=== PATIENT | female | born 1985 | race Caucasian/White ===

== ENCOUNTER → 2017-12-04 22:05 | Outpatient (CLI) | payer OTHER, SELFPAY ==
[2017-12-04 22:23] LABS: Absolute Lymphocyte Count 3.22 X10^3/ul (0.83-4.51); Absolute Neutrophil Count 6.9 X10^3/uL (2.0-7.7); Basophil# 0.02 X10^3/uL; Basophil% 0.2 % (0-1); Eosinophil# 0.18 X10^3/uL; Eosinophils% 1.6 % (0-5); Hematocrit 40.2 % (37-47); Hemoglobin 12.9 g/dl (12.0-15.0); Lymphocyte # 3.22 X10^3/ul (4.0); Mean Corp Hgb Conc 32.1 g/gl (32-36); Mean Corpuscular Hgb 29.7 pg (27.0-32.0); Mean Corpuscular Volume 92.4 fL (81-99); Mean Platelet Vol. 9.2 fl (6.2-12.0); Monocyte# 0.74 X10^3/uL; Monocyte% 6.7 % (0-10); Neutrophil # 6.89 X10^3/uL (2.7-7.7); POSITIVE COUNT NO; POSITIVE DIFFERENTIAL NO; POSITIVE MORPHOLOGY NO; Platelet Count 429 K/mm3 (150-450); RBC Distribution Width CV 13.3 % (11.6-14.6); RBC Distribution Width SD 44.3 fl (35.1-43.9); Red Blood Count 4.35 M/mm3 (4.2-5.4); White Blood Count 11.1 K/mm3 (4.4-11.0)
[2017-12-04 22:35] LABS: AST(SGOT) 13 U/L (15-37); Alanine Aminotransfer ALT/SGPT 33 U/L (13-56); Albumin, Serum 4.2 g/dL (3.2-5.0); Alkaline Phosphatase 100 U/L (45-117); Anion Gap 9 (5-15); BUN 13 mg/dL (7-18); Calcium,Total 9.1 mg/dL (8.5-10.1); Chloride 99 mmol/L (98-107); Cholesterol 170 mg/dL (200); Creatinine, Serum 0.87 mg/dL (0.55-1.02); EST Glomerular Filtration Rate 80 mL/min (>60); Est Glom Filt Rate - Afr Amer 96 mL/min (>60); Globulin 4.3 g/dL (2.2-4.2); Glucose 90 mg/dL (74-106); High Density Lipoprotein 47 mg/dL; Potassium 4.5 mmol/L (3.5-5.1); Protein, Total 8.5 g/dL (6.4-8.2); Sodium Level 131 mmol/L (136-145); Thyroid Stim Hormone (TSH) 1.93 uIU/mL (0.358-3.74); Triglycerides 160 mg/dL; Very Low Density Lipoprotein 32 mg/dL (5-40)
== END ==
PROVIDERS: Referring Provider Nurse Practitioner; Visit Provider Nurse Practitioner
DX: I10 Essential (primary) hypertension (principal); E03.9 Hypothyroidism, unspecified
CPT/HCPCS: 80053; 80061; 84443; 85025

== ENCOUNTER → 2018-12-03 21:08 | Outpatient (CLI) | payer OTHER, SELFPAY ==
[2018-12-03 17:07] VITALS: BMI 53.7
[2018-12-03 21:20] LABS: Absolute Lymphocyte Count 3.12 X10^3/uL (0.83-4.51); Absolute Neutrophil Count 7.1 X10^3/uL (2.0-7.7); Basophil# 0.06 X10^3/uL; Basophil% 0.5 % (0-1); Eosinophil# 0.41 X10^3/uL; Eosinophils% 3.5 % (0-5); Hematocrit 40.3 % (37-47); Hemoglobin 12.6 g/dL (12.0-15.0); Lymphocyte # 3.12 X10^3/ul (4.0); Lymphocyte % 26.8 % (19-41); Mean Corp Hgb Conc 31.3 g/dL (32-36); Mean Corpuscular Hgb 29.5 pg (27.0-32.0); Mean Corpuscular Volume 94.4 fL (81-99); Mean Platelet Vol. 9.3 fl (6.2-12.0); Monocyte# 0.93 X10^3/uL; NRBC Flagged by Analyzer 0 % (0-5); Neutrophil # 7.08 X10^3/uL (2.7-7.7); Neutrophil % 60.7 % (47-70); Platelet Count 437 K/mm3 (150-450); RBC Distribution Width CV 12.9 % (11.6-14.6); RBC Distribution Width SD 44.4 fl (35.1-43.9); Red Blood Count 4.27 M/mm3 (4.2-5.4); White Blood Count 11.7 K/mm3 (4.4-11.0)
[2018-12-03 21:33] LABS: ALB/GLOB Ratio 0.9 RATIO (0.9-2.4); AST(SGOT) 17 U/L (15-37); Alanine Aminotransfer ALT/SGPT 44 U/L (13-56); Albumin, Serum 3.8 g/dL (3.2-5.0); Alkaline Phosphatase 98 U/L (45-117); Anion Gap 9 (5-15); BUN 15 mg/dL (7-18); BUN/Creat Ratio 14.6 RATIO (10-20); Calcium,Total 8.7 mg/dL (8.5-10.1); Chloride 104 mmol/L (98-107); Creatinine, Serum 1.03 mg/dL (0.55-1.02); EST Glomerular Filtration Rate 65 mL/min (>60); Est Glom Filt Rate - Afr Amer 79 mL/min (>60); Globulin 4.1 g/dL (2.2-4.2); Glucose 93 mg/dL (74-106); Potassium 4.4 mmol/L (3.5-5.1); Protein, Total 7.9 g/dL (6.4-8.2); Sodium Level 136 mmol/L (136-145)
== END ==
PROVIDERS: Referring Provider Nurse Practitioner; Visit Provider Nurse Practitioner
DX: I10 Essential (primary) hypertension (principal)
CPT/HCPCS: 80053; 85025

== ENCOUNTER → 2020-01-03 | Outpatient (CLI) | payer OTHER, SELFPAY ==
[2020-01-03 21:30] VITALS: BMI 53.6
[2020-01-03 21:47] LABS: Absolute Lymphocyte Count 3.41 X10^3/uL (0.83-4.51); Absolute Neutrophil Count 7.5 X10^3/uL (2.0-7.7); Basophil# 0.06 X10^3/uL; Basophil% 0.5 % (0-1); Eosinophil# 0.25 X10^3/uL; Hematocrit 41.4 % (37-47); Hemoglobin 12.9 g/dL (12.0-15.0); Lymphocyte # 3.41 X10^3/ul (4.0); Mean Corp Hgb Conc 31.2 g/dL (32-36); Mean Corpuscular Hgb 29.6 pg (27.0-32.0); Mean Platelet Vol. 9.4 fl (6.2-12.0); Monocyte# 0.89 X10^3/uL; Monocyte% 7.3 % (0-10); NRBC Flagged by Analyzer 0 % (0-5); Neutrophil # 7.54 X10^3/uL (2.7-7.7); Neutrophil % 61.8 % (47-70); Platelet Count 508 K/mm3 (150-450); RBC Distribution Width CV 12.7 % (11.6-14.6); RBC Distribution Width SD 44.1 fl (35.1-43.9); Red Blood Count 4.36 M/mm3 (4.2-5.4); White Blood Count 12.2 K/mm3 (4.4-11.0)
[2020-01-03 22:15] LABS: ALB/GLOB Ratio 0.9 RATIO (0.9-2.4); AST(SGOT) 17 U/L (15-37); Alanine Aminotransfer ALT/SGPT 45 U/L (13-56); Albumin, Serum 3.9 g/dL (3.2-5.0); Alkaline Phosphatase 108 U/L (45-117); Anion Gap 7 (5-15); BUN 16 mg/dL (7-18); BUN/Creat Ratio 16.2 RATIO (10-20); Calcium,Total 9.2 mg/dL (8.5-10.1); Chloride 103 mmol/L (98-107); Cholesterol 175 mg/dL (200); Creatinine, Serum 0.99 mg/dL (0.55-1.02); EST Glomerular Filtration Rate 68 mL/min (>60); Est Glom Filt Rate - Afr Amer 82 mL/min (>60); Globulin 4.4 g/dL (2.2-4.2); Glucose 89 mg/dL (74-106); High Density Lipoprotein 45 mg/dL; Potassium 4.7 mmol/L (3.5-5.1); Protein, Total 8.3 g/dL (6.4-8.2); Sodium Level 136 mmol/L (136-145); Triglycerides 198 mg/dL; Very Low Density Lipoprotein 40 mg/dL (5-40)
== END | disposition home or self-care (01) ==
PROVIDERS: Referring Provider Nurse Practitioner; Visit Provider Nurse Practitioner
DX: R00.0 Tachycardia, unspecified (principal); I10 Essential (primary) hypertension
CPT/HCPCS: 80053; 80061; 85025

== ENCOUNTER → 2021-01-05 | Outpatient (CLI) | payer OTHER, SELFPAY ==
[2021-01-05 22:13] LABS: Absolute Lymphocyte Count 3.27 X10^3/uL (0.83-4.51); Absolute Neutrophil Count 7.2 X10^3/uL (2.0-7.7); Basophil# 0.06 X10^3/uL; Basophil% 0.5 % (0-1); Eosinophil# 0.21 X10^3/uL; Eosinophils% 1.8 % (0-5); Hematocrit 41.7 % (37-47); Lymphocyte # 3.27 X10^3/ul (0.83-4.51); Lymphocyte % 28.2 % (19-41); Mean Corp Hgb Conc 31.2 g/dL (32-36); Mean Corpuscular Hgb 29.8 pg (27.0-32.0); Mean Corpuscular Volume 95.6 fL (81-99); Mean Platelet Vol. 9.4 fl (6.2-12.0); Monocyte# 0.83 X10^3/uL; Monocyte% 7.2 % (0-10); NRBC Flagged by Analyzer 0 % (0-5); Neutrophil # 7.17 X10^3/uL (2.7-7.7); Neutrophil % 61.8 % (47-70); Platelet Count 514 K/mm3 (150-450); RBC Distribution Width CV 12.7 % (11.6-14.6); RBC Distribution Width SD 44.7 fl (35.1-43.9); Red Blood Count 4.36 M/mm3 (4.2-5.4); White Blood Count 11.6 K/mm3 (4.4-11.0)
[2021-01-05 22:40] LABS: ALB/GLOB Ratio 0.8 RATIO (0.9-2.4); AST(SGOT) 14 U/L (15-37); Alanine Aminotransfer ALT/SGPT 32 U/L (13-56); Albumin, Serum 3.7 g/dL (3.2-5.0); Alkaline Phosphatase 94 U/L (45-117); Anion Gap 7 (5-15); BUN 17 mg/dL (7-18); BUN/Creat Ratio 18.5 RATIO (10-20); Calcium,Total 9.6 mg/dL (8.5-10.1); Chloride 103 mmol/L (98-107); Cholesterol 181 mg/dL (200); Creatinine, Serum 0.92 mg/dL (0.55-1.02); EST Glomerular Filtration Rate 74 mL/min (>60); Est Glom Filt Rate - Afr Amer 89 mL/min (>60); Globulin 4.7 g/dL (2.2-4.2); Glucose 88 mg/dL (74-106); High Density Lipoprotein 44 mg/dL; Potassium 4.6 mmol/L (3.5-5.1); Protein, Total 8.4 g/dL (6.4-8.2); Sodium Level 134 mmol/L (136-145); Thyroid Stim Hormone (TSH) 1.87 uIU/mL (0.358-3.74); Triglycerides 204 mg/dL; Very Low Density Lipoprotein 41 mg/dL (5-40)
== END | disposition home or self-care (01) ==
PROVIDERS: Referring Provider Nurse Practitioner; Visit Provider Nurse Practitioner
DX: I10 Essential (primary) hypertension (principal); E28.2 Polycystic ovarian syndrome; E03.9 Hypothyroidism, unspecified
CPT/HCPCS: 80053; 80061; 84443; 85025

== ENCOUNTER 2022-01-06 21:34 | Outpatient (CLI) | payer OTHER, SELFPAY ==
[2022-01-06 22:11] LABS: ALB/GLOB Ratio 0.8 RATIO (0.9-2.4); AST(SGOT) 23 U/L (15-37); Alanine Aminotransfer ALT/SGPT 40 U/L (13-56); Albumin, Serum 3.5 g/dL (3.2-5.0); Alkaline Phosphatase 97 U/L (45-117); BUN 13 mg/dL (7-18); BUN/Creat Ratio 14.5 RATIO (10-20); Calcium,Total 9.3 mg/dL (8.5-10.1); Cholesterol 190 mg/dL (200); EST Glomerular Filtration Rate 75 mL/min (>60); Est Glom Filt Rate - Afr Amer 91 mL/min (>60); Globulin 4.4 g/dL (2.2-4.2); Glucose 93 mg/dL (74-106); Protein, Total 7.9 g/dL (6.4-8.2); Sodium Level 136 mmol/L (136-145); Triglycerides 236 mg/dL
[2022-01-06 22:12] LABS: Anion Gap 6 (5-15); Chloride 105 mmol/L (98-107); High Density Lipoprotein 45 mg/dL; Potassium 4.5 mmol/L (3.5-5.1); Very Low Density Lipoprotein 47 mg/dL (5-40)
[2022-01-06 22:29] LABS: Absolute Lymphocyte Count 2.87 X10^3/uL (0.83-4.51); Absolute Neutrophil Count 6.2 X10^3/uL (2.0-7.7); Basophil# 0.04 X10^3/uL; Basophil% 0.4 % (0-1); Eosinophil# 0.26 X10^3/uL; Eosinophils% 2.6 % (0-5); Hematocrit 39.9 % (37-47); Hemoglobin 12.8 g/dL (12.0-15.0); Lymphocyte # 2.87 X10^3/ul (0.83-4.51); Lymphocyte % 28.3 % (19-41); Mean Corp Hgb Conc 32.1 g/dL (32-36); Mean Corpuscular Hgb 30.5 pg (27.0-32.0); Mean Platelet Vol. 9.5 fl (6.2-12.0); Monocyte# 0.75 X10^3/uL; Monocyte% 7.4 % (0-10); NRBC Flagged by Analyzer 0 % (0-5); Neutrophil # 6.18 X10^3/uL (2.7-7.7); Neutrophil % 60.9 % (47-70); Platelet Count 448 K/mm3 (150-450); RBC Distribution Width CV 13.7 % (11.6-14.6); RBC Distribution Width SD 47.2 fl (35.1-43.9); White Blood Count 10.1 K/mm3 (4.4-11.0)
== END 2022-01-06 23:59 | disposition home or self-care (01) ==
PROVIDERS: Visit Provider Nurse Practitioner
DX: Z00.00 Encounter for general adult medical examination without abnormal findings (principal)
CPT/HCPCS: 80053; 80061; 85025

== ENCOUNTER → 2023-01-04 | Outpatient (CLI) | payer OTHER, SELFPAY ==
[2023-01-04 20:33] LABS: Absolute Lymphocyte Count 2.82 X10^3/uL (0.83-4.51); Absolute Neutrophil Count 7.5 X10^3/uL (2.0-7.7); Basophil# 0.03 X10^3/uL; Basophil% 0.3 % (0-1); Eosinophil# 0.17 X10^3/uL; Eosinophils% 1.5 % (0-5); Hematocrit 40.3 % (37-47); Lymphocyte # 2.82 X10^3/ul (0.83-4.51); Mean Corp Hgb Conc 32.3 g/dL (32-36); Mean Corpuscular Hgb 30.4 pg (27.0-32.0); Mean Corpuscular Volume 94.4 fL (81-99); Mean Platelet Vol. 9.5 fl (6.2-12.0); Monocyte# 0.75 X10^3/uL; Monocyte% 6.7 % (0-10); NRBC Flagged by Analyzer 0 % (0-5); Neutrophil # 7.45 X10^3/uL (2.7-7.7); Neutrophil % 66.1 % (47-70); Platelet Count 442 K/mm3 (150-450); RBC Distribution Width CV 12.9 % (11.6-14.6); RBC Distribution Width SD 44.2 fl (35.1-43.9); Red Blood Count 4.27 M/mm3 (4.2-5.4); White Blood Count 11.3 K/mm3 (4.4-11.0)
[2023-01-04 21:01] LABS: ALB/GLOB Ratio 0.8 RATIO (0.9-2.4); AST(SGOT) 11 U/L (15-37); Alanine Aminotransfer ALT/SGPT 27 U/L (13-56); Albumin, Serum 3.3 g/dL (3.2-5.0); Alkaline Phosphatase 79 U/L (45-117); Anion Gap 8 (5-15); BUN 10 mg/dL (7-18); BUN/Creat Ratio 12.8 RATIO (10-20); Calcium,Total 9.5 mg/dL (8.5-10.1); Chloride 103 mmol/L (98-107); Cholesterol 154 mg/dL (200); Creatinine, Serum 0.78 mg/dL (0.55-1.02); EST Glomerular Filtration Rate 88 mL/min (>60); Est Glom Filt Rate - Afr Amer 106 mL/min (>60); Globulin 4.4 g/dL (2.2-4.2); Glucose 97 mg/dL (74-106); High Density Lipoprotein 52 mg/dL; Potassium 4.3 mmol/L (3.5-5.1); Protein, Total 7.7 g/dL (6.4-8.2); Sodium Level 134 mmol/L (136-145); Thyroid Stim Hormone (TSH) 2.45 uIU/mL (0.358-3.74); Triglycerides 186 mg/dL; Very Low Density Lipoprotein 37 mg/dL (5-40)
[2023-01-04 21:19] LABS: hCG Titer Quant., Serum 23683 mIU/mL (1-3)
== END | disposition home or self-care (01) ==
PROVIDERS: PCP Nurse Practitioner; Visit Provider Nurse Practitioner
DX: O16.9 Unspecified maternal hypertension, unspecified trimester (principal); O99.280 Endocrine, nutritional and metabolic diseases complicating pregnancy, unspecified trimester; E03.9 Hypothyroidism, unspecified; E78.1 Pure hyperglyceridemia; Z3A.00 Weeks of gestation of pregnancy not specified
CPT/HCPCS: 80053; 80061; 84443; 84702; 85025

== ENCOUNTER → 2023-01-24 | Outpatient (CLI) | payer OTHER, SELFPAY ==
[2023-01-24 15:09] LABS: Absolute Lymphocyte Count 2.87 X10^3/uL (0.83-4.51); Absolute Neutrophil Count 8.1 X10^3/uL (2.0-7.7); Basophil# 0.04 X10^3/uL; Basophil% 0.3 % (0-1); Eosinophil# 0.11 X10^3/uL; Eosinophils% 0.9 % (0-5); Hematocrit 37.8 % (37-47); Hemoglobin 12.4 g/dL (12.0-15.0); Lymphocyte # 2.87 X10^3/ul (0.83-4.51); Lymphocyte % 24.3 % (19-41); Mean Corp Hgb Conc 32.8 g/dL (32-36); Mean Corpuscular Hgb 29.7 pg (27.0-32.0); Mean Corpuscular Volume 90.6 fL (81-99); Mean Platelet Vol. 9.2 fl (6.2-12.0); Monocyte# 0.68 X10^3/uL; Monocyte% 5.7 % (0-10); NRBC Flagged by Analyzer 0 % (0-5); Neutrophil # 8.08 X10^3/uL (2.7-7.7); Neutrophil % 68.4 % (47-70); Platelet Count 413 K/mm3 (150-450); RBC Distribution Width CV 12.6 % (11.6-14.6); RBC Distribution Width SD 41.7 fl (35.1-43.9); Red Blood Count 4.17 M/mm3 (4.2-5.4); White Blood Count 11.8 K/mm3 (4.4-11.0)
[2023-01-24 15:36] LABS: Hemoglobin A1c 5.8 % (3.8-5.6)
[2023-01-24 15:38] LABS: ALB/GLOB Ratio 0.7 RATIO (0.9-2.4); AST(SGOT) 14 U/L (15-37); Alanine Aminotransfer ALT/SGPT 32 U/L (13-56); Albumin, Serum 3.1 g/dL (3.2-5.0); Alkaline Phosphatase 93 U/L (45-117); Anion Gap 8 (5-15); BUN 11 mg/dL (7-18); BUN/Creat Ratio 13.2 RATIO (10-20); Calcium,Total 9.5 mg/dL (8.5-10.1); Chloride 104 mmol/L (98-107); Creatinine, Serum 0.83 mg/dL (0.55-1.02); EST Glomerular Filtration Rate 81 mL/min (>60); Est Glom Filt Rate - Afr Amer 98 mL/min (>60); Globulin 4.5 g/dL (2.2-4.2); Glucose 95 mg/dL (74-106); Potassium 3.1 mmol/L (3.5-5.1); Protein, Total 7.6 g/dL (6.4-8.2); Sodium Level 135 mmol/L (136-145)
[2023-01-24 16:13] LABS: HIV - WCH Non-Reactive (Nonreactive); Hepatitis B Surface Antigen Non-Reactive (Nonreactive); Hepatitis C Antibody Non-Reactive (Nonreactive); Rubella IgG Reactive (Nonreactive); Syphilis Antibodies Non-reactive
[2023-01-24 16:44] LABS: NATERA MAILED SPECIMEN
[2023-01-24 18:05] LABS: Protein:Creat Ratio 115 mg/g CRE (0-200)
[2023-01-26 22:06] LABS: Chlamydia By Nucleic Acid AMP Negative (Negative); Gonococcus By Nucleic Acid AMP Negative (Negative)
[2023-01-28 21:07] LABS: HPV APTIMA, High Risk Negative (Negative)
== END | disposition home or self-care (01) ==
PROVIDERS: PCP Nurse Practitioner; Referring Provider Obstetrics & Gynecology; Visit Provider Obstetrics & Gynecology
DX: Z12.4 Encounter for screening for malignant neoplasm of cervix (principal); E66.01 Morbid (severe) obesity due to excess calories; O99.211 Obesity complicating pregnancy, first trimester; Z3A.00 Weeks of gestation of pregnancy not specified; O99.281 Endocrine, nutritional and metabolic diseases complicating pregnancy, first trimester; E03.9 Hypothyroidism, unspecified; O16.1 Unspecified maternal hypertension, first trimester; Z31.430 Encounter of female for testing for genetic disease carrier status for procreative management
CPT/HCPCS: 36415; 80053; 82570; 83036; 84156; 84439; 84443; 85025; 86703; 86762; 86780; 86803; 86850; 86900; 86901; 87086; 87340; 87491; 87591; 87624; 88175; G0145

== ENCOUNTER → 2023-05-03 | Outpatient (CLI) | payer OTHER, SELFPAY ==
--- NOTE | 2023-05-03 08:58 | ECHOD_ITS ---
Reason For Study: ARRHYTHMIA Procedure This was a 2D Doppler, Color Flow transthoracic echocardiogram. The study was technically difficult. Unable to utilize Definity for endocardiall image enhancement due to . Exam performed in department. Left Ventricle Normal LV size. Left ventricular systolic function is normal. The estimated ejection fraction is 57 %. Normal diastology for age. No regional wall motion abnormalities noted. Right Ventricle Normal RV size. Normal systolic function. Atria Normal left atrium. Normal right atrium. Mitral Valve Normal mitral valve. Tricuspid Valve Normal tricuspid valve. Mild (1+) tricuspid valve insufficiency. Pulmonary artery systolic pressure is 31 mmHg. Aortic Valve Trisinus/trileaflet aortic valve. Pulmonic Valve Normal pulmonic valve. Great Vessels Normal aortic root. The pulmonary artery is normal size. Inferior vena cava collapse with respiration. Pericardium/Pleural No pericardial effusion. MMode/2D Measurements & Calculations LVIDd: 5.6 cm IVSd: 0.67 cm Ao root diam: 3.0 cm LVIDs: 3.5 cm LVPWd: 0.93 cm RVDd: 3.7 cm FS: 38.8 % LAV(MOD-bp): 43.9 ml LVAd ap4: 36.6 cm2 SV(MOD-sp4): 68.7 ml LAV(MOD-bp) Indexed: 17.7 ml/m2 LVLd ap4: 8.7 cm LAV(MOD-sp2): 43.5 ml EDV(MOD-sp4): 126.3 ml LAV(MOD-sp4): 43.5 ml EDV(sp4-el): 131.5 ml LVAs ap4: 22.7 cm2 LVLs ap4: 7.8 cm ESV(MOD-sp4): 57.7 ml ESV(sp4-el): 55.9 ml EF(MOD-sp4): 54.3 % EF(sp4-el): 57.5 % SV(sp4-el): 75.6 ml LA A4 area: 16.0 cm2 LA dimension(2D): 3.7 cm RA A4 area: 11.5 cm2 Time Measurements MV dec time: 0.18 sec Doppler Measurements & Calculations MV E max keith: 61.9 cm/sec Lat Peak E' Keith: 11.1 cm/sec Med Peak E' Keith: 9.8 cm/sec MV A max keith: 71.6 cm/sec E/E' lat: 5.6 E/E' med: 6.3 MV E/A: 0.86 MV V2 max: 78.6 cm/sec MV P1/2t max keith: 69.6 cm/sec Ao V2 max: 143.9 cm/sec MV max P.5 mmHg MV P1/2t: 51.8 msec Ao max P.3 mmHg MV V2 mean: 53.8 cm/sec Ao V2 mean: 103.5 cm/sec MV mean P.3 mmHg MV dec slope: 394.0 cm/sec2 Ao mean P.6 mmHg MV V2 VTI: 15.9 cm MVA(P1/2t): 4.2 cm2 Ao V2 VTI: 26.7 cm AV (velocity ratio): 0.85 LV V1 max: 112.9 cm/sec PA V2 max: 118.2 cm/sec TR max keith: 272.1 cm/sec LV V1 max P.1 mmHg PA V2 mean: 83.0 cm/sec TR max P.6 mmHg LV V1 mean P.3 mmHg LV V1 mean: 87.7 cm/sec LV V1 VTI: 22.5 cm ECHO/Echo Complete Interpretation Summary Normal LV size. Left ventricular systolic function is normal. The estimated ejection fraction is 57 %. Pulmonary artery systolic pressure is 31 mmHg. Ordering Physician: Quincy Wang Referring Physician: Elizabeth Saeed; Mary Lou Merino Performed By: Emilie Ventura, PRINCE, RVT
--- OUTSIDE RECORDS SUMMARY | 2023-05-03 09:46 | XMS RPT_ITS | CCD ---
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, Nemesio L Primary Care Provide r Mary Lou Esposito DO Unavailable HAROLDO NEMESIO Gautam Primary Care Unavailable AYAH ANGELES Attending Unavailable MARY LOU ESPOSITO Referring Unavailab EVERARDO Vincent Referring Unavailable YASMANY PAINTING Attending Unavailable NEMESIO SAEED Primary Care Unavailable EVERARDO SOLIMAN Attending Unavailable EVERARDO SOLIMAN Referring Unavailable HAROLDO NEMESIO Gautam Primary Care Unavailable VELVET SAEEDA Gautam Primary Care Unavailable MARY LOU ESPOSITO Attending Unavailab MARY LOU Berman Referring Unavailab ELMA Rodriguez Referring Unavailable VELVET SAEEDA Gautam Primary Care Unavailable SALVATORE HUYNH Attending Unavailable NEMESIO SAEED Primary Care Unavailable SALVATORE HUYNH Referring Unavailable GUS KRAUSE Attending Unavailable NEMESIO SAEED Primary Care Unavailable SHAILA MALDONADO Attending UnavailMARY LOU Copeland Referring Unavailab le Medications Current Medications Medication Drug Class(es) Dates Sig (Normalized) Sig (Original) Blood Glucose Monitoring Suppl (ONE TOUCH ULTRA 2) w/Device KIT (1 source) Start: 4 Blood Glucose Monitoring Suppl (ONE TOUCH ULTRA 2) w/Device KIT See Admin Instructions 02/23/2023 Active 24 hr dilTIAZem hydrochloride 120 mg extended release oral capsule (1 source) Calcium Channel Gregorio Start: 3 take 1 capsule by mouth once daily dilTIAZem (CARDIZEM CD) 120 MG CP24 capsule Take 1 Capsule (120 mg) by mouth daily 02/14/2023 Active hydroCHLOROthiazide 25 mg oral tablet (1 source) Thiazide Diuretic Start: 3 take 1 tablet by mouth once daily hydroCHLOROthiazide (HYDRODIURIL) 25 MG TABS tablet Take 1 Tablet (25 mg) by mouth daily 01/17/2023 Active 3 ml insulin isophane, human 100 unt/ml pen injector (1 source) Start: 4 NOVOLIN N FLEXPEN 100 UNIT/ML SUPN Taking 70 units hs 03/06/2023 Active levothyroxine sodium 0.137 mg oral tablet (1 source) l-Thyroxine Start: 4 take 1 tablet by mouth once daily levothyroxine (SYNTHROID) 137 MCG tablet Take 1 Tablet (137 mcg) by mouth daily 02/23/2023 Active metFORMIN hydrochloride 1000 mg oral tablet (1 source) Biguanide Start: 4 take 1 tablet by mouth twice daily metFORMIN (GLUCOPHAGE) 1000 MG Take 1 Tablet (1,000 mg) by mouth 2 times daily 02/23/2023 Active MV-Min-Fe Fum-FA-DHA ( 1 PO) (1 source) MV-Min- Fe Fum-FA-DHA ( 1 PO) Take by mouth Active Problems Problem Classification Problem Date Documented Date Episodic/Chronic Diabetes or abnormal glucose tolerance complicating ; childbirth; or the puerperium (1 source) and type 2 diabetes mellitus; Translations: [Pre-existing type 2 diabetes mellitus, in , second trimester] Onset: 03-13-2023 03-20-2023 Chronic Hypertension complicating ; childbirth and the puerperium (1 source) Benign essential hypertension complicating AND/OR reason for care during ; Translations: [Pre-existing essential hypertension complicating , unspecified trimester] Onset: 03-13-2023 03-20-2023 Chronic Other complications of (1 source) Hypothyroidism in ; Translations: [Endocrine, nutritional and metabolic diseases complicating , unspecified trimester] Onset: 03-13-2023 03-20-2023 Episodic Other endocrine disorders (1 source) Polycystic ovary syndrome; Translations: [Polycystic ovarian syndrome] Onset: 03-13-2023 03-13-2023 Chronic Other nutritional; endocrine; and metabolic disorders (1 source) Obesity; Translations: [Obesity, unspecified] Onset: 03-13-2023 03-13-2023 Chronic Other screening for suspected conditions (not mental disorders or infectious disease) (1 source) Patient encounter status; Translations: [Encounter for screening for malformations] 04-10-2023 Episodic Residual codes; unclassified (2 sources) Family history of congenital anomaly of cardiovascular system; Translations: [Family history of other congenital malformations, deformations and chromosomal abnormalities] Onset: 03-20-2023 04-10-2023 Episodic Results Test Name Value Interpretation Reference Range Facil ity Encounters Encounter Date Encounter Type Care Provider Facility Start: 04-26-2023 End: 04-26-2023 ambulatory [facility] Start: 04-10-2023 End: 04-11-2023 ambulatory [facility] Start: 04-10-2023 End: 04-10-2023 Subsequent hospital visit by physician Everardo Soliman MD Work Phone: [facility] Plan of Treatment Date Care Activity Detail Author Start: 08-03-2023 End: 08-03-2023 Professional / ancillary services management 08/03/2023 2:00 PM EDT Ancillary Procedure Visit [facility] [address], [address] [place], [place] [address] [facility] Start: 07-06-2023 End: 07-06-2023 Professional / ancillary services management 07/06/2023 2:00 PM EDT Ancillary Procedure Visit [facility] [address], [address] [place], [place] [address] [facility] Start: 06-08-2023 End: 06-08-2023 Professional / ancillary services management 06/08/2023 2:00 PM EDT Ancillary Procedure Visit [facility] [address] [place] [address] [facility] Start: 05-11-2023 End: 05-11-2023 Professional / ancillary services management 05/11/2023 2:00 PM EDT Ancillary Procedure [facility] [address] [place] [address] [facility] Start: 04-26-2023 End: 04-26-2023 Patient encounter procedure 04/26/2023 8:00 AM EST Office Visit [facility] [address], [place] [id number] Everardo Soliman MD [address] [address] [place], [place] [id number] Yasmany Painting MD [place], [place] [id number] [facility] Start: 10-21-2022 COVID-19 (2022-03 4 season) COVID-19 ( season) [facility] Start: 2005 Microscopic observat ion [Identifier] in Cervix by Cyto stain Pap Smear [facility] Start: 06-27-2003 Hepatitis B (1 of 3 - 19+ 3-dose series) Hepatitis B (1 of 3 - 19+ 3-dose series) [facility] Start: 2000 MenB (1 of 2 - MenB 2-Dose Series Bexsero) MenB (1 of 2 - MenB 2-Dose Series Bexsero) [facility] Start: 1997 Varicella (1 of 2 - 13+ 2-dose series) Varicella (1 of 2 - 13+ 2-dose series) [facility] Start: 06-27-1991 Tetanus Diphtheria a nd Pertussis Vaccines (1 - Tdap) Tetanus Diphtheria and Pertussis Vaccines (1 - Tdap) [facility] Start: 1985 MMR (1 of 1 - Standa rd series) MMR (1 of 1 - Standard series) [facility] Start: 1984 Hemoglobin A1c/Hemoglobin.total in Blood HbA1c [facility] End: 04-10-2023 [facility] Test: Chromosomes 13, 18, 21, X&Y, Triploidy, Optional 22Q 11.2 Deletion Panorame Test: Chromosomes 13, 18, 21, X&Y, Triploidy, Optional 22Q 11.2 Deletion Lab Timed Screening, , for malformation by ultrasound Family history of congenital cardiac septal defect 1 Occurrences starting 04/10/2023 until 04/10/2023 [facility] Work Phone: Payers Date Payer Category Payer Unknown 1984 Unknown [id number] 2.16.8 [id number] 1984 Unknown [id number] 2.16.8 [id number] 1984 Unknown [id number] 2.16.8 [id number] 1984 Unknown [id number] 2.16.8 [id number] 1984 Unknown [id number] 2.16. [id number] 1984 Unknown [id number] 2.16. [id number] 1984 Unknown [id number] 2.16. [id number] 1984 Unknown [id number] 2.16. [id number] 1984 Unknown [id number] 2.16. [id number] 1984 Unknown [id number] 2.16. [id number] 1984 Unknown [id number] 2.16. [id number] Unknown [id number] Social History Date Type Detail Facility Start: 03-13-2023 Tobacco smoking stat us NHIS Never smoked tobacco [facility] Start: 03-13-2023 Tobacco use and exposure Smokeless tobacco non-user [facility] Start: 04-10-2023 Alcoholic beverage intake Ex-drinker (finding) [facility] Start: 04-10-2023 History of Social function [facility] Start: 04-10-2023 Tobacco use panel [facility] Start: 11-04-2022 [facility] Start: 1985 Sex assigned at Not on file A [facility] Medical Equipment Procedure Code Equipment Code Equipment Origin al Text Equipment Identifier Dates Start: 02-23-2023 Evaluation note Note Date & Type Note Facility documented in this encounter [facility] Summary Purpose Family History No Family History Records FoundNo Family History Records Found Advance Directives No Advanced Directives Records FoundNo Advanced Directives Records Found Additional Source Comments INFORMATION SOURCE (unrecogn ized section and content) DATE CREATED AUTHOR AUTHOR'S ORGANIZ ATION 04/26/2023 [facility] Care Teams (unrecognized sec tion and content) FOR RECORDS PERTAINING TO PATIENTS WHO ARE OR HAVE BEEN ENROLLED IN A CHEMICAL DEPENDENCY/SUBSTANCEABUSE PROGRAM, SOME INFORMATION MAY BE OMITTED. This clinical summary was aggregated from multiple sources. Caution should be exercised in using it in the provision of clinical care. This summary normalizes information from multiple sources, and as a consequence, information in this document may materially change the coding, format and clinical context of patient data. In addition, data may be omitted in some cases. CLINICAL DECISIONS SHOULD BE BASED ON THE PRIMARY CLINICAL RECORDS. [facility] [employer] provides no warranty or guarantee of the accuracy or completeness of information in this document.
[2023-05-03 14:29] LABS: Absolute Neutrophil Count 10.2 X10^3/uL (2.0-7.7); Basophil# 0.02 X10^3/uL; Basophil% 0.1 % (0-1); Eosinophil# 0.12 X10^3/uL; Eosinophils% 0.9 % (0-5); Hematocrit 36.7 % (37-47); Lymphocyte % 17.8 % (19-41); Mean Corp Hgb Conc 32.7 g/dL (32-36); Mean Corpuscular Hgb 28.2 pg (27.0-32.0); Mean Corpuscular Volume 86.4 fL (81-99); Mean Platelet Vol. 9.1 fl (6.2-12.0); Monocyte# 0.62 X10^3/uL; Monocyte% 4.6 % (0-10); NRBC Flagged by Analyzer 0 % (0-5); Neutrophil # 10.24 X10^3/uL (2.7-7.7); Neutrophil % 76.2 % (47-70); Platelet Count 390 K/mm3 (150-450); RBC Distribution Width CV 13.8 % (11.6-14.6); RBC Distribution Width SD 43.2 fl (35.1-43.9); Red Blood Count 4.25 M/mm3 (4.2-5.4); White Blood Count 13.5 K/mm3 (4.4-11.0)
[2023-05-03 14:48] LABS: ALB/GLOB Ratio 0.6 RATIO (0.9-2.4); AST(SGOT) 13 U/L (15-37); Alanine Aminotransfer ALT/SGPT 18 U/L (13-56); Albumin, Serum 2.9 g/dL (3.2-5.0); Alkaline Phosphatase 99 U/L (45-117); Anion Gap 9 (5-15); BUN 11 mg/dL (7-18); Chloride 106 mmol/L (98-107); Creatinine, Serum 0.65 mg/dL (0.55-1.02); EST Glomerular Filtration Rate 109 mL/min (>60); Est Glom Filt Rate - Afr Amer 132 mL/min (>60); Globulin 4.7 g/dL (2.2-4.2); Glucose 92 mg/dL (74-106); Potassium 3.5 mmol/L (3.5-5.1); Protein, Total 7.6 g/dL (6.4-8.2); Sodium Level 136 mmol/L (136-145)
[2023-05-03 15:17] LABS: HIV - WCH Non-Reactive (Nonreactive); Syphilis Antibodies Non-reactive
== END | disposition home or self-care (01) ==
PROVIDERS: Obstetrics & Gynecology; PCP Nurse Practitioner; Referring Provider Internal Medicine Cardiovascular Disease; Visit Provider Internal Medicine Cardiovascular Disease
DX: O99.411 Diseases of the circulatory system complicating pregnancy, first trimester (principal); I07.1 Rheumatic tricuspid insufficiency; O99.891 Other specified diseases and conditions complicating pregnancy; R00.0 Tachycardia, unspecified; O09.91 Supervision of high risk pregnancy, unspecified, first trimester; Z3A.00 Weeks of gestation of pregnancy not specified; O24.111 Pre-existing type 2 diabetes mellitus, in pregnancy, first trimester; O16.1 Unspecified maternal hypertension, first trimester
CPT/HCPCS: 36415; 80053; 85025; 86703; 86780; 93306

== ENCOUNTER → 2023-06-12 | Outpatient (CLI) | payer OTHER, SELFPAY ==
--- NOTE | 2023-06-12 15:17 | US_ITS ---
STUDY: OBSTETRICAL ULTRASOUND - BIOPHYSICAL PROFILE REASON FOR EXAM: Female, 37 years old single artery and vein of umbilical cord LMP: 10/21/2022 PRIOR ULTRASOUND: None. TECHNIQUE: Transabdominal TECHNICAL QUALITY: Adequate. FINDINGS: There is a single intrauterine fetus. The fetus is in a cephalic presentation. There is demonstrated cardiac activity with a heart rate of 152 bpm. There is a normal amniotic fluid volume. The largest amniotic fluid pocket measures 5.3 cm. The amniotic fluid index (JODI) is 15 cm. The placenta is anterior in location and is not low lying. There are Grade 2 placental changes. Age by LMP: 33 weeks, 3 days. GARRET by LMP: 07/28/2023. BIOPHYSICAL PROFILE: Breathing Movements (FBM): 2 Gross Body Movements (GBM): 2 Tone (FT): 2 Amniotic Fluid Volume (AFV): 2 TOTAL SCORE: 8 / 8 US/Biophysical Prof W/O Non Stres IMPRESSION: Normal biophysical profile of 09/27. Electronically Signed: Mykel Steinberg MD at 16:15 EDT ,
== END | disposition home or self-care (01) ==
LOC: US 15:16
PROVIDERS: PCP Nurse Practitioner; Referring Provider Obstetrics & Gynecology; Visit Provider Obstetrics & Gynecology
DX: O69.5XX0 Labor and delivery complicated by vascular lesion of cord, not applicable or unspecified (principal); Z3A.00 Weeks of gestation of pregnancy not specified
CPT/HCPCS: 76819

== ENCOUNTER → 2023-06-15 | Outpatient (CLI) | payer OTHER, SELFPAY ==
--- NOTE | 2023-06-15 12:12 | US_ITS ---
STUDY: OBSTETRICAL ULTRASOUND - BIOPHYSICAL PROFILE REASON FOR EXAM: Female, 37 years old well being, single artery and vein of umbilical cord LMP: October 21, 2022. PRIOR ULTRASOUND: Comparison is made with prior study June 12, 2023. TECHNIQUE: Transabdominal TECHNICAL QUALITY: Adequate. FINDINGS: There is a single intrauterine fetus. The fetus is in a cephalic presentation. There is demonstrated cardiac activity with a heart rate of 147 bpm. There is a normal amniotic fluid volume. The largest amniotic fluid pocket measures 5.9 cm. The amniotic fluid index (JODI) is 15.1 cm. The placenta is anterior in location and is not low lying. There are Grade 2 placental changes. Age by LMP: 33 weeks, 6 days. GARRET by LMP: July 28, 2023. BIOPHYSICAL PROFILE: Breathing Movements (FBM): 2 Gross Body Movements (GBM): 2 Tone (FT): 2 Amniotic Fluid Volume (AFV): 2 TOTAL SCORE: 8 / 8 US/Biophysical Prof W/O Non Stres IMPRESSION: Normal biophysical profile of 8/8. Electronically Signed: Sammy Vazquez MD at 9:20 EDT ,
== END | disposition home or self-care (01) ==
LOC: OPUS 12:09
PROVIDERS: PCP Nurse Practitioner; Referring Provider Obstetrics & Gynecology; Visit Provider Obstetrics & Gynecology
DX: O69.5XX0 Labor and delivery complicated by vascular lesion of cord, not applicable or unspecified (principal); Z3A.33 33 weeks gestation of pregnancy
CPT/HCPCS: 76819

== ENCOUNTER → 2023-06-19 | Outpatient (CLI) | payer OTHER, SELFPAY ==
--- NOTE | 2023-06-19 15:29 | US_ITS ---
STUDY: OBSTETRICAL ULTRASOUND - BIOPHYSICAL PROFILE REASON FOR EXAM: Female, 37 years old single artery and vein of umbilical cord LMP: PRIOR ULTRASOUND: None. TECHNIQUE: Transabdominal TECHNICAL QUALITY: Adequate. FINDINGS: There is a single intrauterine fetus. The fetus is in a cephalic presentation. There is demonstrated cardiac activity with a heart rate of 167 bpm. There is a normal amniotic fluid volume. The largest amniotic fluid pocket measures 5.3 x 4.2 cm. The amniotic fluid index (JODI) is 10.43 cm. The placenta is anterior and not low-lying There are Grade 2 placental changes. Age by LMP: 34 weeks, 3 days. GARRET by LMP: July 28, 2023. BIOPHYSICAL PROFILE: Breathing Movements (FBM): 2 Gross Body Movements (GBM): 2 Tone (FT): 2 Amniotic Fluid Volume (AFV): 2 TOTAL SCORE: 8 / 8 US/Biophysical Prof W/O Non Stres IMPRESSION: Normal biophysical profile of 09/27. Electronically Signed: Marvin Newton MD at 16:10 EDT ,
== END | disposition home or self-care (01) ==
PROVIDERS: PCP Nurse Practitioner; Referring Provider Obstetrics & Gynecology; Visit Provider Obstetrics & Gynecology
DX: O69.5XX0 Labor and delivery complicated by vascular lesion of cord, not applicable or unspecified (principal); Z3A.34 34 weeks gestation of pregnancy
CPT/HCPCS: 76819

== ENCOUNTER → 2023-06-22 | Outpatient (CLI) | payer OTHER, SELFPAY ==
--- NOTE | 2023-06-22 15:14 | US_ITS ---
STUDY: OBSTETRICAL ULTRASOUND - BIOPHYSICAL PROFILE REASON FOR EXAM: Female, 37 years old single artery and vein of umbilical cord- WELL BEING LMP: 10/21/2022 PRIOR ULTRASOUND: 06/19/2023. TECHNIQUE: Transabdominal TECHNICAL QUALITY: Adequate. FINDINGS: There is a single intrauterine fetus. The fetus is in a cephalic presentation. There is demonstrated cardiac activity with a heart rate of 164 bpm. There is a normal amniotic fluid volume. The largest amniotic fluid pocket measures 6.2 cm. The amniotic fluid index (JODI) is 11.8 cm. The placenta is anterior in location and is not low lying. There are Grade 2 placental changes. Age by LMP: 34 weeks, 6 days. GARRET by LMP: 07/28/2023. BIOPHYSICAL PROFILE: Breathing Movements (FBM): 2 Gross Body Movements (GBM): 2 Tone (FT): 2 Amniotic Fluid Volume (AFV): 2 TOTAL SCORE: 8 / 8 US/Biophysical Prof W/O Non Stres IMPRESSION: Normal biophysical profile of 09/27. Electronically Signed: Mykel Steinberg MD at 20:55 EDT ,
== END | disposition home or self-care (01) ==
LOC: US 15:13
PROVIDERS: PCP Nurse Practitioner; Referring Provider Obstetrics & Gynecology; Visit Provider Obstetrics & Gynecology
DX: Q27.0 Congenital absence and hypoplasia of umbilical artery (principal)
CPT/HCPCS: 76819

== ENCOUNTER → 2023-06-26 | Outpatient (CLI) | payer OTHER, SELFPAY ==
--- NOTE | 2023-06-26 15:28 | US_ITS ---
STUDY: OBSTETRICAL ULTRASOUND - BIOPHYSICAL PROFILE REASON FOR EXAM: Female, 38 years old single artery and vein of umbilical cord LMP: October 21, 2022. PRIOR ULTRASOUND: Comparison is made with prior study dated June 22, 2023. TECHNIQUE: Transabdominal TECHNICAL QUALITY: Adequate. FINDINGS: There is a single intrauterine fetus. The fetus is in a cephalic presentation. There is demonstrated cardiac activity with a heart rate of 144 bpm. There is a normal amniotic fluid volume. The largest amniotic fluid pocket measures 4.5 cm. The amniotic fluid index (JODI) is 11.4 cm. The placenta is anterior in location and is not low lying. There are Grade 3 placental changes. Age by LMP: 35 weeks, 3 days. GARRET by LMP: July 28, 2023. BIOPHYSICAL PROFILE: Breathing Movements (FBM): 2 Gross Body Movements (GBM): 2 Tone (FT): 2 Amniotic Fluid Volume (AFV): 2 TOTAL SCORE: 8 / 8 US/Biophysical Prof W/O Non Stres IMPRESSION: Normal biophysical profile of 09/27. Electronically Signed: Sammy Vazquez MD at 14:25 EDT ,
== END | disposition home or self-care (01) ==
LOC: OPUS 15:25 → US 15:27
PROVIDERS: Obstetrics & Gynecology; PCP Nurse Practitioner; Referring Provider Obstetrics & Gynecology; Visit Provider Obstetrics & Gynecology
DX: O69.5XX0 Labor and delivery complicated by vascular lesion of cord, not applicable or unspecified (principal); Z3A.00 Weeks of gestation of pregnancy not specified; Z80.3 Family history of malignant neoplasm of breast
CPT/HCPCS: 36415; 76819; 84443

== ENCOUNTER → 2023-06-29 | Outpatient (CLI) | payer OTHER, SELFPAY ==
--- NOTE | 2023-06-29 15:12 | US_ITS ---
STUDY: OBSTETRICAL ULTRASOUND - BIOPHYSICAL PROFILE REASON FOR EXAM: Female, 38 years old single artery and vein of umbilical cord LMP: PRIOR ULTRASOUND: 06/26/2023 TECHNIQUE: Transabdominal TECHNICAL QUALITY: Adequate. FINDINGS: There is a single intrauterine fetus. The fetus is in a breech presentation. There is demonstrated cardiac activity with a heart rate of 158 bpm. There is a normal amniotic fluid volume. The largest amniotic fluid pocket measures 5.2 cm. The amniotic fluid index (JODI) is 12.9 cm. The placenta is anterior in location and is not low lying. There are Grade 3 placental changes. BIOPHYSICAL PROFILE: Breathing Movements (FBM): 2 Gross Body Movements (GBM): 2 Tone (FT): 2 Amniotic Fluid Volume (AFV): 2 TOTAL SCORE: 8 / 8 US/Biophysical Prof W/O Non Stres IMPRESSION: Normal biophysical profile of 09/27. Electronically Signed: Rafael Osman MD at 11:24 EDT ,
== END | disposition home or self-care (01) ==
PROVIDERS: PCP Nurse Practitioner; Referring Provider Obstetrics & Gynecology; Visit Provider Obstetrics & Gynecology
DX: Q27.0 Congenital absence and hypoplasia of umbilical artery (principal)
CPT/HCPCS: 76819

== ENCOUNTER → 2023-07-03 | Outpatient (CLI) | payer OTHER, SELFPAY | END | disposition home or self-care (01) | LOC: LABSPEC 17:08 | PROVIDERS: PCP Nurse Practitioner; Referring Provider Advanced Practice Midwife; Visit Provider Advanced Practice Midwife | DX: Z34.90 Encounter for supervision of normal pregnancy, unspecified, unspecified trimester (principal); Z3A.00 Weeks of gestation of pregnancy not specified | CPT/HCPCS: 87081 ==

== ENCOUNTER 2023-07-14 10:02 | Inpatient (IN) | payer OTHER, SELFPAY ==
[2023-07-14] VITALS (13 sets, daily range): BP systolic 94–157; BP diastolic 58–88; PULSE 51–89; RESP 12–18; TEMP 36.3–36.8; O2SAT 96–100; BMI 53.9
[2023-07-14] MEDS: Lactated Ringers 1,000 ML 999 ML IV (10:20)
[2023-07-14 10:52] LABS: Absolute Lymphocyte Count 1.77 X10^3/uL (0.83-4.51); Absolute Neutrophil Count 5.5 X10^3/uL (2.0-7.7); Basophil# 0.02 X10^3/uL; Basophil% 0.3 % (0-1); Eosinophil# 0.12 X10^3/uL; Eosinophils% 1.5 % (0-5); Hematocrit 39.1 % (37-47); Hemoglobin 12.5 g/dL (12.0-15.0); Lymphocyte # 1.77 X10^3/ul (0.83-4.51); Lymphocyte % 22.1 % (19-41); Mean Corpuscular Hgb 27.7 pg (27.0-32.0); Mean Corpuscular Volume 86.7 fL (81-99); Mean Platelet Vol. 9.7 fl (6.2-12.0); Monocyte# 0.55 X10^3/uL; Monocyte% 6.9 % (0-10); NRBC Flagged by Analyzer 0 % (0-5); Neutrophil # 5.52 X10^3/uL (2.7-7.7); Neutrophil % 68.9 % (47-70); Platelet Count 351 K/mm3 (150-450); RBC Distribution Width CV 15.4 % (11.6-14.6); RBC Distribution Width SD 48.6 fl (35.1-43.9); Red Blood Count 4.51 M/mm3 (4.2-5.4)
[2023-07-14 10:56] LABS: Bedside Glucose 82 mg/dL (74-106)
[2023-07-14] MEDS: Acetaminophen 500 MG Tablet 1000 MG PO ×3 (11:18→23:10)
[2023-07-14] MEDS: Lactated Ringers 1,000 ML 150 ML IV (11:22)
[2023-07-14] MEDS: Sodium Citrate/Citric Acid 30 ML UDC PO (11:29)
--- NOTE | 2023-07-14 12:01 | PCM.HP.OB ---
HPI - General General Date of Admission: 07/14/23 HPI Narrative KAYLA VAIL, is a 38 y/o @ 38 weeks who presents to L&D for a primary section for chronic hypertension, type 2 dm, and transverse lie. Maternal Data Information GARRET Calculator Estimated Delivery Date Method Current WG Current Estimate 07/28/23 Ultrasound #1 38w 0d Other Estimates 08/25/23 LMP (Certain) 34w 0d PFSH PFS Medical History Breech presentation 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 trimester Hypokalemia Hypertriglyceridemia Preauricular adenopathy PCOS (polycystic ovarian syndrome) Tachycardia Hypothyroidism Hypertension Home Medications ?Medication ?Instructions ?Recorded ?Last Taken ?Type diltiazem HCl 120 mg 120 mg PO DAILY BP #30 caps 01/04/23 07/14/23 Rx capsule,extended release 24 hr (Cardizem CD) blood sugar diagnostic (True #150 ea 02/23/23 Unknown Rx Metrix Glucose Test Strip) blood-glucose meter (True Metrix #1 ea 02/23/23 Unknown Rx Glucose Meter) levothyroxine 137 mcg tablet 137 mcg PO DAILY hypothyroidism 02/23/23 07/14/23 Rx #90 tabs metformin 1,000 mg tablet 1,000 mg PO BID GDM #180 tabs 02/23/23 07/14/23 Rx pen needle, diabetic 32 gauge x #50 ea 03/03/23 Unknown Rx 5/32 (BD Ultra-Fine Lian Pen Needle) insulin NPH isoph U-100 human 100 50 unit subcut QHS GDM 03/15/23 07/12/23 History unit/mL (3 mL) subcutaneous pen (Humulin N NPH U-100 Insulin KwikPen) vitamin no.102-iron 90 1 cap PO DAILY 03/15/23 Unknown History mg-folate 1 mg-dha 200 mg capsule hydrochlorothiazide 25 mg tablet 25 mg PO QAM BP #90 tabs 04/12/23 07/14/23 Rx aspirin 81 mg capsule 81 mg PO DAILY HTN 07/14/23 Unknown History Allergy/AdvReac Type Severity Reaction Status Date / Time No Known Allergies Allergy Verified 07/14/23 10:33 Family History Grandmother Breast cancer, Onset Age: 60 Maternal Aunt Breast cancer, Onset Age: 60 Maternal Other Diabetes Hypertension Surgical History (Updated 07/14/23 @ 10:42 by Erin Oseguera) History of surgery [place] teeth extracted Social History adopted: No household members: spouse current occupational status: employed 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 History 1 Elective abortions Hx Para 0 Spontaneous abortions Hx # Term Pregnancies Ectopic pregnancies Hx # Pregnancies Multiple births # of living children Visit Details Expected Delivery Route/Plan Labor Preferences- CB/BF classes: [] labor support person: [] labor intervention preferences: [] pain management options preferred: [] cut cord/dad catch: [] : [] PP control planned: [] discussed possible routes of delivery and associated risks: [] special requests: [] Plans Covid status: [] Flu vaccine: [] Tdap vaccine: [] Rhogam: [] LARC form signed: [] Problem list reviewed and updated with the most current plan of care details and appropriate orders placed. Relevant counseling for the gestational age provided. Continue routine care and follow up unless otherwise noted in visit notes/problem list details OB Flowsheet Initial Weight: Not Recorded Date <del>?</del> EGA Weight BP Urine Prot <del>?</del> Glucose FHR FuHt Pres Dilation <del>?</del> Effaced St Visit Note 01/24/23 <del>?</del> 13w 4d 344 lb 129/86 <del>?</del> 163 <del>?</del> JV- CRL measuring 13 weeks 4 days. not consistent with LMP. will need mfm consult, cardiology cs, and hga1c on metformin. desires NIPT and carrier testing. 02/07/23 <del>?</del> 15w 4d 347 lb Negative <del>?</del> Negative <del>?</del> KW- no vb/cramping. elevated bp today. reports good bps at home. KW- no vb/cramping. elevated bp today. start ASA 81mg. reports good bps at home. Set up BP monitoring through [facility] and to do 2x daily. call with bp 150/90 or higher. Has anatomy US with MFM for 04/03. this puts her at 23 weeks. New order sent and will try to change date. Discussed NOB labs and NIPT/carrier. has appt with 02/23 for DM. Follow up in 2 weeks for BP review. handheld US for FHR-visualized strong FH today 02/23/23 <del>?</del> 17w 6d 347 lb 6 oz 131/86 Negative <del>?</del> Negative 150 <del>?</del> KW- no vb cramping. BP check today. Had appt with and is starting BS monitoring. BPs under 150/90. MFM consult placed for chronic HTN. has anatomy scan 03/16. doing well. 03/07/23 <del>?</del> 19w 4d 341 lb 2 oz 136/86 Negative <del>?</del> Negative 147 <del>?</del> JV- fasting glucose levels are still elevated but is working with Dr. Reyez. Has anatomy scan 03/16. bp stable. pt lost 6 pounds by eating better. 04/05/23 <del>?</del> 23w 5d 331 lb 6 oz 139/89 Negative <del>?</del> Negative 145 <del>?</del> JV- has appt for echo and genetic counselor next week. plan growth scans q month. 05/03/23 <del>?</del> 27w 5d 330 lb 136/86 Trace <del>?</del> Negative 152 <del>?</del> JV- pt to get 28 week labs today and rpt cmp for trace protein in urine. continue home bp monitoring plan twice weekly nsts at 32 weeks. 05/23/23 <del>?</del> 30w 4d Negative <del>?</del> Negative 139 <del>?</del> JV- normal glucose levels. starting nsts next visit but patient knows may need bpp's. next growth is end of may. last one 05/10 was normal 52%. 06/05/23 <del>?</del> 32w 3d 230 lb 132/82 Negative <del>?</del> Negative 140 <del>?</del> JV- normal glucose log and bp. nst reactive. has growth scan and will return next week for biweekly nsts. 06/12/23 <del>?</del> 33w 3d 331 lb 137/89 Negative <del>?</del> Negative 140 <del>?</del> SM- unable to obtain nst due to body habitus, ordered twice weekly nsts until 36 weeks and then will switch back to twice weekly nsts for screenings. no vb lof good fm no regular ctx 06/19/23 <del>?</del> 34w 3d 331 lb 131/86 Negative <del>?</del> Negative 143 36 <del>?</del> JV- normal glucose levels, has bpp today 4:30. no lof, vaginal bleeding, or dec fm. 06/26/23 <del>?</del> 35w 3d 332 lb 2 oz 135/88 Negative <del>?</del> Negative 150 40 <del>?</del> JV- glucose levels are under 100, fasting levels under 90 bp levels are 120's-130s'/80's JV- glucose levels are under 100, fasting levels under 90 bp levels are 120's-130s'/80's. today has bpp at [facility] as well as bpp at [facility]. monday sees alfred and needs NST, MFM growth scan is next week + growth on , 07/03/23 <del>?</del> 36w 3d 334 lb 6 oz 145/83 Negative <del>?</del> Negative 145 0 <del>?</del> KW- NST reactive. baby breech. growth us on 07/05. will determine POC after US. Has both IOL and C/S scheduled. TO call [facility] after growth US to confirm mode of delivery. has NST with JV on monday. 07/10/23 <del>?</del> 37w 3d 333 lb 4 oz 126/85 Negative <del>?</del> Negative 150 Transverse <del>?</del> JV- reactive nst. bp's starting to creep up at home (140's/90's) she is asymptomatic. has primary section scheduled for monday. baby is transverse and she states that even if gets to vtx by monday, she wants a primary section. ROS Constitutional Constitutional: Denies change in weight, fatigue, fever(s), headache(s), poor appetite or weakness Eyes Eyes: Denies blurry vision, change in vision, seeing flashes or spots in vision ENT HEENT: Denies dizziness, headache(s), loss taste/smell or sore throat Cardiovascular Cardiovascular: Denies chest pain, dizziness, dyspnea, irregular heart rhythm, leg edema, palpitations, rapid heart rate or vomiting Respiratory/Chest Respiratory/Chest: Denies chest tightness, cough, dyspnea or breast pain Gastrointestinal Gastrointestinal: Denies abdominal pain, anorexia, constipation, cramping, diarrhea, hemorrhoids, vomiting or weight changes Genitourinary Genitourinary: Denies dysuria, flank pain, genital lesions, genital pain, urinary frequency or urinary urgency Musculoskeletal Musculoskeletal: Denies back pain, difficulty walking, joint pain, limited range of motion, muscle cramps or numbness Integumentary Integumentary: Denies lesions or unusual bruising Neurologic Neurologic: Denies abnormal movements, abnormal speech, dizziness, numbness, seizure-like activity or syncope Psychiatric Psychiatric: Denies anxiety, behavioral changes, change in appetite, change in libido, cognitive impairment, confusion, depression, difficulty concentrating, hallucinations or suicidal thoughts Endocrine Endocrinology: Denies excessive sweating, polydipsia or polyuria Hematologic/Lymphatic Hematologic/Lymphatic: Denies easy bleeding, easy bruising or lymphadenopathy Allergic/Immunologic Allergic/Immunologic: Denies itchy eyes, lip swelling, seasonal rhinorrhea, rhinitis, throat swelling, tongue swelling, eczemia, wheezing or asthma Vital Signs Vital Signs Vital Signs: 07/14/23 10:38 Temperature 98.3 F Temperature Source Temporal Pulse Rate 78 Respiratory Rate 16 Blood Pressure 139/74 H Blood Pressure Mean 95 Blood Pressure Source Monitor Blood Pressure Position Semi-Fowlers Blood Pressure Location Right Arm Pulse Ox 98 Oxygen Delivery Method Room Air Weight Weight: 334 lb 3.2 oz Body Mass Index (BMI) 53.9 Physical Exam Const alert, oriented x3, no apparent distress and healthy appearing General Appearance: cooperative; Negative for anxious HEENT normocephalic Face and Sinus: normal facial exam Eyes EOMs intact bilaterally and no scleral icterus General Eye: normal appearance of both eyes Neck full ROM and supple Lymph Lymphatic: no lymphadenopathy noted Chest Chest: abnormal inspection of the chest Resp normal respiratory effort Effort and Inspection: able to speak in complete sentences Cardio regular rate GI soft to palpation and non-tender Inspection: gravid Palpation: soft; Negative for tender Back/Spine no CVA tenderness Extremity normal to inspection, full ROM and no clubbing, cyanosis or edema General Extremity: Negative for calf tenderness or edema Skin Lesions: no lesions Rashes: no rashes Psych mental status grossly normal Labs Labs Labs: Blood Type A POSITIVE Antibody Screen NEGATIVE Hct 39.1 % (37-47) Hgb 12.5 g/dL (12.0-15.0) Syphilis Total Ab Non-reactive Rubella IgG Antibody Reactive (Nonreactive) Hep Bs Antigen Non-Reactive (Nonreactive) Hepatitis C Antibody Non-Reactive (Nonreactive) Chlamydia DNA (BAMBI) Negative (Negative) N.gonorrhoeae DNA (BAMBI) Negative (Negative) HIV 1&2 Antibody Non-Reactive (Nonreactive) Miscellaneous Test Assessment & Plan (1) Skin pain: (2) Skin tags, multiple acquired: (3) 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: COMMENT: growth q 4 weeks. twice weekly testing at 32 weeks, nl growth (4) AMA (advanced maternal age) primigravida 35+: (5) Type 2 diabetes mellitus affecting in first trimester, antepartum: COMMENT: 4 times daily testing (6) Morbid obesity with BMI of 50.0-59.9, adult: COMMENT: HgbA1c with NOB labs (7) FH: breast cancer: COMMENT: Maternal Grandma & Maternal Aunt (8) FH: congenital heart problem: COMMENT: echo between 22-24 weeks at [facility]. hole in heart with surgical repair. (9) Supervision of high-risk : COMMENT: PRR, , GARRET 08/25/23, Lam (10) : QUALIFIERS: Weeks of gestation: 36 weeks Qualified Code(s): Z3A.36 - 36 weeks gestation of COMMENT: GBS neg, nl anatomy (will get rest of views at next US),NIPT insufficient DNA, Carrier 4/4 negative (11) Hypothyroidism: QUALIFIERS: Hypothyroidism type: acquired Qualified Code(s): E03.9 - Hypothyroidism, unspecified COMMENT: Levothyroxine-labs every 6-8 weeks antibodies neg at 17 weeks (12) Hypertension: QUALIFIERS: Hypertension type: essential hypertension Qualified Code(s): I10 - Essential (primary) hypertension COMMENT: delivery between 37-38 weeks. Baseline labs normal with NOB labs/Currently taking HCTZ. WP monitor given start testing at 32 twice weekly q 1 month growth scan (13) Breech presentation: COMMENT: primary scheduled for 07/13 @ 12 with JV (14) 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 trimester: (15) Hypertriglyceridemia: (16) Hypokalemia: (17) Tachycardia: PLAN: Plan After discussing the patient's diagnosis and treatment plan options, patient wishes to proceed with surgical management. I have discussed with the patient the risks, benefits, and alternatives of the procedure which include but are not limited to risks of anesthesia, bleeding, infection, possible damage to bowel, bladder, or surrounding vasculature which could lead to additional surgery to evaluate any complications. Patient agrees to procedure and wishes to proceed. ACOG/uptodate references given for additional information regarding procedure.
[2023-07-14] MEDS: Cefazolin 3 GM in 0.9% Normal Saline (100mL Bag) 100 ML IV (12:02)
--- NOTE | 2023-07-14 13:03 | EX.PCM.OBRPT ---
Assessment & Plan (1) Skin pain: (2) 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: COMMENT: growth q 4 weeks. twice weekly testing at 32 weeks, nl growth (3) Skin tags, multiple acquired: (4) AMA (advanced maternal age) primigravida 35+: (5) Type 2 diabetes mellitus affecting in first trimester, antepartum: COMMENT: 4 times daily testing (6) Morbid obesity with BMI of 50.0-59.9, adult: COMMENT: HgbA1c with NOB labs (7) FH: breast cancer: COMMENT: Maternal Grandma & Maternal Aunt (8) FH: congenital heart problem: COMMENT: echo between 22-24 weeks at [facility]. hole in heart with surgical repair. (9) Supervision of high-risk : COMMENT: PRR, , GARRET 08/25/23, Lam (10) : QUALIFIERS: Weeks of gestation: 36 weeks Qualified Code(s): Z3A.36 - 36 weeks gestation of COMMENT: GBS neg, nl anatomy (will get rest of views at next US),NIPT insufficient DNA, Carrier /4 negative (11) Hypothyroidism: QUALIFIERS: Hypothyroidism type: acquired Qualified Code(s): E03.9 - Hypothyroidism, unspecified COMMENT: Levothyroxine-labs every 6-8 weeks antibodies neg at 17 weeks (12) Hypertension: QUALIFIERS: Hypertension type: essential hypertension Qualified Code(s): I10 - Essential (primary) hypertension COMMENT: delivery between 37-38 weeks. Baseline labs normal with NOB labs/Currently taking HCTZ. WP monitor given start testing at 32 twice weekly q 1 month growth scan (13) Breech presentation: COMMENT: primary scheduled for 07/13 @ 12 with JV (14) 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 trimester: (15) Hypertriglyceridemia: (16) Hypokalemia: (17) Tachycardia: Maternal Data Information GARRET Calculator Estimated Delivery Date Method Current WG Current Estimate 07/28/23 Ultrasound #1 38w 0d Other Estimates 08/25/23 LMP (Certain) 34w 0d Details Operative Information Date of Procedure: 07/14/23 Pre-Operative Diagnosis: 38 y/o @ 38 weeks, transverse lie, chronic hypertension, morbid obesity, and type 2 DM Post-Operative Diagnosis: 38 y/o @ 38 weeks, transverse lie, chronic hypertension, morbid obesity, and type 2 DM Classification: Scheduled Procedure Type: low transverse Type of Anesthesia: Spinal Antibiotic Given: Ancef 3 grams IV x1 Estimated Blood Loss: 500cc Procedure Start Time: 12:24 Time of Delivery: 12:34 Findings Description of Procedure: Procedure: The patient was brought to the operating room and spinal anesthesia was found to be adequate. She was prepped and draped in the normal sterile fashion and was placed in a dorsal supine position with a leftward tilt. Pfannenstiel skin incision was made with a scalpel and carried through to the underlying layers. The fascia was nicked in the midline and extended laterally using Garces scissors. The anterior aspect of the fascia was grasped with Kat clamps and the underlying rectus muscles dissected off using the Metzenbaum scissors. The inferior aspect the fascia was also grasped with Kat clamps and the underlying rectus muscle dissected off with the Metzenbaum scissors. The rectus muscles were in the midline. Peritoneum was entered sharply. The uterus was identified and a bladder blade was inserted into the abdomen. Bladder flap was created off the uterus using Metzenbaum scissors. A transverse incision was made with a scalpel and extended laterally manually. The 's head was grasped with the help of my healthcare administrative assistant and fundal pressure the infant. The bandage scissors were used to incise the rectus muscles for better maniupation. The was delivered through the uterine incision without difficulty. The mouth and nares were bulb suctioned. After a 30 second delay the cord was clamped and cut. The was handed off to the awaiting sky cap for routine assessment. Placenta was delivered manually without difficulty. The uterus was exteriorized and cleared of all clots and debris. Incision was closed with an 0 Vicryl suture in a running locked fashion. Second layer of 1-0 monocryl suture was used in imbricating manner to create excellent closure and hemostasis. The uterus was returned to the abdomen. The gutters were cleared of all clots and debris. The peritoneum was closed in a pursestring pattern using a 3-0 Vicryl suture. This muscle was reapproximated with a 3-0 Vicryl. The fascia was closed with an 0-PDS suture. Subcutaneous tissue layer was closed using a plain gut suture. The skin was closed with a 4-0 Monocryl subcuticular stitch. The skin was also sealed with surgical glue. The patient tolerated the procedure well sponge lap and needle counts were correct at each tissue closure plane and the patient is now being brought to the recovery room in stable condition Presentation: Positive for ROP (right transverse lie ) Amniotic Membrane Rupture Type: Artificial Amniotic Fluid Description: Clear Placental Delivery Description: Manual Removal Placenta Disposition: [facility] Cord Vessel Description: 3 Vessels Cord Entanglement: None A Gender: Female (1 minute): 8 (5 minute): 8 Delayed Cord Clamping: Yes Complications Risks of Surgery Discussed w/Patient: Anesthesia Risks, Infection, Need for Future C-Sections and Injury to surrounding structure(s) including bowel and bladder Multi Select Codes Urinary/Genital Urinary/Genital CPT Codes: 53157 Delivery [facility]
[2023-07-14] MEDS: Oxytocin 15 Units/NS 250ml 15 UNITS/250 ML IV.SOLN 83 UNITS IV (13:25)
[2023-07-14] MEDS: Ketorolac 30 MG/ML Syringe IV ×2 (14:39→20:59)
[2023-07-14 16:24] LABS: Syphilis Antibodies Non-reactive
[2023-07-14] MEDS: Lactated Ringers 1,000 ML 100 ML IV (16:36)
[2023-07-14] MEDS: oxyCODONE 5 MG Tablet PO ×2 (16:37→23:10)
[2023-07-14] MEDS: 0.9% Saline Lock 10 ML Syringe IV (20:59)
[2023-07-14 22:38] LABS: Bedside Glucose 89 mg/dL (74-106)
[2023-07-14 22:38] LABS: Bedside Glucose 178 mg/dL (74-106)
[2023-07-14] MEDS: Insulin NPH Human 100 UNITS/ML PEN 25 UNITS SC (23:11)
[2023-07-15] VITALS (8 sets, daily range): BP systolic 119–156; BP diastolic 60–81; PULSE 62–75; RESP 14–16; TEMP 36.4–37.3; O2SAT 96–100
[2023-07-15] MEDS: Enoxaparin 40 MG/0.4 ML Syringe SC ×2 (01:01→13:09)
[2023-07-15] MEDS: Ketorolac 30 MG/ML Syringe IV ×2 (02:26→08:07)
[2023-07-15] MEDS: 0.9% Saline Lock 10 ML Syringe IV ×2 (02:26→08:08)
[2023-07-15] MEDS: oxyCODONE 5 MG Tablet PO ×5 (04:03→21:35)
[2023-07-15] MEDS: Acetaminophen 500 MG Tablet 1000 MG PO ×3 (05:14→19:10)
[2023-07-15 05:37] LABS: Bedside Glucose 104 mg/dL (74-106)
[2023-07-15] MEDS: Levothyroxine 137 MCG Tablet PO (06:01)
[2023-07-15 06:16] LABS: Hematocrit 29.3 % (37-47); Hemoglobin 9.5 g/dL (12.0-15.0); Mean Corp Hgb Conc 32.4 g/dL (32-36); Mean Corpuscular Hgb 28.3 pg (27.0-32.0); Mean Corpuscular Volume 87.2 fL (81-99); Mean Platelet Vol. 9.6 fl (6.2-12.0); Platelet Count 263 K/mm3 (150-450); RBC Distribution Width CV 15.6 % (11.6-14.6); RBC Distribution Width SD 49.4 fl (35.1-43.9); Red Blood Count 3.36 M/mm3 (4.2-5.4); White Blood Count 11.2 K/mm3 (4.4-11.0)
--- NOTE | 2023-07-15 09:40 | PN.OBGYN_ITS ---
Subjective Subjective Patient is laying in bed comfortably without complaints. She states that she slept on an off during the night. Lochia is mild and pain is minimal. Objective Data Objective Data Vital Signs: Vital Signs Temp Pulse Resp BP Pulse Ox O2 Del Method 99.1 F 73 14 126/73 H 97 Room Air 07/15/23 08:00 07/15/23 08:00 07/15/23 08:00 07/15/23 08:00 07/15/23 08:00 07/15/23 08:00 Oxygen Delivery Method Room Air Weight: 334 lb 3.2 oz Body Mass Index (BMI) 53.9 Intake & Output: Intake and Output for Last 24 Hours 07/13/23 07/14/23 07/15/23 23:59 23:59 23:59 Intake Total 1545 / 1545 1000 / 1000 Output Total 1850 / 1850 400 / 400 Balance -305 / -305 600 / 600 Lab / Micro Data 07/15/23 06:05 Labs: Laboratory Results - last 24 hr 07/14/23 10:20: WBC 8.0, RBC 4.51, Hgb 12.5, Hct 39.1, MCV 86.7, MCH 27.7, MCHC 32.0, RDW Std Deviation 48.6 H, RDW Coeff of Deborah 15.4 H, Plt Count 351, MPV 9.7, Immature Gran % (Auto) 0.300, Neut % (Auto) 68.9, Lymph % (Auto) 22.1, [place] % (Auto) 6.9, Eos % (Auto) 1.5, Baso % (Auto) 0.3, Absolute Neuts (auto) 5.5, Absolute Lymphs (auto) 1.77, Nucleated RBC % 0, Syphilis Total Ab Non-reactive, Blood Type A POSITIVE, Antibody Screen NEGATIVE 07/14/23 10:36: POC Glucose 82 07/14/23 14:53: POC Glucose 89 07/14/23 22:20: POC Glucose 178 H 07/15/23 05:05: POC Glucose 104 07/15/23 06:05: WBC 11.2 H, RBC 3.36 L, Hgb 9.5 L, Hct 29.3 L, MCV 87.2, MCH 28.3, MCHC 32.4, RDW Std Deviation 49.4 H, RDW Coeff of Deborah 15.6 H, Plt Count 263, MPV 9.6 ROS Constitutional Constitutional: Reports systems reviewed and no addt'l complaints, except as documented Cardiovascular Cardiovascular: Denies chest pain, dizziness, dyspnea or irregular heart rhythm Respiratory/Chest Respiratory/Chest: Denies cough, pain on inspiration or shortness of breath at rest Gastrointestinal Gastrointestinal: Denies abdominal pain, nausea or vomiting Genitourinary Genitourinary: Denies burning urination Musculoskeletal Musculoskeletal: Denies muscle cramps, muscle spasms or muscle weakness Neurologic Neurologic: Denies confusion, dizziness, headache(s) or lack of coordination Psychiatric Psychiatric: Denies anxiety, behavioral changes or depression Physical Exam HEENT normocephalic Resp normal respiratory effort and normal air movement GI soft to palpation, non-tender and non-distended Rectal Exam: other Other Details: Incision is clean, dry, and intact no CVA tenderness Extremity normal to inspection General Extremity: edema bilateral (trace ) Assessment & Plan (1) Status post section: (2) Morbid obesity with BMI of 50.0-59.9, adult: COMMENT: HgbA1c with NOB labs (3) Type 2 diabetes mellitus affecting in first trimester, antepartum: COMMENT: 4 times daily testing (4) AMA (advanced maternal age) primigravida 35+: (5) 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: COMMENT: growth q 4 weeks. twice weekly testing at 32 weeks, nl growth (6) FH: breast cancer: COMMENT: Maternal Grandma & Maternal Aunt (7) FH: congenital heart problem: COMMENT: echo between 22-24 weeks at [facility]. hole in heart with surgical repair. (8) Supervision of high-risk : COMMENT: PRR, , GARRET 08/25/23, Lam (9) : QUALIFIERS: Weeks of gestation: 36 weeks Qualified Code(s): Z 3A.36 - 36 weeks gestation of COMMENT: GBS neg, nl anatomy (will get rest of views at next US),NIPT insufficient DNA, Carrier 4/4 negative (10) Hypothyroidism: QUALIFIERS: Hypothyroidism type: acquired Qualified Code(s): E 03.9 - Hypothyroidism, unspecified COMMENT: Levothyroxine-labs every 6-8 weeks antibodies neg at 17 weeks (11) Hypertension: QUALIFIERS: Hypertension type: essential hypertension Qualified Code(s): I10 - Essential (primary) hypertension COMMENT: delivery between 37-38 weeks. Baseline labs normal with NOB labs/Currently taking HCTZ. WP monitor given start testing at 32 twice weekly q 1 month growth scan (12) Breech presentation: COMMENT: primary scheduled for 07/13 @ 12 with JV (13) 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 trimester: (14) Hypertriglyceridemia: (15) Hypokalemia: (16) Tachycardia: PLAN: Plan s/p LTCS PPD # 1 1. routine post care 2. breast feeding- support given 3. rh positive 4. rubella immune 5 type 2 dm- continue metformin bid, hold insulin 6. chronic hypertension- continue home medications 7.dc planning- plan at soonest, to dc home tomorrow.
--- NOTE | 2023-07-15 09:40 | PCM.DC ---
Discharge Instructions Diet Discharge Diet: No restrictions Activity Discharge Activity: May Not Drive (for 2 weeks or while taking narcotic pain medications.), May Shower and May Take a Tub Bath (in 7 days.) May resume sexual activity in: 4-6 weeks Weight Bearing Status: Full weight bearing Lifting Restrictions: 20 pounds Dressing / Incision Call your doctor if your incision/area has: Continuous Slow Oozing, Sudden Increased Bleeding, Increased Pain/ Swelling, Increased Redness and Foul Smelling Discharge Call your doctor if you observe: Fever of 101 or Higher and Using more than 1 pad per hour Suture Line Care: Avoid Pulling/Pushing and Avoid Pinching/Bending Cleanse incision/area with: Soap & Water and Keep Dressing Clean & Dry Follow Up Care Please Follow Up With: Mary Lou Pa DO When: Call [phone] to make an appointment for an incision check in 1-2 weeks. Test Results: Test results from this visit will be discussed in further detail at your follow-up appointment, if applicable. Discharge Plan Admission Admit Date/Time: 07/14/23 10:02 Attending Provider: Mary Lou Pa Primary Care Provider: Elizabeth Saeed NP Discharge Orders/Prescriptions Prescriptions: New ibuprofen 800 mg tablet 800 mg PO Q8H PRN (Reason: pain) Qty: 30 0RF oxycodone-acetaminophen [Percocet] 5-325 mg tablet 1 tab PO Q4H PRN (Reason: pain) 7 Days Qty: 30 0RF Rx Instructions: 1-2 tabs q 4 hrs as needed for pain Continued metformin 1,000 mg tablet 1,000 mg PO BID Qty: 180 2RF levothyroxine 137 mcg tablet 137 mcg PO DAILY Qty: 90 3RF PNV [id number]-orai-niozin-dha 90 mg iron- 1 mg-200 mg capsule 1 cap PO DAILY diltiazem HCl [Cardizem CD] 120 mg capsule,extended release 24hr 120 mg PO DAILY Qty: 30 12RF hydrochlorothiazide 25 mg tablet 25 mg PO QAM Qty: 90 4RF Discontinued Humulin N NPH Insulin KwikPen 100 unit/mL (3 mL) insulin pen 50 unit subcut QHS aspirin 81 mg capsule 81 mg PO DAILY No Action (DME) blood-glucose meter [True Metrix Glucose Meter] Misc See Rx Instructions .Route Qty: 1 0RF Rx Instructions: As directed (DME) True Metrix Glucose Test Strip Strip See Rx Instructions .Route Qty: 150 8RF Rx Instructions: 4 times daily (DME) pen needle, diabetic [BD Ultra-Fine Lian Pen Needle] 32 gauge x 5/32 needle See Rx Instructions .ROUTE .MEDSUPPLY Qty: 50 4RF Rx Instructions: daily Referrals / Follow Up: Elizabeth Saeed NP, HOME APPLIANCE INSTALLER-C [Primary Care Provider] - Disposition Disposition (needs filled in before D/C Order can be placed): Home, Self Care
[2023-07-15] MEDS: Senna/Docusate Sodium 1 Tablet PO (10:48)
[2023-07-15] MEDS: hydroCHLOROthiazide 25 MG Tablet PO (10:49)
[2023-07-15] MEDS: dilTIAZem CD 120 MG Capsule PO (10:49)
[2023-07-15] MEDS: metFORMIN HCl 1,000 MG Tablet 1000 MG PO ×2 (10:55→16:42)
[2023-07-15 10:59] LABS: Bedside Glucose 114 mg/dL (74-106)
[2023-07-15] MEDS: Naproxen 500 MG Tablet PO (16:42)
[2023-07-15 18:28] LABS: Bedside Glucose 93 mg/dL (74-106)
[2023-07-15 20:23] LABS: Bedside Glucose 105 mg/dL (74-106)
[2023-07-15] MEDS: SimETHICONE 80 MG Chewable Tablet PO (20:38)
[2023-07-16] MEDS: Acetaminophen 500 MG Tablet 1000 MG PO ×2 (01:26→07:22)
[2023-07-16] MEDS: Enoxaparin 40 MG/0.4 ML Syringe SC (01:26)
[2023-07-16] MEDS: Naproxen 500 MG Tablet PO ×2 (01:26→08:34)
[2023-07-16 01:30] VITALS: BP 128/72; PULSE 74; RESP 16; TEMP 36.6
[2023-07-16] MEDS: oxyCODONE 5 MG Tablet PO ×2 (03:16→08:42)
[2023-07-16] MEDS: Levothyroxine 137 MCG Tablet PO (05:26)
[2023-07-16 08:00] VITALS: BP 124/69; PULSE 78; RESP 16; TEMP 36.6; O2SAT 97
[2023-07-16] MEDS: metFORMIN HCl 1,000 MG Tablet 1000 MG PO (08:33)
[2023-07-16] MEDS: hydroCHLOROthiazide 25 MG Tablet PO (08:33)
[2023-07-16] MEDS: dilTIAZem CD 120 MG Capsule PO (08:33)
[2023-07-16] MEDS: SimETHICONE 80 MG Chewable Tablet PO (08:42)
--- NOTE | 2023-07-16 09:16 | DS.PCM_ITS ---
Providers Date of Admission: 07/14/23 Primary Care Physician: WADE Maldonado Reason For Visit: PRIMARY Diagnosis Discharge Diagnosis (1) Status post section: Status: Acute Code(s): Z98.891 - History of uterine scar from previous surgery (2) Morbid obesity with BMI of 50.0-59.9, adult: Status: Chronic Code(s): E66.01 - Morbid (severe) obesity due to excess calories; Z68.43 - Body mass index [BMI] 50.0-59.9, adult (3) Type 2 diabetes mellitus affecting in first trimester, antepartum: Status: Resolved Code(s): O24.111 - Pre-existing type 2 diabetes mellitus, in , first trimester (4) AMA (advanced maternal age) primigravida 35+: Status: Resolved Code(s): O09.519 - Supervision of elderly primigravida, unspecified trimester (5) 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: Status: Resolved Code(s): Q27.0 - Congenital absence and hypoplasia of umbilical artery (6) FH: breast cancer: Status: Acute Code(s): Z80.3 - Family history of malignant neoplasm of breast (7) FH: congenital heart problem: Status: Acute Code(s): Z82.79 - Family history of other congenital malformations, deformations and chromosomal abnormalities (8) Supervision of high-risk : Status: Resolved Code(s): O09.90 - Supervision of high risk , unspecified, unspecified trimester (9) : Status: Resolved Code(s): Z34.90 - Encounter for supervision of normal , unspecified, unspecified trimester Qualifiers: Weeks of gestation: 36 weeks Qualified Code(s): Z3A.36 - 36 weeks gestation of (10) Hypothyroidism: Status: Resolved Code(s): E03.9 - Hypothyroidism, unspecified Qualifiers: Hypothyroidism type: acquired Qualified Code(s): E03.9 - Hypothyroidism, unspecified (11) Hypertension: Status: Resolved Code(s): I10 - Essential (primary) hypertension Qualifiers: Hypertension type: essential hypertension Qualified Code(s): I10 - Essential (primary) hypertension (12) Breech presentation: Status: Acute Code(s): O32.1XX0 - Maternal care for breech presentation, not applicable or unspecified (13) 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 trimester: Status: Chronic Code(s): O24.912 - Unspecified diabetes mellitus in , second trimester (14) Hypertriglyceridemia: Status: Resolved Code(s): E78.1 - Pure hyperglyceridemia (15) Hypokalemia: Status: Resolved Code(s): E87.6 - Hypokalemia (16) Tachycardia: Status: Resolved Code(s): R00.0 - Tachycardia, unspecified Plan s/p LTCS PPD # 1 1. routine post care 2. breast feeding- support given 3. rh positive 4. rubella immune 5 type 2 dm- continue metformin bid, hold insulin 6. chronic hypertension- continue home medications 7.dc planning- plan at soonest, to hi home tomorrow. Medications at Discharge Home Medications diltiazem HCl 120 mg capsule,extended release 24 hr (Cardizem CD) 120 mg PO DAILY BP #30 caps 01/04/23 blood sugar diagnostic (True Metrix Glucose Test Strip) #150 ea 02/23/23 blood-glucose meter (True Metrix Glucose Meter) #1 ea 02/23/23 levothyroxine 137 mcg tablet 137 mcg PO DAILY hypothyroidism #90 tabs 02/23/23 metformin 1,000 mg tablet 1,000 mg PO BID GDM #180 tabs 02/23/23 pen needle, diabetic 32 gauge x 5/32 (BD Ultra-Fine Lian Pen Needle) #50 ea 03/03/23 vitamin no.102-iron 90 mg-folate 1 mg-dha 200 mg capsule 1 cap PO DAILY 03/15/23 hydrochlorothiazide 25 mg tablet 25 mg PO QAM BP #90 tabs 04/12/23 ibuprofen 800 mg tablet 800 mg PO Q8H PRN pain #30 tabs 07/15/23 oxycodone-acetaminophen 5 mg-325 mg tablet (Percocet) 1 tab PO Q4H PRN pain 7 days #30 tabs 07/15/23 Hospital Course Operations section Summary of Care Provided Minutes Spent on Discharge: 30 Hospital Course: The patient was admitted for a repeat section on 07/14/23 for transverse presentation, chronic htn, and gdm. There were no complications. On day #1 she was tolerating pain well and ambulating, on day #2 she was ready for discharge. Physical Exam HEENT normocephalic Resp normal respiratory effort and normal air movement GI soft to palpation, non-tender and non-distended Rectal Exam: other Other Details: Incision is clean, dry, and intact no CVA tenderness Extremity normal to inspection General Extremity: edema bilateral (trace ) Weight / BMI Weight Weight: 334 lb 3.2 oz Body Mass Index (BMI) 53.9 ABG / Lab / Microbiology Data 07/15/23 06:05 Laboratory: Laboratory Results - last 24 hr 07/15/23 10:39: POC Glucose 114 H 07/15/23 14:39: POC Glucose 93 07/15/23 20:01: POC Glucose 105 D/C Instructions Discharge Diet: No restrictions May resume sexual activity in: 4-6 weeks Weight Bearing Status: Full weight bearing Call your doctor if your incision/area has: Continuous Slow Oozing, Sudden Increased Bleeding, Increased Pain/ Swelling, Increased Redness and Foul Smelling Discharge Call your doctor if you observe: Fever of 101 or Higher and Using more than 1 pad per hour Suture Line Care: Avoid Pulling/Pushing and Avoid Pinching/Bending Cleanse incision/area with: Soap & Water and Keep Dressing Clean & Dry Please Follow Up With: Mary Lou Pa DO When: Call [phone] to make an appointment for an incision check in 1-2 weeks. Meaningful Use Info Meaningful Use Meaningful Use Diagnoses (Choose all that apply): None applicable Ischemic Stroke Statin Dosing Therapy Reference: STATIN DOSE THERAPY REFERENCE: * Patients > 75 years receive moderate or high dose statin therapy. * Patients 75 years or YOUNGER should receive HIGH intensity statin dose unless contraindicated. You will be required to document reason for non-treatment if statin daily dose does not meet guidelines. HIGH DOSE STATIN THERAPY DAILY Atorvastatin > than or = to 40 mg Rosuvastatin > than or = to 20 mg Amlodipine + Atorvastatin > than or = to 2.5/40 mg Ezetimibe + Simvastatin 10/80 mg Simvastatin 80mg Discharge Plan Admission Admit Date/Time: 07/14/23 10:02 Attending Provider: Mary Lou Pa Primary Care Provider: Elizabeth Saeed NP Discharge Orders/Prescriptions Prescriptions: New ibuprofen 800 mg tablet 800 mg PO Q8H PRN (Reason: pain) Qty: 30 0RF oxycodone-acetaminophen [Percocet] 5-325 mg tablet 1 tab PO Q4H PRN (Reason: pain) 7 Days Qty: 30 0RF Rx Instructions: 1-2 tabs q 4 hrs as needed for pain Continued metformin 1,000 mg tablet 1,000 mg PO BID Qty: 180 2RF levothyroxine 137 mcg tablet 137 mcg PO DAILY Qty: 90 3RF PNV 280-vzid-tskvdy-dha 90 mg iron- 1 mg-200 mg capsule 1 cap PO DAILY diltiazem HCl [Cardizem CD] 120 mg capsule,extended release 24hr 120 mg PO DAILY Qty: 30 12RF hydrochlorothiazide 25 mg tablet 25 mg PO QAM Qty: 90 4RF Discontinued Humulin N NPH Insulin KwikPen 100 unit/mL (3 mL) insulin pen 50 unit subcut QHS aspirin 81 mg capsule 81 mg PO DAILY No Action (DME) blood-glucose meter [True Metrix Glucose Meter] Misc See Rx Instructions .Route Qty: 1 0RF Rx Instructions: As directed (DME) True Metrix Glucose Test Strip Strip See Rx Instructions .Route Qty: 150 8RF Rx Instructions: 4 times daily (DME) pen needle, diabetic [BD Ultra-Fine Lian Pen Needle] 32 gauge x 5/32 needle See Rx Instructions .ROUTE .MEDSUPPLY Qty: 50 4RF Rx Instructions: daily Referrals / Follow Up: Elizabeth Saeed NP, PACKAGING LINE OPERATOR-C [Primary Care Provider] - Disposition Disposition (needs filled in before D/C Order can be placed): Home, Self Care
--- NOTE | 2023-07-21 13:57 | NURSING ---
Follow up phone call made, no answer, left voicemail
== END 2023-07-16 11:05 | disposition home or self-care (01) | DRG 787 ==
PROVIDERS: Admitting Provider Obstetrics & Gynecology; PCP Nurse Practitioner; Visit Provider Obstetrics & Gynecology
PROC: 10D00Z1 Extraction of Products of Conception, Low, Open Approach (ICD-10-PCS; CPT 59514; principal; 2023-07-14 11:45)
DX: O32.2XX0 Maternal care for transverse and oblique lie, not applicable or unspecified (principal); O10.02 Pre-existing essential hypertension complicating childbirth; E66.01 Morbid (severe) obesity due to excess calories; E03.9 Hypothyroidism, unspecified; O24.425 Gestational diabetes mellitus in childbirth, controlled by oral hypoglycemic drugs; O99.284 Endocrine, nutritional and metabolic diseases complicating childbirth; O99.214 Obesity complicating childbirth; O69.5XX0 Labor and delivery complicated by vascular lesion of cord, not applicable or unspecified; Z3A.38 38 weeks gestation of pregnancy; Z37.0 Single live birth; Z79.899 Other long term (current) drug therapy; Z82.79 Family history of other congenital malformations, deformations and chromosomal abnormalities
CPT/HCPCS: 59025; 59050; 82962; 85025; 85027; 86780; 86850; 86900; 86901; 99221; J7120; A4216; G0378; J2405

== ENCOUNTER 2023-07-21 14:54 | Emergency (ER) | payer OTHER, SELFPAY ==
[2023-07-21 14:55] VITALS: BP 160/99; PULSE 98; RESP 16; TEMP 36.6; O2SAT 99; BMI 52.9
--- NOTE | 2023-07-21 15:19 | VDLE_ITS ---
Reason For Study: LT HIP PAIN Procedure LEFT This is a venous duplex using B-mode, color GSV is normal. flow and spectral Doppler. CFV is compressible, spontaneous, phasic, Exam performed portable in ED. competent, and demonstrates normal The study was technically difficult. augmentation. Due to body habitus. FV is compressible, spontaneous, phasic, A preliminary report was called and/or faxed competent and demonstrates normal to Violet GALINDO @ 15:45 PM. augmentation. POP V is compressible, spontaneous, phasic, competent and demonstrates normal augmentation. T/P Trunk is compressible. PTV is compressible. LT PerV is compressible. VL/Venous Duplex US, Unilateral Interpretation Summary Deep veins of the left lower extremity are patent and compressible segmentally. There is no evidence of left lower extremity deep vein thrombosis. Valvular competence appears intac t within the proximal deep venous system on the left . The left great saphenous vein appears patent a nd compressible segmentally. Ordering Physician: Avis Kennedy Referring Physician: Elizabeth Saeed Performed By: Emilie Ventura, PRINCE, RVT
--- NOTE | 2023-07-21 15:25 | EDS_ITS ---
HPI <JOSIE Quezada - Last Filed: 07/21/23 19:37> History of Present Illness Chief Complaint: Lower Extremity Injury Narrative Narrative: Patient presenting today with pain to the left lower back that radiates down into the left buttocks and posterior aspect of her left lower extremity. She has had this pain over the last several days. She also reports more swelling than usual to her bilateral lower extremities. She reports that she just had a performed on Monday, she messaged her HUMAN RESOURCES COORDINATOR, Dr. Black today who recommended coming in to have a venous duplex ultrasound to rule out DVT of her left leg. She denies any history of DVT. She denies any fever, chills, history of sciatica, bowel/bladder incontinence, saddle paresthesia, and urinary symptoms. [facility] <JOSIE Quezada - Last Filed: 07/21/23 19:37> [facility] Medical History Skin pain Skin tags, multiple acquired FH: breast cancer FH: congenital heart problem Supervision of high-risk Breech presentation 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 trimester Hypokalemia Hypertriglyceridemia Preauricular adenopathy PCOS (polycystic ovarian syndrome) Tachycardia Hypothyroidism Hypertension Home Medications ?Medication ?Instructions ?Recorded ?Last Taken ?Type diltiazem HCl 120 mg 120 mg PO DAILY BP #30 caps 01/04/23 07/14/23 Rx capsule,extended release 24 hr (Cardizem CD) blood sugar diagnostic (True #150 ea 02/23/23 Unknown Rx Metrix Glucose Test Strip) blood-glucose meter (True Metrix #1 ea 02/23/23 Unknown Rx Glucose Meter) levothyroxine 137 mcg tablet 137 mcg PO DAILY hypothyroidism 02/23/23 07/14/23 R x #90 tabs metformin 1,000 mg tablet 1,000 mg PO BID GDM #180 tabs 02/23/23 07/14/23 Rx pen needle, diabetic 32 gauge x #50 ea 03/03/23 Unknown Rx (BD Ultra-Fine Lian Pen Needle) vitamin no.102-iron 90 1 cap PO DAILY 03/15/23 Unknown History mg-folate 1 mg-dha 200 mg capsule hydrochlorothiazide 25 mg tablet 25 mg PO QAM BP #90 tabs 04/12/23 07/14/23 Rx ibuprofen 800 mg tablet 800 mg PO Q8H PRN pain #30 tabs 07/15/23 Unknown Rx oxycodone-acetaminophen 5 mg-325 1 tab PO Q4H PRN pain 7 days #30 07/15/23 Unknown Rx mg tablet (Percocet) tabs cyclobenzaprine 10 mg tablet 10 mg PO TID PRN Muscle Spasm #20 07/21/23 Unknown Rx TABLETS Allergy/AdvReac Type Severity Reaction Status Date / Time No Known Allergies Allergy Verified 07/21/23 14:55 Family History Grandmother Breast cancer, Onset Age: 60 Maternal Aunt Breast cancer, Onset Age: 60 Maternal Other Diabetes Hypertension Surgical History Status post section History of surgery Gall[place] teeth extracted Social History adopted: No household members: spouse current occupational status: employed 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[employer] [facility] <JOSIE Quezada - Last Filed: 07/21/23 19:37> [facility] ED Constitutional Constitutional ED: Denies chills or fever(s) Cardiovascular Cardiovascular: Denies chest pain Respiratory/Chest Respiratory/Chest: Denies dyspnea Gastrointestinal Gastrointestinal: Denies abdominal pain, nausea or vomiting Genitourinary Genitourinary ED: Denies dysuria or hematuria Musculoskeletal Musculoskeletal: Reports arthralgias, back pain and myalgias Integumentary Denies rash Neurologic Neurologic: Denies paresthesias EXAM <JOSIE Quezada - Last Filed: 07/21/23 19:37> Physical Exam Const Vital Signs: 07/21/23 14:55 07/21/23 16:52 Temperature 97.8 F 97.8 F Temperature Source Temporal Pulse Rate 98 89 Respiratory Rate 16 18 Blood Pressure 160/99 H 161/74 H Blood Pressure Mean 119 103 Pulse Ox 99 99 Oxygen Delivery Method Room Air Positive well nourished, well developed and no apparent distress General Appearance ED: well developed HEENT Reports normocephalic and head/scalp atraumatic Mouth ED: Yes moist mucous membranes normal Eyes PERRL and EOMs intact bilaterally Neck full ROM and supple Chest Wall inspection of chest normal Resp normal respiratory effort and clear to auscultation bilaterally Cardio regular rate and regular rhythm GI soft to palpation, non-tender, non-distended and no masses GI Narrative: scar healing without any erythema, purulent discharge, or dehiscence. Back/Spine normal ROM and normal to inspection Back/Spine Narrative: No pain to palpation to the left lumbar paraspinal muscles, no pain to palpation to the left hip. She does have reproducible pain to the posterior aspect of the left thigh and buttocks. No asymmetric swelling to the bilateral lower extremities. Left DP pulse 2+, good capillary refill, sensation intact. Thoracic Spine / Upper Back: Negative for thoracic spinal tenderness Lumbar Spine / Lower Back: Negative for lumbar spinal tenderness Extremity normal to inspection and full ROM Neuro oriented x3, CN's II-XII intact bilaterally, moves all extremities, no focal motor deficits and no sensory deficits noted Sensorium / Orientation: awake and alert Psych mental status grossly normal and thought process normal Skin no rashes or lesions noted and no wounds <Duglas Trotter MD - Last Filed: 07/21/23 20:09> Physical Exam Const Vital Signs: 07/21/23 14:55 07/21/23 16:52 Temperature 97.8 F 97.8 F Temperature Source Temporal Pulse Rate 98 89 Respiratory Rate 16 18 Blood Pressure 160/99 H 161/74 H Blood Pressure Mean 119 103 Pulse Ox 99 99 Oxygen Delivery Method Room Air MDM <JOSIE Quezada - Last Filed: 07/21/23 19:37> [facility] Narrative Medical decision making narrative: Patient presenting today due to pain that radiates from her left lower back down the posterior aspect of her left lower extremity. She was sent in by her HUMAN RESOURCES COORDINATOR to rule out DVT. She has no history of this. She does not have any asymmetric swelling, negative Homans' sign on the left. She does not have any symptoms of cauda equina syndrome, no injury to her back or midline spinal tenderness to necessitate need for imaging. Venous duplex ultrasound of the left lower extremity is negative for DVT. I do feel her symptoms are consistent with sciatica. She has been taking Tylenol and ibuprofen at home, I will give her a prescription for Flexeril. Encouraged that she follow-up with her PCP and she will be discharged home in stable condition. <Duglas Trotter MD - Last Filed: 07/21/23 20:09> [facility] Treatment and Re-Evaluation :: Dr. Trotter: I have personally performed a face to face assessment of the patient and have reviewed the CARLOS Note. I performed a substantive portion of the visit including all aspects of the following. My ellis findings include: History is left lower extremity pain, left buttocks pain radiating to hip and somewhat downward and posterior leg. Exam is afebrile. Vital signs noted. Trace pedal edema bilaterally and symmetric. Neurovascular intact bilateral lower extremities. Medical Decision Making: Concern is for sciatica versus DVT. She was sent in by HUMAN RESOURCES COORDINATOR for ultrasound rule out. Ultrasound obtained and radiology report reviewed, she is negative for DVT. Treatment be symptomatic for her presumed s ciatica. She will continue her naproxen that was prescribed for her and she has oxycodone as well. Muscle relaxer will be added. Disposition is discharged home in stable condition. Other additions or changes: [None] Discharge Plan Triage Chief Complaint: Lower Extremity Injury ED Midlevel Provider: Avis Kennedy ED Provider: Duglas Trotter Dx/Rx/DC Orders Clinical Impression: Sciatica of left side Instructions: ED Sciatica Prescriptions: New cyclobenzaprine 10 mg tablet 10 mg PO TID PRN (Reason: Muscle Spasm) Qty: 20 0RF No Action (DME) blood-glucose meter [True Metrix Glucose Meter] Misc See Rx Instructions .Route Qty: 1 0RF Rx Instructions: As directed (DME) True Metrix Glucose Test Strip Strip See Rx Instructions .Route Qty: 150 8RF Rx Instructions: 4 times daily metformin 1,000 mg tablet 1,000 mg PO BID Qty: 180 2RF levothyroxine 137 mcg tablet 137 mcg PO DAILY Qty: 90 3RF PNV 288-bzap-ienlpr-dha 90 mg iron- 1 mg-200 mg capsule 1 cap PO DAILY diltiazem HCl [Cardizem CD] 120 mg capsule,extended release 24hr 120 mg PO DAILY Qty: 30 12RF ibuprofen 800 mg tablet 800 mg PO Q8H PRN (Reason: pain) Qty: 30 0RF oxycodone-acetaminophen [Percocet] 5-325 mg tablet 1 tab PO Q4H PRN (Reason: pain) 7 Days Qty: 30 0RF Rx Instructions: 1-2 tabs q 4 hrs as needed for pain (DME) pen needle, diabetic [BD Ultra-Fine Lian Pen Needle] 32 gauge x 5/32 needle See Rx Instructions .ROUTE .MEDSUPPLY Qty: 50 4RF Rx Instructions: daily hydrochlorothiazide 25 mg tablet 25 mg PO QAM Qty: 90 4RF Primary Care Provider: Elizabeth Saeed NP Referrals: Elizabeth Saeed NP, TRUST VAULT CLERK-C [Primary Care Provider] - 1 Week if not improving Activity Restrictions/Additional Instructions: Follow-up with your PCP and return for any worsening of your symptoms. Print Language: Portuguese Disposition Disposition: Home, Self Care Discharge Date/Time: 07/21/23 16:54
[2023-07-21 16:52] VITALS: BP 161/74; PULSE 89; RESP 18; TEMP 36.6; O2SAT 99
== END 2023-07-21 16:54 | disposition home or self-care (01) ==
PROVIDERS: Emergency Provider Emergency Medicine; PCP Nurse Practitioner; Visit Provider Emergency Medicine
DX: M54.42 Lumbago with sciatica, left side (principal); I10 Essential (primary) hypertension; R60.0 Localized edema; Z79.1 Long term (current) use of non-steroidal anti-inflammatories (NSAID); Z79.899 Other long term (current) drug therapy
CPT/HCPCS: 93971; 99282

== ENCOUNTER → 2024-01-31 | Outpatient (CLI) | payer OTHER, SELFPAY ==
[2024-01-31 21:25] LABS: Absolute Lymphocyte Count 3.67 X10^3/uL (0.83-4.51); Absolute Neutrophil Count 4.1 X10^3/uL (2.0-7.7); Basophil# 0.05 X10^3/uL; Basophil% 0.6 % (0-1); Eosinophil# 0.18 X10^3/uL; Eosinophils% 2.1 % (0-5); Hematocrit 39.1 % (37-47); Hemoglobin 12.9 g/dL (12.0-15.0); Lymphocyte # 3.67 X10^3/ul (0.83-4.51); Lymphocyte % 43.5 % (19-41); Mean Corpuscular Hgb 27.8 pg (27.0-32.0); Mean Corpuscular Volume 84.3 fL (81-99); Mean Platelet Vol. 9.5 fl (6.2-12.0); Monocyte# 0.41 X10^3/uL; Monocyte% 4.9 % (0-10); NRBC Flagged by Analyzer 0 % (0-5); Neutrophil # 4.08 X10^3/uL (2.7-7.7); Neutrophil % 48.3 % (47-70); POSITIVE MORPHOLOGY YES; Platelet Count 427 K/mm3 (150-450); RBC Distribution Width CV 14.6 % (11.6-14.6); RBC Distribution Width SD 44.9 fl (35.1-43.9); Red Blood Count 4.64 M/mm3 (4.2-5.4); White Blood Count 8.4 K/mm3 (4.4-11.0)
[2024-01-31 21:27] LABS: Differential Indicated SCAN CRITERIA MET
[2024-01-31 21:52] LABS: ALB/GLOB Ratio 0.9 RATIO (0.9-2.4); AST(SGOT) 13 U/L (15-37); Alanine Aminotransfer ALT/SGPT 27 U/L (13-56); Albumin, Serum 3.5 g/dL (3.2-5.0); Alkaline Phosphatase 110 U/L (45-117); Anion Gap 5 (5-15); BUN 13 mg/dL (7-18); BUN/Creat Ratio 17.8 RATIO (10-20); Chloride 102 mmol/L (98-107); Cholesterol 139 mg/dL (200); Creatinine, Serum 0.73 mg/dL (0.55-1.02); EST Glomerular Filtration Rate 94 mL/min (>60); Est Glom Filt Rate - Afr Amer 114 mL/min (>60); Globulin 4.1 g/dL (2.2-4.2); Glucose 119 mg/dL (74-106); High Density Lipoprotein 37 mg/dL; Potassium 3.4 mmol/L (3.5-5.1); Protein, Total 7.6 g/dL (6.4-8.2); Sodium Level 136 mmol/L (136-145); Thyroid Stim Hormone (TSH) 0.623 uIU/mL (0.358-3.740); Triglycerides 208 mg/dL; Very Low Density Lipoprotein 42 mg/dL (5-40)
[2024-01-31 21:58] LABS: Hemoglobin A1c 5.5 % (3.8-5.6)
[2024-01-31 22:03] LABS: Differential Comment SCANNED
== END | disposition home or self-care (01) ==
LOC: LAB.FUTURE 20:57 → LABSPEC 20:59
PROVIDERS: PCP Nurse Practitioner; Referring Provider Nurse Practitioner; Visit Provider Nurse Practitioner
DX: R73.9 Hyperglycemia, unspecified (principal); I10 Essential (primary) hypertension; E03.9 Hypothyroidism, unspecified; E78.1 Pure hyperglyceridemia
CPT/HCPCS: 80053; 80061; 83036; 84443; 85025

== ENCOUNTER → 2024-12-13 | Outpatient (CLI) | payer OTHER, SELFPAY | END | disposition home or self-care (01) | LOC: OPBI 10:16 | PROVIDERS: PCP Nurse Practitioner; Referring Provider Obstetrics & Gynecology; Visit Provider Obstetrics & Gynecology | DX: Z12.31 Encounter for screening mammogram for malignant neoplasm of breast (principal) | CPT/HCPCS: 77063; 77067 ==

== ENCOUNTER → 2025-01-31 | Outpatient (CLI) | payer OTHER, SELFPAY ==
--- OUTSIDE RECORDS SUMMARY | 2025-01-31 22:42 | XMS RPT_ITS | CCD ---
Author Organization [facility] Care Team Providers Care Director Cardiology Name Role Phone RAMANAVARAPU, SUNSHINE Unavailable Unavailabl e ZARCO, NEMESIO Unavailable Unavailable RAMANAVARAPU, SUNSHINE Unavailable Unavailabl e ZARCO, NEMESIO Unavailable Unavailable RAMANAVARAPU, SUNSHINE Unavailable Unavailabl e ZARCO, NEMESIO Unavailable Unavailable RAMANAVARAPU, SUNSHINE Unavailable Unavailabl e ZARCO, NEMESIO Unavailable Unavailable Zarco COBOL DEVELOPER, COBOL DEVELOPER-C Nemesio Primary Care Provider Haroldo COBOL DEVELOPER, COBOL DEVELOPER-C Nemesio Referring Provider Dr. Mary Lou Pa Attending Provider Haroldo [employer], Nemesio L Primary Care Provide r Mary Lou Kamara DO R Unavailable Haroldo COBOL DEVELOPER, COBOL DEVELOPER-C Nemesio Primary Care Provider Haroldo COBOL DEVELOPER, COBOL DEVELOPER-C Neemsio Referring Provider Dr. Mary Lou Pa Attending Provider ZAYDA Soares Attending Provider Dr. Dimas Reyez Attending Provider Dr. Quincy Wang Attending Provider Jason MCGEE, MERCEDESC Ariana Attending Provider Haroldo COBOL DEVELOPER, COBOL DEVELOPER-C Nemesio Primary Care Provider Haroldo COBOL DEVELOPER, COBOL DEVELOPER-C Nemesio Referring Provider [phone] ZAYDA Soares Attending Provider Dr. Mary Lou aP Attending Provider Dr. She Maldonado Attending Provider [phone] Haroldo COBOL DEVELOPER, COBOL DEVELOPER-C Nemesio Primary Care Provider Haroldo COBOL DEVELOPER, COBOL DEVELOPER-C Nemesio Referring Provider Dr. Dimas Reyez Attending Provider [phone] ZARCO, NEMESIO L Primary Care Unavailable JAYLEN GRACIA Attending Unavailable JAYLEN GRACIA Referring Unavailable ZARCO, NEMESIO L Primary Care Unavailable MARY LOU KAMARA Referring Unavailab le SALVATORE HUYNH Attending Unavailable HAROLDO, NEMESIO L Primary Care Unavailable MARY LOU KAMARA Referring Unavailab le JAYLEN GRACIA Attending Unavailable ZARCO, NEMESIO L Primary Care Unavailable MARY LOU KAMARA Referring Unavailab QIANA Chapman Attending Unavailable MARY LOU KAMARA Attending Unavailab brenda ZARCO, NEMESIO L Primary Care Unavailable MARY LOU KAMARA Referring Unavailab le ZARCO, NEMESIO L Primary Care Unavailable ARIANA SOARES Referring Unavailable SALVATORE HUYNH Attending Unavailable GUS KRAUSE Attending Unavailable HAROLDO, NEMESIO L Primary Care Unavailable SALVATORE HUYNH Referring Unavailable SHE MALDONADO Attending UnavailMARY LOU Copeland Referring Unavailab le ZARCO, NEMESIO L Primary Care Unavailable AYAH ANGELES Attending Unavailable MARY LOU KAMARA Referring Unavailab le ZARCO, NEMESIO L Primary Care Unavailable ZARCO, NEMESIO L Primary Care Unavailable JAYLEN GRACIA Referring Unavailable YASMANY PAINTING Attending Unavailable Mary Lou Pa Referring UnavailMary Lou Rasmussen Attending Unavailramirez Zarco COBOL DEVELOPER, Nemesio Primary Care Unavailable Haroldo COBOL DEVELOPER, Nemesio Referring Unavailable Haroldo COBOL DEVELOPER, Nemesio Attending Unavailable Haroldo COBOL DEVELOPER, Nemesio Primary Care Unavailable Zarco COBOL DEVELOPER, Nemesio Primary Care Unavailable Mary Lou Pa Attending Unavailramirez Zarco COBOL DEVELOPER, Nemesio Referring Unavailable Medications Current Medications Medication Drug Class(es) Dates Sig (Normalized) Sig (Original) Blood Glucose Monitoring Suppl (ONE TOUCH ULTRA 2) w/Device KIT (1 source) Start: 4 Blood Glucose Monitoring Suppl (ONE TOUCH ULTRA 2) w/Device KIT See Admin Instructions 02/23/2023 Active Blood-Glucose Meter (True Metrix Glucose Meter) misc (6 sources) Start: 4 Blood-Glucose Meter (True Metrix Glucose Meter) misc Active 0 .Route February 23, 2023 1:00am As directed hydroCHLOROthiazide 25 mg oral tablet (14 sources) Thiazide Diuretic Start: 3 End: 4 take 25 mg by mouth once daily in the morning Hydrochlorothiazide Active 25 MG PO EVERY MORNING April 12, 2023 2:05pm 3 ml insulin isophane, human 100 unt/ml pen injector (19 sources) Start: Insulin Nph Isoph U-100 Human (Humulin N Nph Insulin Kwikpen) 100 unit/mL (3 mL) insulin pen Active 50 UNIT SC AT BEDTIME March 15, 2023 4:05pm Start: 03-06-2023 NOVOLIN N FLEX PEN 100 UNIT/ML SUPN Taking 70 units hs 03/06/2023 Active Start: 03-06-2023 End: 03-15-2023 Insulin Nph Isoph U-100 Berta n (Novolin N Flexpen) 100 unit/mL (3 mL) insulin pen Discontinued 30 UNIT SC EVERY EVENING March 06, 2023 1:00am March 15, 2023 4:06pm Start: 03-03-2023 End: 03-15-2023 Insulin Nph Isoph U-100 Berta n (Humulin N Nph Insulin Kwikpen) 100 unit/mL (3 mL) insulin pen Discontinued 25 UNIT SC AT BEDTIME March 03, 2023 1:00am March 15, 2023 4:08pm levothyroxine sodium 0.137 mg oral tablet (20 sources) l-Thyroxine Start: 02-23-2023 take 137 ug by mouth once daily Levothyroxine Active 137 MCG PO DAILY February 23, 2023 1:00am Start: 12-04-2017 End: 02-23-2023 take 112 ug by mouth once daily Levothyroxine Discontinued 112 MCG PO DAILY January 12, 2022 9:58am January 17, 2023 5:16pm metFORMIN hydrochloride 1000 mg oral tablet (20 sources) Biguanide Start: 02-23-2023 take 1000 mg by mouth twice daily Metformin Active 1000 MG PO TWICE A DAY 180 February 23, 2023 1:00am Start: 01-06-2022 End: 03-15-2023 take 500 mg by mouth once daily Metformin Discontinued 500 MG PO DAILY January 04, 2023 6:01pm March 15, 2023 4:07pm Start: 12-04-2017 End: 01-06-2022 take 500 mg by mouth twice daily Metformin Discontinued 500 MG PO TWICE A DAY 180 January 05, 2021 5:36pm January 06, 2022 5:31pm Pnv 927-Iafj-Jvxoij-Dha (6 sources) Start: 03-15-2023 take 1 capsule by mouth once daily Pnv 520-Omlg-Lvaooz-Dha Active 1 CAP PO DAILY March 15, 2023 1:00am MV-Min-Fe Fum-FA-DHA ( 1 PO) (1 source) MV-Min- Fe Fum-FA-DHA ( 1 PO) Take by mouth Active Completed/Discontinued Medications Medication Drug Class(es) Dates Sig (Normalized) Sig (Original) amoxicillin 875 mg oral tablet (18 sources) Penicillin-class Antibacterial Start: 08-19-2021 End: 01-06-2022 take 875 mg by mouth twice daily Amoxicillin Discontinued 875 MG PO TWICE A DAY August 19, 2021 4:51pm January 06, 2022 5:30pm Start: 12-03-2018 End: 10-31-2019 take 875 mg by mouth twice daily Amoxicillin Discontinued 875 MG PO TWICE A DAY December 03, 2018 12:00am October 31, 2019 6:34pm cholecalciferol 0.25 mg oral capsule (9 sources) Vitamin D Start: 01-12-2021 End: 01-17-2023 take 250 ug by mouth once daily Cholecalciferol (Vitamin D3) Discontinued 250 MCG PO DAILY January 12, 2021 1:00am January 17, 2023 5:18pm 24 hr dilTIAZem hydrochloride 120 mg extended release oral capsule (20 sources) Calcium Channel Gregorio Start: 12-04-2017 End: 01-04-2023 take 1 capsule by mouth once daily, then take 1 capsule by mouth every twenty-four hours Diltiazem Hcl (Cardizem Cd) 120 mg capsule,extended release 24hr Discontinued 120 MG PO DAILY January 06, 2022 5:38pm January 04, 2023 6:01pm lisinopril 20 mg oral tablet (20 sources) Angiotensin Converting Enzyme Inhibitor Start: 12-04-2017 End: 01-17-2023 take 20 mg by mouth once daily Lisinopril Discontinued 20 MG PO DAILY January 24, 2020 8:08pm January 05, 2021 5:37pm ofloxacin 3 mg/ml otic solution (9 sources) Quinolone Antimicrobial Start: 10-31-2019 End: 11-07-2019 Ofloxacin Discontinued 10 DRP OTIC DAILY 10 October 31, 2019 12:00am November 07, 2019 12:02am Pnv No.560-Pz-Hc7-Dha-Ep a-Fish (7 sources) Start: 01-18-2023 End: 03-15-2023 Pnv No.171-Ng-Bx1-Dha-Ep a-Fish Discontinued TABLET PO January 18, 2023 1:00am March 15, 2023 4:07pm Start: 01-18-2023 Pnv No.153-Fa- Nk7-Lkp-Ste-Fish Active TABLET PO January 18, 2023 12:00am microencapsulated potassium chloride 20 meq extended release oral tablet (7 sources) Start: 01-25-2023 End: 01-28-2023 take 20 mEq by mouth twice daily Potassium Chloride Discontinued 20 MEQ PO TWICE A DAY 6 January 25, 2023 1:00am January 28, 2023 1:24am predniSONE 10 mg oral tablet (18 sources) Start: 08-19-2021 End: 08-24-2021 take 20 mg by mouth twice daily Prednisone Discontinued 20 MG PO TWICE A DAY 20 August 19, 2021 12:00am August 24, 2021 12:03am Start: 10-31-2019 End: 01-03-2020 take 40 mg by mouth once daily Prednisone Discontinued 40 MG PO DAILY October 31, 2019 12:00am January 03, 2020 5:59pm spironolactone 50 mg oral tablet (20 sources) Aldosterone Antagonist Start: 12-04-2017 End: 01-17-2023 take 1 tablet by mouth once daily Spironolactone (Aldactone) 50 mg tablet Discontinued 50 MG PO DAILY January 04, 2023 6:01pm January 17, 2023 5:18pm Problems Active Problems Problem Classification Problem Date Documented Date Episodic/Chronic Cardiac and circulatory congenital anomalies (20 sources) Single umbilical artery; Translations: [Congenital absence and hypoplasia of umbilical artery] 04-04-2023 Chronic Cardiac dysrhythmias (20 sources) Tachycardia; Translations: [Tachycardia, unspecified] 12-04-2017 Episodic Diabetes or abnormal glucose tolerance complicating ; childbirth; or the puerperium (20 sources) and type 2 diabetes mellitus; Translations: [Pre-existing type 2 diabetes mellitus, in , first trimester] Onset: 03-13-2023 01-25-2023 Chronic Disorders of lipid metabolism (20 sources) Hypertriglyceridemia; Translations: [Pure hyperglyceridemia] 01-04-2023 Chronic Essential hypertension (20 sources) Hypertensive disorder; Translations: [Essential (primary) hypertension] 12-03-2018 Chronic Fluid and electrolyte disorders (20 sources) Hypokalemia; Translations: [Hypokalemia] 01-25-2023 Episodic Hypertension complicating ; childbirth and the puerperium (1 source) Benign essential hypertension complicating AND/OR reason for care during ; Translations: [Pre-existing essential hypertension complicating , unspecified trimester] Onset: 03-13-2023 03-20-2023 Chronic Lymphadenitis (9 sources) Anterior auricular lymphadenopathy; Translations: [Localized enlarged lymph nodes] 10-31-2019 Episodic Other complications of (7 sources) High risk ; Translations: [Supervision of high risk , unspecified, unspecified trimester] 01-18-2023 Episodic Other complications of (20 sources) Supervision of high risk , unspecified, unspecified trimester; Translations: [Supervision of unspecified high-risk ] 01-24-2023 Episodic Other complications of (1 source) Hypothyroidism in ; Translations: [Endocrine, nutritional and metabolic diseases complicating , unspecified trimester] Onset: 03-13-2023 03-20-2023 Episodic Other complications of (6 sources) Elderly primigravida; Translations: [Supervision of elderly primigravida, unspecified trimester] 02-23-2023 Episodic Other complications of (20 sources) Supervision of elderly primigravida, unspecified trimester; Translations: [Elderly primigravida, unspecified as to episode of care or not applicable] 02-23-2023 Episodic Other ear and sense organ disorders (9 sources) Otitis externa; Translations: [Unspecified otitis externa, left ear] 10-31-2019 Chronic Other endocrine disorders (9 sources) Polycystic ovary; Translations: [Polycystic ovarian syndrome] 12-04-2017 Chronic Other endocrine disorders (1 source) Polycystic ovary syndrome; Translations: [Polycystic ovarian syndrome] Onset: 03-13-2023 03-13-2023 Chronic Other nervous system disorders (5 sources) Pain of skin; Translations: [Other disturbances of skin sensation] 06-09-2023 Episodic Other nutritional; endocrine; and metabolic disorders (7 sources) Body mass index 40+ - severely obese; Translations: [Morbid (severe) obesity due to excess calories] 01-24-2023 Chronic Other nutritional; endocrine; and metabolic disorders (20 sources) Morbid (severe) obesity due to excess calories; Translations: [Morbid obesity] 01-24-2023 Chronic Other nutritional; endocrine; and metabolic disorders (1 source) Obesity; Translations: [Obesity, unspecified] Onset: 03-13-2023 03-13-2023 Chronic Other and delivery including normal (20 sources) Intrauterine ; Translations: [Encounter for supervision of normal , unspecified, unspecified trimester] 01-04-2023 Episodic Other screening for suspected conditions (not mental disorders or infectious disease) (2 sources) Patient encounter status; Translations: [Encounter for screening for malformations] Onset: 12-21-2024 04-10-2023 Episodic Other skin disorders (5 sources) Multiple skin tags; Translations: [Other hypertrophic disorders of the skin] 06-08-2023 Episodic Otitis media and related conditions (9 sources) Otitis media; Translations: [Otitis media, unspecified, left ear] 12-03-2018 Episodic Residual codes; unclassified (7 sources) Family history of breast cancer; Translations: [Family history of malignant neoplasm of breast] 01-18-2023 Episodic Residual codes; unclassified (7 sources) FH: Congenital heart disease; Translations: [Family history of other congenital malformations, deformations and chromosomal abnormalities] 01-18-2023 Episodic Residual codes; unclassified (20 sources) Family history of malignant neoplasm of breast; Translations: [Family history of malignant neoplasm of breast] 01-24-2023 Episodic Residual codes; unclassified (20 sources) Family history of other congenital malformations, deformations and chromosomal abnormalities; Translations: [Family history of congenital anomalies] 01-24-2023 Episodic Residual codes; unclassified (2 sources) Family history of congenital anomaly of cardiovascular system; Translations: [Family history of other congenital malformations, deformations and chromosomal abnormalities] Onset: 03-20-2023 04-10-2023 Episodic Thyroid disorders (20 sources) Hypothyroidism; Translations: [Hypothyroidism, unspecified] 01-05-2021 Chronic Past or Other Problems Problem Classification Problem Date Documented Da te Episodic/Chronic Diabetes mellitus without complication (1 source) Hyperglycemia, unspecified; Translations: [Hyperglycemia, unspecified] Onset: 03-03-2024 Episodic Results Test Name Value Interpretation Reference Range Facility Client Services Specialist Office Visit Reporton 12-13-2024 Client Services Specialist Office Visit Report [facility] [address], [address] [place] [address] OFFICE VISIT Date of Service: 12/13/24 MR#: [id number] Acct: [id number] Name: MONICA STRANGE Rep #: [id number] : 1985 Provider: Dr. 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: No Is patient in pain?: No Allergies No Known Allergies Allergy (Verified 12/13/24 09:10) Medications ???Medication ???Instructions ???Recorded ???Confirmed ???Type multivitamin 1 tab PO DAILY 09/05/23 12/13/24 H istory diltiazem HCl 90 mg 90 mg PO BID #180 caps 01/31/24 Rx capsule,extended release 12 hr hydrochlorothiazide 25 mg tablet 25 mg PO QAM BP #90 tabs 01/31/24 12/13/24 Rx levothyroxine 137 mcg tablet 137 mcg PO DAILY hypothyroidism 12/13/24 Rx #90 tabs prednisone 20 mg tablet 40 mg (2 x 20 mg) PO DAILY #20 tab s 05/10/24 12/13/24 Rx metformin 1,000 mg tablet 1,000 mg PO BID GDM #180 tabs 12/13/24 Rx Is last menstrual period known: Yes Last Menstrual Period: 11/22/24 Post menopausal: No Patient : No : No PFSH Medical History Hypertriglyceridemia Skin pain Skin tags, multiple acquired FH: breast cancer FH: congenital heart problem Supervision of high-risk Breech presentation 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 trimester Hypokalemia Preauricular adenopathy PCOS (polycystic ovarian syndrome) Tachycardia Hypothyroidism Hypertension Surgical History Status post section History of surgery Milmine teeth extracted Family History Grandmother Breast cancer, Onset Age: 60 Maternal Aunt Breast cancer, Onset Age: 60 Maternal Other Diabetes Hypertension Social History adopted: No household members: spouse current occupational status: employed 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 Date Name GA/Weeks Outcome Route Bth Weight Infant Gen Labor Lgth Anesthesia Del Locatn Provider FOB 07/14/23 Honorio 39 live - full term 6lbs 9oz Male spinal [facility] Josefina Fritz Delivery Date: 07/14/23 Last Updated by: Libby Simeon Chronic Hypertention, Type 2GDM HPI Encounter for routine gynecological examination Details: The patient is a 39-year-old female with a history of hypothyroidism, hypertension, and irregular periods presenting for a routine gynecological visit. Menstrual Irregularities - Reports regular menstrual cycles. - Attributes regularity to metformin use. - Currently using condoms for contraception. - Considering an IUD for contraception. Past Screenings - Pap Smear (2022): Negative for malignancy - HPV Test (2022): Negative - Mammogram: Scheduled for today Medications: - Metformin - Levothyroxine - Hydrochlorothiazide - Diltiazem 90 mg twice daily (previously 120 mg) Last PAP: 2022; normal. HPV neg History of abnormal PAP: no Last mammogram: done today History of abnormal mammogram: n/a Colon cancer screening: age 44 Other preventative health care screenings: WADE Maldonado; PCP Female Reproductive History Last Menstrual Period: 11/22/24 Cycle Length: 21-35 Bleeding Duration: 5 Questions: metrorrhagia: No, sexually active: Yes, dyspareunia: No and PCB: No Menopausal Symptoms: No hot flashes, No night (more content not included)... Normal [facility] SCRN MAMM (CAD)W/MARION BILATo n 12-13-2024 SCRN MAMM (CAD)W/MARION BILAT [facility] [address] [place], [place] [id number] SCRN MAMM (CAD)W/MARION BILAT MR#: [id number] Acct: [id number] Name: MONICA STRANGE Rep #: [id number] : 1985 F 39 From: Shahla Villatoro i, MD PCP: WADE Maldonado Status: REG CLI Study: SCRN MAMM (CAD)W/MARION BILAT Date of Exam: 11/21 06/14 Exam# [id number] Ordering Dr: Mary Lou Pa DO EXAM: SCRN MAMM (CAD)W/MARION BILAT DATE: 12/13/2024 CLINICAL HISTORY: F, Age 39 y/o , SCREEN FOR BREAST CANCER TECHNIQUE: Procedure Code: [id number] Modality: MG Procedure: SCRN MAMM (CAD)W/MARION BILAT COMPARISON: Baseline exam FINDINGS: TISSUE DENSITY: The breasts are heterogeneously dense, which may obscure small masses. Bilateral Breast Mammographic Findings: No suspicious masses, calcifications or other abnormalities are identified. BI/SCRN MAMM (CAD)W/MARION BILAT IMPRESSION: No mammographic evidence of malignancy in either breast. OVERALL FINAL ASSESSMENT BI-RADS 1: NEGATIVE. RECOMMENDATION: Routine annual follow-up in 1 Year Additional Recommendation none A letter with findings and recommendations will be mailed to the patient. Reading [facility] CC: WADE Zarco; Dr. Mary Lou Pa DO Spirits Model: Signed Normal [facility] CBC W/Diff, Automatedon 12- SMEAR COMMENT SCANNED Normal [facility] Comment on above: Performed By: #### L 501.9520, L500.4100, L500.4050, L501.9985, L100.0100 #### [facility] [address] [place], [address] Comprehensive Metabolic Prof ilon 01-31-2024 Albumin [Mass/Vol] 3.5 g/dL Normal 3.2-5.0 [facility] Comment on above: Performed By: #### L 501.9520, L500.4100, L500.4050, L501.9985, L100.0100 #### [facility] [address] [place], [address] Albumin/Globulin [Mass ratio] 0.9 {ratio} Normal 0.9-2.4 [facility] Comment on above: Performed By: #### L 501.9520, L500.4100, L500.4050, L501.9985, L100.0100 #### [facility] [address] [place], [address] ALK P 110 U/L Normal 45-117 [facility] Comment on above: Performed By: #### L 501.9520, L500.4100, L500.4050, L501.9985, L100.0100 #### [facility] [address] [place], [address] ALT [Catalytic activity/Vol] 27 U/L Normal 13-56 [facility] Comment on above: Performed By: #### L 501.9520, L500.4100, L500.4050, L501.9985, L100.0100 #### [facility] [address] [place], [address] AST [Catalytic activity/Vol] 13 U/L Low 15-37 [facility] Comment on above: Performed By: #### L 501.9520, L500.4100, L500.4050, L501.9985, L100.0100 #### [facility] [address] [place], [address] Bilirubin [Mass/Vol] 0.20 mg/dL Normal 0.20-1.00 [facility] Comment on above: Result Comment: For patients on eltrombopag therapy, use of Dimension [place] TBIL is not recommended. Performed By: #### L 501.9520, L500.4100, L500.4050, L501.9985, L100.0100 #### [facility] [address] [place], [address] BUN/CRE 17.8 RATIO Normal 10-20 [facility] Comment on above: Performed By: #### L 501.9520, L500.4100, L500.4050, L501.9985, L100.0100 #### [facility] [address] [place], [address] CA,Total 9.0 mg/dL Normal 8.5-10.1 [facility] Comment on above: Performed By: #### L 501.9520, L500.4100, L500.4050, L501.9985, L100.0100 #### [facility] [address] [place], [address] Chloride [Moles/Vol] 102 mmol/L Normal 98-107 [facility] Comment on above: Performed By: #### L 501.9520, L500.4100, L500.4050, L501.9985, L100.0100 #### [facility] [address] [place], [address] CO2 [Moles/Vol] 29.0 mmol/L Normal 21.0-32.0 [facility] Comment on above: Performed By: #### L 501.9520, L500.4100, L500.4050, L501.9985, L100.0100 #### [facility] [address] [place], [address] Creatinine [Mass/Vol] 0.73 mg/dL Normal 0.55-1.02 [facility] Comment on above: Result Comment: The validity of the calculated GFR GFRAA in patients over 70 years has not been determined. Clinical correlation is essential. Performed By: #### L 501.9520, L500.4100, L500.4050, L501.9985, L100.0100 #### [facility] [address] [place], [address] EST GFR - AA 114 mL/min Normal >60 [facility] Comment on above: Result Comment: Afri can Bahraini GFR Calc Performed By: #### L 501.9520, L500.4100, L500.4050, L501.9985, L100.0100 #### [facility] [address] [place], [address] GAP 5 Normal 5-15 [facility] Comment on above: Performed By: #### L 501.9520, L500.4100, L500.4050, L501.9985, L100.0100 #### [facility] [address] [place], [address] GFR/1.73 sq M.predicted among non-blacks MDRD (S/P/Bld) [Vol rate/Area] 94 mL/min/{1.73_m2} Normal >60 [facility] Comment on above: Result Comment: Non- GFR Calc Performed By: #### L 501.9520, L500.4100, L500.4050, L501.9985, L100.0100 #### [facility] [address] [place], [address] Globulin (S) [Mass/Vol] 4.1 g/dL Normal 2.2-4.2 [facility] Comment on above: Performed By: #### L 501.9520, L500.4100, L500.4050, L501.9985, L100.0100 #### [facility] [address] [place], [address] Glucose [Mass/Vol] 119 mg/dL High 74-106 [facility] Comment on above: Result Comment: Fast ing Glucose result from 100 to 125 mg/dL suggests IMPAIRED HOMEOSTASIS per A.D.A. criteria. Performed By: #### L 501.9520, L500.4100, L500.4050, L501.9985, L100.0100 #### [facility] [address] [place], [address] Potassium [Moles/Vol] 3.4 mmol/L Low 3.5-5.1 [facility] Comment on above: Performed By: #### L [id number], L500.4100, L500.4050, L501.9985, L100.0100 #### [facility] [address] [place], [address] Sodium [Moles/Vol] 136 mmol/L Normal 136-145 [facility] Comment on above: Performed By: #### L [id number], L500.4100, L500.4050, L501.9985, L100.0100 #### [facility] [address] [place], [address] T PROT 7.6 g/dL Normal 6.4-8.2 [facility] Comment on above: Performed By: #### L [id number], L500.4100, L500.4050, L501.9985, L100.0100 #### [facility] [address] [place], [address] Urea nitrogen [Mass/Vol] 13 mg/dL Normal 7-18 [facility] Comment on above: Performed By: #### L [id number], L500.4100, L500.4050, L501.9985, L100.0100 #### [facility] [address] [place], [address] Hemoglobin A1con 01-31-2024 HbA1c (Bld) [Mass fraction] 5.5 % Normal 3.8-5.6 [facility] Comment on above: Result Comment: Norm al < 5.7 % Prediabetic 5.7 - 6.4 % Diabetic >or= 6.5 % Please note range changes. Performed By: #### L 501.9520, L500.4100, L500.4050, L501.9985, L100.0100 #### [facility] [address] [place], [address] Lipid Profileon 01-31-2024 Cholesterol [Mass/Vol] 139 mg/dL Normal 200 [facility] Comment on above: Result Comment: <200 mg/dL Desirable 200-240 mg/dL Borderline >240 mg/dL High Risk Performed By: #### L 501.9520, L500.4100, L500.4050, L501.9985, L100.0100 #### [facility] [address] [place], [address] Cholesterol in HDL [Mass/Vol] 37 mg/dL Low [facility] Comment on above: Result Comment: The drugs N-Acetylcysteine and Metamizole may falsely depress this assay. Reference Range HDL <40 mg/dL Low HDL Cholesterol HDL >or= 60 mg/dL High HDL Cholesterol Performed By: #### L 501.9520, L500.4100, L500.4050, L501.9985, L100.0100 #### [facility] [address] [place], [address] Cholesterol in LDL [Mass/Vol] 60 mg/dL Normal 0-130 [facility] Comment on above: Performed By: #### L [id number], L500.4100, L500.4050, L501.9985, L100.0100 #### [facility] [address] [place], [address] Cholesterol in VLDL [Mass/Vol] 42 mg/dL High 5-40 [facility] Comment on above: Performed By: #### L 501.9520, L500.4100, L500.4050, L501.9985, L100.0100 #### [facility] [address] [place], [address] Triglyceride [Mass/Vol] 208 mg/dL High [facility] Comment on above: Result Comment: The drugs N-Acetylcysteine and Metamizole may falsely depress this assay. Serum Triglycerides Reference Interval Normal <150 mg/dL Borderline high 150 - 199 mg/dL High 200 - 499 mg/dL Very High > or = 500 mg/dL Performed By: #### L 501.9520, L500.4100, L500.4050, L501.9985, L100.0100 #### [facility] [address] [place], [place], [address] Thyroid Stim Hormone (TSH)on 01-31-2024 TSH 0.623 uIU/mL Normal 0.358-3.740 [facility] Comment on above: Performed By: #### L 501.9520, L500.4100, L500.4050, L501.9985, L100.0100 #### [facility] [address] [place], [address] Laboratory - Chemistry and C hemistry - challengeon 2023 Glucose Ql (U) Negative [facility] - Urinalysison Protein Ql (U) Negative [facility] Serum or plasma thyroid stim ulating hormone (TSH) measurement (units/volume)Ordered By: Mary Lou Hammond on 2023 TSH Qn 1.00 uIU/mL 0.358-3.74 [facility] - Chemistry and C hemistry - challengeon 06-19-2023 Glucose Ql (U) Negative [facility] - Urinalysison Protein Ql (U) Negative [facility] - Chemistry and C hemistry - challengeon 06-12-2023 Glucose Ql (U) Negative [facility] - Urinalysison Protein Ql (U) Negative [facility] - Chemistry and C hemistry - challengeon 06-05-2023 Glucose Ql (U) Negative [facility] - Urinalysison Protein Ql (U) Negative [facility] - Hematology and Cell countson 05-30-2023 HbA1c (Bld) [Mass fraction] 5.2 % 4.2-6.3 [facility] - Chemistry and C hemistry - challengeon 05-23-2023 Glucose Ql (U) Negative [facility] - Urinalysison Protein Ql (U) Negative [facility] Absolute lymphocyte countOrd ered By: Mary Lou Hammond on 05-03-2023 Lymphocytes Auto (Unsp spec) [#/Vol] 2.40 10*3/uL 0.83-4.51 [facility] Automated lymphocyte count a s percentage of total leukocytesOrdered By: Mary Lou Hammond on 05-03-2023 Lymphocytes/100 WBC Auto (Unsp spec) 17.8 % 19-41 [facility] Basophil percentageOrdered B y: Mary Lou Hammond on 05-03-2023 Basophils/100 WBC (Bld) 0.1 % 0-1 [facility] Bilirubin [Mass/Vol] 0.20 mg/dL 0.20-1.00 [facility] Comment on above: For patients on eltr ombopag therapy, use of Dimension [place] TBIL is not recommended. Chloride [Moles/Vol] 106 mmol/L 98-107 [facility] Eosinophils/100 WBC (Bld) 0.9 % 0-5 [facility] Glucose [Mass/Vol] 92 mg/dL 74-106 [facility] Hemoglobin (Bld) [Mass/Vol] 12.0 g/dL 12.0-15.0 [facility] Monocytes/100 WBC (Bld) 4.6 % 0-10 [facility] Neutrophils (Bld) [#/Vol] 10.2 10*3/uL 2.0-7.7 [facility] Neutrophils/100 WBC (Bld) 76.2 % 47-70 [facility] Potassium [Moles/Vol] 3.5 mmol/L 3.5-5.1 [facility] Protein [Mass/Vol] 7.6 g/dL 6.4-8.2 [facility] Sodium [Moles/Vol] 136 mmol/L 136-145 [facility] WBC (Bld) [#/Vol] 13.5 10*3/uL 4.4-11.0 [facility] Determination of erythrocyte mean corpuscular volume (MCV)Ordered By: Mary Lou Hammond on 05-03-2023 MCV (RBC) [Entitic vol] 86.4 fL 81-99 [facility] Erythrocyte distribution wid th ratioOrdered By: Mary Lou Hammond on 05-03-2023 Erythrocyte distribution width (RBC) [Ratio] 13.8 % 11.6-14.6 [facility] Erythrocyte distribution wid th standard deviationOrdered By: Mary Lou Hammond on 05-03-2023 Erythrocyte distribution width (RBC) [Entitic vol] 43.2 fL 35.1-43.9 [facility] HIV 1 and HIV-2 antibody ass ay with HIV-1 p24 antigen detectionOrdered By: Mary Lou Hammond on 05-03-2023 HIV 1+2 Ab+HIV1 p24 Ag IA Ql Non-Reactive Nonreactive [facility] Hematocrit Auto (Bld) [Volum e fraction]Ordered By: Mary Lou Hammond on 05-03-2023 Hematocrit (Bld) [Volume fraction] 36.7 % 37-47 [facility] Immature granulocytes/100 WB C Auto (Bld)Ordered By: Mary Lou Hammond on 05-03-2023 Immature granulocytes/100 WBC (Bld) 0.400 % 0.0-0.9 [facility] Comment on above: IG% - Immature Granu locytes (promyelocytes, myelocytes and metamyelocytes) > 1% indicates that a LEFT SHIFT is Present. Laboratory - Chemistry and C hemistry - challengeOrdered By: Mary Lou Hammond on 05-03-2023 Albumin/Globulin [Mass ratio] 0.6 {ratio} 0.9-2.4 [facility] ALP [Catalytic activity/Vol] 99 U/L 45-117 [facility] ALT [Catalytic activity/Vol] 18 U/L 13-56 [facility] CO2 [Moles/Vol] 21.0 mmol/L 21.0-32.0 [facility] Globulin (S) [Mass/Vol] 4.7 g/dL 2.2-4.2 [facility] Urea nitrogen/Creatinine [Mass ratio] 17.0 mg/mg 10-20 [facility] - Chemistry and C hemistry - challengeon 05-03-2023 Glucose Ql (U) Negative [facility] - Hematology and Cell countsOrdered By: Mary Lou Hammond on 05-03-2023 MCH (RBC) [Entitic mass] 28.2 pg 27.0-32.0 [facility] MCHC (RBC) [Mass/Vol] 32.7 g/dL 32-36 [facility] Nucleated RBC/100 WBC (Bld) [Ratio] 0 % 0-5 [facility] Platelet mean volume (Bld) [Entitic vol] 9.1 fL 6.2-12.0 [facility] Platelets (Bld) [#/Vol] 390 10*3/uL 150-450 [facility] - Urinalysison Protein Ql (U) Trace [facility] No Panel InformationOrdered By: Mary Lou Hammond on 05-03-2023 Estimated GFR (MDRD) Amer 132 mL/min >60 [facility] Comment on above: GFR Calc Estimated GFR (MDRD) Non-Af Amer 109 mL/min >60 [facility] Comment on above: Non- GFR Calc RBC Auto (Bld) [#/Vol]Ordere d By: Mary Lou Hammond on 05-03-2023 RBC (Bld) [#/Vol] 4.25 10*6/uL 4.2-5.4 [facility] Serum Treponema species anti body detectionOrdered By: Mary Lou Hammond on 05-03-2023 Treponema sp Ab Ql (S) Non-Reactive [facility] Serum or plasma calcium yohana urement (mass/volume)Ordered By: Mary Lou Hammond on 05-03-2023 Calcium [Mass/Vol] 10.0 mg/dL 8.5-10.1 [facility] Serum or plasma creatinine m easurement (mass/volume)Ordered By: Mary Lou Hammond on 05-03-2023 Creatinine [Mass/Vol] 0.65 mg/dL 0.55-1.02 [facility] Comment on above: The validity of the calculated GFR & GFRAA in patients over 70 years has not been determined. Clinical correlation is essential. Serum or plasma urea nitroge n measurement (mass/volume)Ordered By: Mary Lou Hammond on 05-03-2023 Urea nitrogen [Mass/Vol] 11 mg/dL 7-18 [facility] Thin prep Papanicolaou smear with manual screeningOrdered By: Mary Lou Hammond on 05-03-2023 Thin prep Papanicolaou smear with manual screening 2.9 g/dL 3.2-5.0 [facility] Thin prep Papanicolaou smear with manual screening 13 U/L 15-37 [facility] Thin prep Papanicolaou smear with manual screening 9 5-15 [facility] Progress Noteon 04-26-2023 [employer] Sample Authentication Interface Message Text New patient 04/26/2023 RE: Monica Strange : 1985 AGE: 37 y.o. [facility]#: [id number] Gestational Age: 29 Weeks Delivery Hospital: [facility] Reason for visit: Chief Complaint Patient presents with ECHO echo for maternal gestational diabetes. Mother had diabetes during her prior first as well. She is currently not on any medication it is diet controlled. Other indications:Maternal Gestational Diabetes Mellitius OB History 1 Para Term AB Living SAB IAB Ectopic Multiple Live Births Counseling and/or coordination of care (face to face time in the office/outpatient setting or floor/unit time in the hospital) was greater than 40 minutes which is more than 50% of the total time of 60 minutes spent on the encounter. In addition, the following items were performed before, during, and after this visit: Synthesis of current imaging findings. Results for orders placed or performed in visit on 04/26/23 Echo New Narrative [facility] [place] [address] [email or web address] Echocardiogram Report M-mode, complete 2D, complete spectral Doppler, and color Doppler PATIENT: Monica Strange STUDY DATE/TIME: Apr 26 2023 8:25AM HEIGHT: : 1985 WEIGHT: AGE: 37year(s) BSA/BMI: / GENDER: F BP: 130 / 86 LOCATION: [facility] REFERRING PHYSICIAN: Jaylen Gracia ORDERING PROVIDER: Jaylen Gracia READING PHYSICIAN: MADAY Chavez CHEMIST STEROIDS: Carlota Singleton RDCS SUMMARY: No significant congenital heart disease identified. 1. Structurally normal cardiac anatomy. 2. 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 3. Normal biventricular size and function. 4. No atrioventricular valve regurgitation. 5. Normal three vessel view. 6. Normally related great arteries. 7. : Normal three vessel view, main pulmonary artery 5.6 mm, aorta 4.3 mm and superior vena cava 3.2 mm. The aortic isthmus was 2.71 mm Z score -1.30 for gestational age. 8. Left aortic arch with left patent ductus arteriosus. 9. Normal systemic and pulmonary venous connections. 10. This study is limited in evaluating minor valve abnormalities, septal defects, partial anomalous pulmonary venous connection, and aortic arch abnormalities. 11. The above findings, including the limitations, were discussed with the patient. 12. It was difficult study due to maternal habitus. 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 REASON FOR EXAM: FAM HX CHD. 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 : - Maternal age: 38yr. - : 1. - Parity: 0. - Estimated delivery date: 07/28/2023. - Gestational age: 26wk. STUDY AND PROCEDURE DATA: The patient is . Procedure Description: New ([id number]) . Study status: Routine. Location: lab. Procedure: Transabdominal echocardiogram was performed for congenital heart disease evaluation. Patient status: Outpatient. Blood pressure: 130/86 FINDINGS: DESCRIPTION One fetus is present. Normal three vessel view, main pulmonary artery 5.6 mm, aorta 4.3 mm and superior vena cava 3.2 mm. The rhythm is sinus rhythm, with a heart rate of 141bpm. The position is vertex. Normal Doppler pattern of the ductus venosus, umbilical artery, and vein. 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 ANATOMIC RELATIONSHIPS - Normal viceral situs. Left sided stomach. Left sided cardiac apex (levocardia). Normally related great vessels. VEINS AND ATRIA Atrial septum - There is a patent foramen ovale. There is a [id number]-ajja shunt. Left atrium - The atrium is normal in size. Right atrium - The atrium is normal in size. Systemic veins - Inferior vena cava and superior vena cava seen entering normally into the right atrium. Pulmonary veins: There are at least 2 out of 4 pulmonary veins seen entering normally into the left atrium, with normal Doppler pattern. A-V CANAL Tricuspid valve - The valve is structurally normal. There is no regurgitation. - There is normal biphasic inflow spectral Doppler. Mitral valve - The valve is structurally normal. There is no regurgitation. - There is normal biphasic inflow spectral Doppler. VENTRICLES Right ventricle - The cavity size (more content not included)... 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 MATERNAL- MEDICINE CONSULT Referring/Requesting Provider: Ariana Soares CNM PCP: Nemesio Zarco, [facility] This is a telemedicine video visit requested by the patient/guardian that was performed with the patient's location at home and the provider's location at office. INDICATION FOR CONSULT: Type 2 DM, CHTN HISTORY OF PRESENT ILLNESS: Patient is a 37 y.o. at 21w0d who presents for consultation regarding Type 2 DM and CHTN. At her appointment it is also noted that her is also complicated by obesity (BMI 56), hypothyroidism on levothyroxine, low fraction on NIPT, and father of baby with history of congenital VSD requiring surgical repair. Regarding her Type 2 DM, she report she never had a diagnosis prior to . She states she was diagnosed early in around 12 weeks. Early A1C is 5.8 on 01/24 but patterning displayed elevated blood sugars and she was started on medications. She is currently taking Metformin 1000mg BID and NPH 56u at bedtime. She has not yet had nutrition consultation. She states she did receive paperwork on diet recommendations and has been trying to restrict her carbohydrates. Her DM is currently being managed by endocrinology, Dr. Reyez. She does not have a glucose log for review today, but states she is in almost daily contact with Endo and her glucose has been mostly in range as long as she restricts carbs. Regarding her chronic hypertension, she reports she was diagnosed around 2014. She was previously on Lisinopril prior to . Once she was switched by her PCP to Cardizem (diltiazem) 120mg and HCTZ 25mg daily. She reports when she stopped the Lisinopril her Bps were 170s-180s, but since on diltiazem and HCTZ she has been 130s/60-70s. She reports no associated complications. She also reports a normal echocardiogram in 2018 and she saw Cardiology yesterday in [place]. She states she had an EKG which was normal and is planning an echocardiogram. Records are not available for review. She states BP was also normal at that appointment. She is currently taking bASA 81mg daily for preeclampsia prevention. She also had NIPT with [facility] x 1 which returned low fraction early in . No further testing. She is obese with BMI of 56. She also reports that FOB was born with congenital cardiac disease: a VSD requiring surgical repair. She denies any other known genetic abnormalities. Finally, she also has hypothyroidism and takes levothyroxine 137mcg daily. Her last TSH was normal, 2.2. Today the patient denies any OB complaints. She denies abdominal pain,vaginal bleeding, preeclampsia symptoms, leakage of fluid and reports good movement. OB History Para Term AB Living 1 SAB IAB Ectopic Multiple Live Births # Outcome Date GA Lbr Fernando/2nd Weight Sex Delivery Anes PTL Lv 1 Current Past Medical History: Diagnosis Date Diabetes mellitus, type 2 Hypertension taking hctz Hypothyroidism levothyroxine Obesity PCOS (polycystic ovarian syndrome) Preauricular adenopathy Tachycardia Type 2 diabetes mellitus metformin 1000 bid Past Surgical History: Procedure Laterality Date WISDOM TOOTH EXTRACTION PERTINENT FAMILY HISTORY: Family History Problem Relation Age of Onset Cancer Maternal Grandmother 60 breast cancer Cancer Maternal Aunt 60 breast cancer MEDS: Current Outpatient Medications Medication Sig Dispense Refill Last Dispense Assistance Program Adherence Comment Blood Glucose Monitoring Suppl (ONE TOUCH ULTRA 2) w/Device KIT See Admin Instructions Unknown (patient-reported) . Refill history: . dilTIAZem (CARDIZEM CD) 120 MG CP24 capsule Take 1 Capsule (120 mg) by mouth daily Unknown (patient-reported) . Refill history: . SeisquareUCH ULTRA test strip use to check BLOOD SUGAR FOUR TIMES DAILY Unknown (patient-reported) . Refill history: . hydroCHLOROthiazide (HYDRODIURIL) 25 MG TABS tablet Take 1 Tablet (25 mg) by mouth daily Unknown (patient-reported) . Refill history: . NOVOLIN N FLEXPEN 100 UNIT/ML SUPN 56 units hs Unknown (patient-reported) . Refill history: . [facility] UNIFINE PENTIPS PLUS 32G X 4 MM MISC USE DIRECTED DAILY Unknown (patient-reported) . Refill history: . levothyroxine (SYNTHROID) 137 MCG tablet Take 1 Tablet (137 mcg) by mouth daily Unknown (patient-reported) . Refill history: . metFORMIN (GLUCOPHAGE) 1000 MG Take 1 Tablet (1,000 mg) by mouth 2 times daily Unknown (patient-reported) . Refill history: . potassium chloride SA (KLOR-CON M20) 20 MEQ CR tablet 1 Tablet (20 mEq) Unknown (patient-reported) . Refill history: . MV-Min-Fe Fum-FA-DHA ( 1 PO) Take by mouth Unknown (patient-reported) . Refill history: . ALLERGY: Not on File PHYSICAL EXAM: VITAL SIGNS: BP 130/62 Ht 170.2 cm Wt (!) 152 kg (335 lb) LMP 09/17/2022 BMI 52.47 kg/m Alert and oriented, (more content not included)... Normal [facility] - Chemistry and C hemistry - challengeon 03-07-2023 Glucose Ql (U) Negative [facility] - Urinalysison Protein Ql (U) Negative [facility] - Chemistry and C hemistry - challengeon 02-23-2023 Glucose Ql (U) Negative [facility] - Urinalysison Protein Ql (U) Negative [facility] - Chemistry and C hemistry - challengeon 02-07-2023 Glucose Ql (U) Negative [facility] - Urinalysison Protein Ql (U) Negative [facility] Absolute lymphocyte countOrd ered By: Mary Lou Hammond on 01-24-2023 Lymphocytes Auto (Unsp spec) [#/Vol] 2.87 10*3/uL 0.83-4.51 [facility] Basophil percentageOrdered B y: Mary Lou Hammond on 01-24-2023 Basophils/100 WBC (Bld) 0.3 % 0-1 [facility] Bilirubin [Mass/Vol] 0.10 mg/dL 0.20-1.00 [facility] Comment on above: For patients on eltr ombopag therapy, use of Dimension [place] TBIL is not recommended. Chloride [Moles/Vol] 104 mmol/L 98-107 [facility] Eosinophils/100 WBC (Bld) 0.9 % 0-5 [facility] Glucose [Mass/Vol] 95 mg/dL 74-106 [facility] Neutrophils (Bld) [#/Vol] 8.1 10*3/uL 2.0-7.7 [facility] Neutrophils/100 WBC (Bld) 68.4 % 47-70 [facility] Potassium [Moles/Vol] 3.1 mmol/L 3.5-5.1 [facility] Protein [Mass/Vol] 7.6 g/dL 6.4-8.2 [facility] Sodium [Moles/Vol] 135 mmol/L 136-145 [facility] WBC (Bld) [#/Vol] 11.8 10*3/uL 4.4-11.0 [facility] Blood erythrocytes count (nu mber/volume)Ordered By: Mary Lou Hammond on 01-24-2023 RBC (Bld) [#/Vol] 4.17 10*6/uL 4.2-5.4 [facility] Blood hemoglobin measurement (mass/volume)Ordered By: Mary Lou Hammond on 01-24-2023 Hemoglobin (Bld) [Mass/Vol] 12.4 g/dL 12.0-15.0 [facility] Blood lymphocytes/100 leukoc ytesOrdered By: Mary Lou Hammond on 01-24-2023 Lymphocytes/100 WBC (Bld) 24.3 % 19-41 [facility] Blood monocytes/100 leukocyt esOrdered By: Mary Lou Hammond on 01-24-2023 Monocytes/100 WBC (Bld) 5.7 % 0-10 [facility] Blood platelet mean volumeOr dered By: Mary Lou Hammond on 01-24-2023 Platelet mean volume (Bld) [Entitic vol] 9.2 fL 6.2-12.0 [facility] Cervical or vagninal specime n microscopic examination by cytology stain (reported asOrdered By: Mary Lou Hammond on 01-24-2023 Cytology report Cyto stain Doc (Cvx/Vag) Comment . [facility] Comment on above: The Pap smear is a s creening test designed to aid in thedetection of premalignant and malignant conditions of theuterine cervix. It is not a diagnostic procedure andshould not be used as the sole means of detecting cervicalcancer. Both false-positive and false-negative reports dooccur. Chlamydia trachomatis rRNA d etection by probe and target amplification methodOrdered By: Mary Lou Hammond on 01-24-2023 C. trachomatis rRNA BAMBI+probe Ql (Unsp spec) Negative Negative [facility] Culture, urineOrdered By: Estevan Hammond on 01-24-2023 Bacteria identified Cx Nom (U) Culture exhibits no growth. [facility] Bacteria identified Cx Nom (U) Culture exhibits no growth. [facility] Detection in cervical specim en of any of human papilloma virus (HPV) 16, 18, 31, 33,Ordered By: Mary Lou Hammond on 01-24-2023 HPV 16+18+31+33+35+39+45+5 1+52+56+58+59+66+68 DNA Probe+sig amp Ql (Cvx) Negative Negative [facility] Comment on above: This nucleic acid am plification test detects fourteen high- risk HPV types (16,18,31,33,35,39,45,51,52,56,58,59,66,68)without differentiation. Determination of erythrocyte mean corpuscular volume (MCV)Ordered By: Mary Lou Hammond on 01-24-2023 MCV (RBC) [Entitic vol] 90.6 fL 81-99 [facility] HIV 1 and HIV-2 antibody ass ay with HIV-1 p24 antigen detectionOrdered By: Mary Lou Hammond on 01-24-2023 HIV 1+2 Ab+HIV1 p24 Ag IA Ql Non-Reactive Nonreactive [facility] Hematocrit Auto (Bld) [Volum e fraction]Ordered By: Mary Lou Hammond on 01-24-2023 Hematocrit (Bld) [Volume fraction] 37.8 % 37-47 [facility] Laboratory - Chemistry and C hemistry - challengeOrdered By: Mary Lou Hammond on 01-24-2023 ALP [Catalytic activity/Vol] 93 U/L 45-117 [facility] ALT [Catalytic activity/Vol] 32 U/L 13-56 [facility] CO2 [Moles/Vol] 23.0 mmol/L 21.0-32.0 [facility] Free T4 [Mass/Vol] 1.30 ng/dL 0.76-1.46 [facility] Globulin (S) [Mass/Vol] 4.5 g/dL 2.2-4.2 [facility] Urea nitrogen/Creatinine [Mass ratio] 13.2 mg/mg 10-20 [facility] Laboratory - CytologyOrdered By: Mary Lou Hammond on 01-24-2023 Clinical Systems Analyst Cyto stain Nom (Cvx/Vag) [ID] Comment . [facility] Comment on above: Tigist Underwood, Cytotec hnologist (ASCP) Laboratory - Hematology and Cell countsOrdered By: Mary Lou Hammond on 01-24-2023 Erythrocyte distribution width (RBC) [Entitic vol] 41.7 fL 35.1-43.9 [facility] Erythrocyte distribution width (RBC) [Ratio] 12.6 % 11.6-14.6 [facility] Immature granulocytes/100 WBC (Bld) 0.400 % 0.0-0.9 [facility] Comment on above: IG% - Immature Granu locytes (promyelocytes, myelocytes and metamyelocytes) > 1% indicates that a LEFT SHIFT is Present. MCH (RBC) [Entitic mass] 29.7 pg 27.0-32.0 [facility] Nucleated RBC/100 WBC (Bld) [Ratio] 0 % 0-5 [facility] Laboratory - Microbiology an d Antimicrobial susceptibilityOrdered By: Mary Lou Hammond on 01-24-2023 N. gonorrhoeae DNA BAMBI+probe Ql (Unsp spec) Negative Negative [facility] Comment on above: Performed at: [address] [id number] Director: Laurence Joseph MD, Phone: [phone] Laboratory - Miscellaneous t estsOrdered By: Mary Lou Hammond on 01-24-2023 Service comment (Unsp spec) [Interp] Comment . [facility] Comment on above: This liquid based Th inPrep(R) pap test was screened withthe use of an image guided system. Service comment (Unsp spec) [Interp] . . [facility] Liquid-based cerv Pap + CT/G C by BAMBI w reflex to high-risk HPV for ASCUSOrdered By: Mary Lou Hammond on 01-24-2023 Cytology report Cyto stain.thin prep Doc (Cvx/Vag) Comment . [facility] Comment on above: Criteria not met, HP V Genotype not performed.Performed at: [facility] [id number] [place], [place] [id number] Director: Mike Adrian MD, Phone: [phone] at: WB - [facility] [id number] Director: Laurence Joseph MD, Phone: [phone] at: =G - [facility] [address] [id number] Director: Laurence Joseph MD, Phone: [phone] MCHC Auto (RBC) [Mass/Vol]Or dered By: Mar yLou Hammond on 01-24-2023 MCHC (RBC) [Mass/Vol] 32.8 g/dL 32-36 [facility] No Panel InformationOrdered By: Mary Lou Hammnod on 01-24-2023 Pathology report final diagnosis Narrative Comment . [facility] Comment on above: NEGATIVE FOR INTRAEP ITHELIAL LESION OR MALIGNANCY. Estimated GFR (MDRD) Amer 98 mL/min >60 [facility] Comment on above: GFR Calc Estimated GFR (MDRD) Non-Af Amer 81 mL/min >60 [facility] Comment on above: Non- GFR Calc Hepatitis B Surface Antigen Non-Reactive Nonreactive [facility] Hepatitis C Antibody Non-Reactive Nonreactive [facility] Comment on above: Non Reactive: < 0.8 Equivocal: >/= 0.8 to < 1.0 Reactive: >/= 1.0The CDC recommends that a reactive/equivocal HCV antibody result be followed up by the HCV Nucleic Acid Amplificationtest (350035) Miscellaneous Test See comment [facility] Comment on above: TEST RESULTS LIMITST SH Receptor Antibody (TBII) <0.3 U/LReference Range:Antibody Titer: <1.0 U/L = Negative1.1 - 1.5 U/L = Equivocal >1.5 U/L = Positive TESTING PERFORMED AT [facility]. ORIGINAL REPORT ON FILE IN LAB CONTAINS ADDITIONAL TEST SITE INFORMATION. Miscellaneous Test Comment MAILED SPECIMEN [facility] Rubella IgG Antibody Reactive Nonreactive [facility] Comment on above: Antibody Results Int erpretation of Immune Status Non Reactive Presumed Non-Immune Equivocal Equivocal Reactive Presumed Immune Thyroid Stimulating Hormone (TSH) 2.20 uIU/mL 0.358-3.74 [facility] Platelets bldOrdered By: Dalia Hammond on 01-24-2023 Platelets (Bld) [#/Vol] 413 10*3/uL 150-450 [facility] Serum Treponema species anti body detectionOrdered By: Mary Lou Hammond on 01-24-2023 Treponema sp Ab Ql (S) Non-Reactive [facility] Serum or plasma albumin yohana urement (mass/volume)Ordered By: Mary Lou Hammond on 01-24-2023 Albumin [Mass/Vol] 3.1 g/dL 3.2-5.0 [facility] Serum or plasma albumin/glob ulin mass ratioOrdered By: Mary Lou Hammond on 01-24-2023 Albumin/Globulin [Mass ratio] 0.7 {ratio} 0.9-2.4 [facility] Serum or plasma calcium yohana urement (mass/volume)Ordered By: Mary Lou Hammond on 01-24-2023 Calcium [Mass/Vol] 9.5 mg/dL 8.5-10.1 [facility] Serum or plasma creatinine m easurement (mass/volume)Ordered By: Mary Lou Hammond on 01-24-2023 Creatinine [Mass/Vol] 0.83 mg/dL 0.55-1.02 [facility] Comment on above: The validity of the calculated GFR & GFRAA in patients over 70 years has not been determined. Clinical correlation is essential. Serum or plasma urea nitroge n measurement (mass/volume)Ordered By: Mary Lou Hammond on 01-24-2023 Urea nitrogen [Mass/Vol] 11 mg/dL 7-18 [facility] Thin prep Papanicolaou smear with manual screeningOrdered By: Mary Lou Hammond on 01-24-2023 Thin prep Papanicolaou smear with manual screening 14 U/L 15-37 [facility] Thin prep Papanicolaou smear with manual screening 8 5-15 [facility] Urine creatinine measurement (mass/volume)Ordered By: Mary Lou Hammond on 01-24-2023 Creatinine (U) [Mass/Vol] 104.00 mg/dL NO RANGE EST. [facility] Urine protein measurement (m ass/volume)Ordered By: Mary Lou Hammond on 01-24-2023 Protein (U) [Mass/Vol] 12.0 mg/dL 0.0-11.8 [facility] Urine protein/creatinine mas s ratioOrdered By: Mary Lou Hammond on 01-24-2023 Protein/Creatinine (U) [Mass ratio] 115 mg/g CRE 0-200 [facility] Whole blood hemoglobin A1c/t otal hemoglobin ratio (mass fraction)Ordered By: Mary Lou Hammond on 01-24-2023 HbA1c (Bld) [Mass fraction] 5.8 % 3.8-5.6 [facility] Comment on above: Normal < 5.7 % Predi abetic 5.7 - 6.4 % Diabetic >or= 6.5 % Please note range changes. Absolute lymphocyte countOrd ered By: Nemesio Zarco on 01-04-2023 Lymphocytes Auto (Unsp spec) [#/Vol] 2.82 10*3/uL 0.83-4.51 [facility] Basophil percentageOrdered B y: Nemesio Zarco on 01-04-2023 Basophils/100 WBC (Bld) 0.3 % 0-1 [facility] Bilirubin [Mass/Vol] 0.10 mg/dL 0.20-1.00 [facility] Comment on above: For patients on eltr ombopag therapy, use of Dimension [place] TBIL is not recommended. Chloride [Moles/Vol] 103 mmol/L 98-107 [facility] Cholesterol [Mass/Vol] 154 mg/dL <200 [facility] Comment on above: <200 mg/dL Desirable 200-240 mg/dL Borderline >240 mg/dL High Risk Eosinophils/100 WBC (Bld) 1.5 % 0-5 [facility] Glucose [Mass/Vol] 97 mg/dL 74-106 [facility] Neutrophils (Bld) [#/Vol] 7.5 10*3/uL 2.0-7.7 [facility] Neutrophils/100 WBC (Bld) 66.1 % 47-70 [facility] Potassium [Moles/Vol] 4.3 mmol/L 3.5-5.1 [facility] Protein [Mass/Vol] 7.7 g/dL 6.4-8.2 [facility] Sodium [Moles/Vol] 134 mmol/L 136-145 [facility] Triglyceride [Mass/Vol] 186 mg/dL <199 [facility] Comment on above: The drugs N-Acetylcy steine and Metamizole may falsely depress this assay.Serum Triglycerides Reference Interval Normal <150 mg/dL Borderline high 150 - 199 mg/dL High 200 - 499 mg/dL Very High > or = 500 mg/dL WBC (Bld) [#/Vol] 11.3 10*3/uL 4.4-11.0 [facility] Blood erythrocytes count (nu mber/volume)Ordered By: Nemesio Zarco on 01-04-2023 RBC (Bld) [#/Vol] 4.27 10*6/uL 4.2-5.4 [facility] Blood hemoglobin measurement (mass/volume)Ordered By: Nemesio Zarco on 01-04-2023 Hemoglobin (Bld) [Mass/Vol] 13.0 g/dL 12.0-15.0 [facility] Blood lymphocytes/100 leukoc ytesOrdered By: Nemesio Zarco on 01-04-2023 Lymphocytes/100 WBC (Bld) 25.0 % 19-41 [facility] Blood monocytes/100 leukocyt esOrdered By: Nemesio Zarco on 01-04-2023 Monocytes/100 WBC (Bld) 6.7 % 0-10 [facility] Blood platelet mean volumeOr dered By: Nemesio Zarco on 01-04-2023 Platelet mean volume (Bld) [Entitic vol] 9.5 fL 6.2-12.0 [facility] Determination of erythrocyte mean corpuscular volume (MCV)Ordered By: Nemesio Zarco on 01-04-2023 MCV (RBC) [Entitic vol] 94.4 fL 81-99 [facility] Hematocrit Auto (Bld) [Volum e fraction]Ordered By: Nemesio Zarco on 01-04-2023 Hematocrit (Bld) [Volume fraction] 40.3 % 37-47 [facility] Laboratory - Chemistry and C hemistry - challengeOrdered By: Nemesio Zarco on 01-04-2023 ALP [Catalytic activity/Vol] 79 U/L 45-117 [facility] ALT [Catalytic activity/Vol] 27 U/L 13-56 [facility] CO2 [Moles/Vol] 23.0 mmol/L 21.0-32.0 [facility] Globulin (S) [Mass/Vol] 4.4 g/dL 2.2-4.2 [facility] Urea nitrogen/Creatinine [Mass ratio] 12.8 mg/mg 10-20 [facility] Laboratory - Hematology and Cell countsOrdered By: Nemesio Zarco on 01-04-2023 Erythrocyte distribution width (RBC) [Entitic vol] 44.2 fL 35.1-43.9 [facility] Erythrocyte distribution width (RBC) [Ratio] 12.9 % 11.6-14.6 [facility] Immature granulocytes/100 WBC (Bld) 0.400 % 0.0-0.9 [facility] Comment on above: IG% - Immature Granu locytes (promyelocytes, myelocytes and metamyelocytes) > 1% indicates that a LEFT SHIFT is Present. MCH (RBC) [Entitic mass] 30.4 pg 27.0-32.0 [facility] Nucleated RBC/100 WBC (Bld) [Ratio] 0 % 0-5 [facility] MCHC Auto (RBC) [Mass/Vol]Or dered By: Nemesio Zarco on 01-04-2023 MCHC (RBC) [Mass/Vol] 32.3 g/dL 32-36 [facility] No Panel InformationOrdered By: Nemesio Zarco on 01-04-2023 Estimated GFR (MDRD) Amer 106 mL/min >60 [facility] Comment on above: GFR Calc Estimated GFR (MDRD) Non-Af Amer 88 mL/min >60 [facility] Comment on above: Non- GFR Calc Thyroid Stimulating Hormone (TSH) 2.45 uIU/mL 0.358-3.74 [facility] Platelets bldOrdered By: Dago Zarco on 01-04-2023 Platelets (Bld) [#/Vol] 442 10*3/uL 150-450 [facility] Serum or plasma albumin yohana urement (mass/volume)Ordered By: Nemesio Zarco on 01-04-2023 Albumin [Mass/Vol] 3.3 g/dL 3.2-5.0 [facility] Serum or plasma albumin/glob ulin mass ratioOrdered By: Nemesio Zarco on 01-04-2023 Albumin/Globulin [Mass ratio] 0.8 {ratio} 0.9-2.4 [facility] Serum or plasma calcium yohana urement (mass/volume)Ordered By: Nemesio Zarco on 01-04-2023 Calcium [Mass/Vol] 9.5 mg/dL 8.5-10.1 [facility] Serum or plasma cholesterol in HDL measurement (mass/volume)Ordered By: Nemesio Zarco on 01-04-2023 Cholesterol in HDL [Mass/Vol] 52 mg/dL >40 [facility] Comment on above: The drugs N-Acetylcy steine and Metamizole may falsely depress this assay. Reference Range HDL <40 mg/dL Low HDL Cholesterol HDL >or= 60 mg/dL High HDL Cholesterol Serum or plasma cholesterol in VLDL measurement (mass/volume)Ordered By: Nemesio Zarco on 01-04-2023 Cholesterol in VLDL [Mass/Vol] 37 mg/dL 5-40 [facility] Serum or plasma choriogonado tropin detectionOrdered By: Nemesio Zarco on 01-04-2023 HCG ( test) [place]l [address] mIU/mL <4 [facility] Comment on above: hCG levels with Gest ational AgeGestational Age hCG mIU/mL (IU/L)0.2 - 1 week 5 - 501-2 weeks 50 - 5002-3 weeks 100 - 62287-1 weeks 500 - 946184-3 weeks 1000 - 751099-7 weeks 32531 - 100,0006-8 weeks 74082 - 200,0002-3 months 20274 - 100,000 Serum or plasma creatinine m easurement (mass/volume)Ordered By: Nemesio Zarco on 01-04-2023 Creatinine [Mass/Vol] 0.78 mg/dL 0.55-1.02 [facility] Comment on above: The validity of the calculated GFR & GFRAA in patients over 70 years has not been determined. Clinical correlation is essential. Serum or plasma low density lipoprotein (LDL) cholesterol measurement (mass/volume)Ordered By: Nemesio Zarco on 01-04-2023 Cholesterol in LDL [Mass/Vol] 65 mg/dL 0-130 [facility] Serum or plasma urea nitroge n measurement (mass/volume)Ordered By: Nemesio Zarco on 01-04-2023 Urea nitrogen [Mass/Vol] 10 mg/dL 7-18 [facility] Thin prep Papanicolaou smear with manual screeningOrdered By: Nemesio Zarco on 01-04-2023 Thin prep Papanicolaou smear with manual screening 11 U/L 15-37 [facility] Thin prep Papanicolaou smear with manual screening 8 5-15 [facility] Absolute lymphocyte counton 01-06-2022 Lymphocytes Auto (Unsp spec) [#/Vol] 2.87 10*3/uL 0.83-4.51 [facility] Work Phone: Basophil percentageon 2021 Basophils/100 WBC (Bld) 0.4 % 0-1 [facility] Work Phone: Bilirubin [Mass/Vol] 0.20 mg/dL 0.20-1.00 [facility] Work Phone: Comment on above: For patients on eltr ombopag therapy, use of [employer] TBIL is not recommended. Chloride [Moles/Vol] 105 mmol/L 98-107 [facility] Work Phone: Cholesterol [Mass/Vol] 190 mg/dL <200 [facility] Work Phone: Comment on above: <200 mg/dL Desirable 200-240 mg/dL Borderline >240 mg/dL High Risk Eosinophils/100 WBC (Bld) 2.6 % 0-5 [facility] Work Phone: Glucose [Mass/Vol] 93 mg/dL 74-106 [facility] Work Phone: Neutrophils (Bld) [#/Vol] 6.2 10*3/uL 2.0-7.7 [facility] Work Phone: Neutrophils/100 WBC (Bld) 60.9 % 47-70 [facility] Work Phone: Potassium [Moles/Vol] 4.5 mmol/L 3.5-5.1 [facility] Work Phone: Protein [Mass/Vol] 7.9 g/dL 6.4-8.2 [facility] Work Phone: Sodium [Moles/Vol] 136 mmol/L 136-145 [facility] Work Phone: Triglyceride [Mass/Vol] 236 mg/dL <199 [facility] Work Phone: [phone] Comment on above: The drugs N-Acetylcy steine and Metamizole may falsely depress this assay.Serum Triglycerides Reference Interval Normal <150 mg/dL Borderline high 150 - 199 mg/dL High 200 - 499 mg/dL Very High > or = 500 mg/dL WBC (Bld) [#/Vol] 10.1 10*3/uL 4.4-11.0 [facility] Work Phone: [phone] Blood erythrocytes count (nu mber/volume)on 01-06-2022 RBC (Bld) [#/Vol] 4.20 10*6/uL 4.2-5.4 [facility] Work Phone: Blood hemoglobin measurement (mass/volume)on 01-06-2022 Hemoglobin (Bld) [Mass/Vol] 12.8 g/dL 12.0-15.0 [facility] Work Phone: Blood lymphocytes/100 leukoc yteson 01-06-2022 Lymphocytes/100 WBC (Bld) 28.3 % 19-41 [facility] Work Phone: Blood monocytes/100 leukocyt eson 01-06-2022 Monocytes/100 WBC (Bld) 7.4 % 0-10 [facility] Work Phone: Blood platelet mean volumeon 01-06-2022 Platelet mean volume (Bld) [Entitic vol] 9.5 fL 6.2-12.0 [facility] Work Phone: Determination of erythrocyte mean corpuscular volume (MCV)on 01-06-2022 MCV (RBC) [Entitic vol] 95.0 fL 81-99 [facility] Work Phone: [phone] Hematocrit Auto (Bld) [Volum e fraction]on 01-06-2022 Hematocrit (Bld) [Volume fraction] 39.9 % 37-47 [facility] Work Phone: [phone] Laboratory - Chemistry and C hemistry - challengeon 01-06-2022 ALP [Catalytic activity/Vol] 97 U/L 45-117 [facility] Work Phone: ALT [Catalytic activity/Vol] 40 U/L 13-56 [facility] Work Phone: [phone] CO2 [Moles/Vol] 25.0 mmol/L 21.0-32.0 [facility] Work Phone: [phone] Globulin (S) [Mass/Vol] 4.4 g/dL 2.2-4.2 [facility] Work Phone: [phone] Urea nitrogen/Creatinine [Mass ratio] 14.5 mg/mg 10-20 [facility] Work Phone: Laboratory - Hematology and Cell countson 01-06-2022 Erythrocyte distribution width (RBC) [Entitic vol] 47.2 fL 35.1-43.9 [facility] Work Phone: [phone] Erythrocyte distribution width (RBC) [Ratio] 13.7 % 11.6-14.6 [facility] Work Phone: [phone] Immature granulocytes/100 WBC (Bld) 0.400 % 0.0-0.9 [facility] Work Phone: [phone] Comment on above: IG% - Immature Granu locytes (promyelocytes, myelocytes and metamyelocytes) > 1% indicates that a LEFT SHIFT is Present. MCH (RBC) [Entitic mass] 30.5 pg 27.0-32.0 [facility] Work Phone: Nucleated RBC/100 WBC (Bld) [Ratio] 0 % 0-5 [facility] Work Phone: MCHC Auto (RBC) [Mass/Vol]on 01-06-2022 MCHC (RBC) [Mass/Vol] 32.1 g/dL 32-36 [facility] Work Phone: No Panel Informationon 01-06 Estimated GFR (MDRD) Amer 91 mL/min >60 [facility] Work Phone: Comment on above: GFR Calc Estimated GFR (MDRD) Non-Af Amer 75 mL/min >60 [facility] Work Phone: Comment on above: Non- GFR Calc Platelets bldon 01-06-2022 Platelets (Bld) [#/Vol] 448 10*3/uL 150-450 [facility] Work Phone: Serum or plasma albumin yohana urement (mass/volume)on 01-06-2022 Albumin [Mass/Vol] 3.5 g/dL 3.2-5.0 [facility] Work Phone: Serum or plasma albumin/glob ulin mass ratioon 01-06-2022 Albumin/Globulin [Mass ratio] 0.8 {ratio} 0.9-2.4 [facility] Work Phone: Serum or plasma calcium yohana urement (mass/volume)on 01-06-2022 Calcium [Mass/Vol] 9.3 mg/dL 8.5-10.1 [facility] Work Phone: Serum or plasma cholesterol in HDL measurement (mass/volume)on 01-06-2022 Cholesterol in HDL [Mass/Vol] 45 mg/dL >40 [facility] Work Phone: Comment on above: The drugs N-Acetylcy steine and Metamizole may falsely depress this assay. Reference Range HDL <40 mg/dL Low HDL Cholesterol HDL >or= 60 mg/dL High HDL Cholesterol Serum or plasma cholesterol in VLDL measurement (mass/volume)on 01-06-2022 Cholesterol in VLDL [Mass/Vol] 47 mg/dL 5-40 [facility] Work Phone: Serum or plasma creatinine m easurement (mass/volume)on 01-06-2022 Creatinine [Mass/Vol] 0.90 mg/dL 0.55-1.02 [facility] Work Phone: Comment on above: The validity of the calculated GFR & GFRAA in patients over 70 years has not been determined. Clinical correlation is essential. Serum or plasma low density lipoprotein (LDL) cholesterol measurement (mass/volume)on 01-06-2022 Cholesterol in LDL [Mass/Vol] 98 mg/dL 0-130 [facility] Work Phone: Serum or plasma urea nitroge n measurement (mass/volume)on 01-06-2022 Urea nitrogen [Mass/Vol] 13 mg/dL 7-18 [facility] Work Phone: Thin prep Papanicolaou smear with manual screeningon 01-06-2022 Thin prep Papanicolaou smear with manual screening 23 U/L 15-37 [facility] Work Phone: Thin prep Papanicolaou smear with manual screening 6 5-15 [facility] Work Phone: Amb Office-Progress Notes-Pr kely 02-11-2018 Protein mass conc Patient: DALIA STRANGE Age: 32 years Sex: Female : 1985 Associated Diagnoses: None Author: BRYSON LARA, SUNSH[facility] Visit Information Visit type: Scheduled follow-up. Accompanied by: Significant other. Source of history: Self. History limitation: None. Chief Complaint History of Present Illness Monica is here for follow-up after recent workup including an echocardiogram which showed normal LV function and no structural abnormalities. She still weighs 335 pounds. Her palpitations have subsided almost completely and she seems to be feeling much better and blood pressure is good at 133/83. No chest pain no dizziness no lightheadedness. Had a long discussion with her about exercise diet and weight loss. Review of Systems Constitutional: Negative. Eye: Negative. Ear/Nose/Mouth/Throat: Negative. Respiratory: No shortness of breath, No cough, No wheezing. Cardiovascular: No chest pain, No palpitations, No peripheral edema. Gastrointestinal: No nausea, No vomiting, No heartburn, No abdominal pain. Genitourinary: Negative. Hematology/Lymphatics: Negative. Endocrine: Negative. Immunologic: Negative. Musculoskeletal: Negative. Integumentary: Negative. Psychiatric: Negative. Health Status Allergies: Allergic Reactions (All)No Known Medication Allergies, Allergies (1) Active ReactionNo Known Medication Allergies None Documented Current medications: (Selected) Documented MedicationsDocumentedDilTI AZem Hydrochloride CD 120 mg/24 hours oral capsule, extended release: 120 mg = 1 caps, ORAL, DAILY, 90 caps, 0 Refill(s)Nasacort Allergy 24HR 55 mcg/inh nasal spray: sprays, Intranasal, DAILY, 0 Refill(s)levothyroxine 112 mcg (0.112 mg) oral capsule: 112 mcg = 1 caps, ORAL, DAILY, 0 Refill(s)lisinopril 20 mg oral tablet: 20 mg = 1 tabs, ORAL, DAILY, 90 tabs, 0 Refill(s)metFORMIN 500 mg oral tablet: 500 mg = 1 tabs, ORAL, BID, 180 tabs, 0 Refill(s)spironolactone 50 mg oral tablet: 50 mg = 1 tabs, ORAL, DAILY, 30 tabs, 0 Refill(s) Problem list: Active Problems (2)Hypotension Tachycardia Histories Past Medical History: No qualifying data available Family History: FatherDiabetes.. Procedure history: No active procedure history items have been selected or recorded. Social History Social & Psychosocial LxqtxvXyyqyfm92/28/2018 Use: Current Frequency: 1-2 times per atbvrFuzgn75/28/2018 Name: caffiene Comment: 1 glass of ice tea daily - 01/17/2018 16:42 - Nayeli Gomez MA SSubstance Abuse01/17/2018 Risk Assessment: Denies Substance CfuafSdbalpk40/28/2018 Use: Never (less than 100 in l. Physical Examination No qualifying data available. General: Alert and oriented, No acute distress. Eye: Normal conjunctiva, Vision unchanged. HENT: Normal hearing. Neck: Supple, Non-tender, No carotid bruit, No jugular venous distention, No lymphadenopathy. Respiratory: Lungs are clear to auscultation, Breath sounds are equal, Symmetrical chest wall expansion. Cardiovascular: Normal rate, No gallop, Good pulses equal in all extremities, Normal peripheral perfusion, No edema. Bruit: None. Gastrointestinal: Soft, Non-tender, Normal bowel sounds. Genitourinary: No costovertebral angle tenderness. Musculoskeletal: No tenderness, No swelling. Integumentary: Warm, Dry. Neurologic: Alert, Normal sensory, Normal motor function, Cranial Nerves II-XII are grossly intact. Review / Management No qualifying data available Impression and Plan 1.Palpitatons: have resolved and her work up is negative including noral EF2.Hypertension3.Polycyst ic ovaries4.Near normal Holter5.Moderate obesity: advised about diet and exercise6.Continue current medications7.Follow up in six months or sooner if continues to be symptomatic Normal [facility] Amb Office-Progress Notes-Pr shirleyeron 02-04-2018 Protein mass conc Patient: DALIA STRANGE Age: 32 years Sex: Female : 1985 Associated Diagnoses: None Author: BRYSON LARA, [facility] Visit Information Visit type: New symptom. Accompanied by: No one. Source of history: Self. History limitation: None. Chief Complaint History of Present Illness Monica is a pleasant 32-year-old lady who weighs 338 pounds is here for cardiac evaluation for palpitations. Patient has history of hypertension polycystic ovaries and is known to have tachycardia. She has history of hypothyroidism and currently she is taking levothyroxine. Daughter Haroldo. No chest pain no dizziness no lightheadedness. No syncope. She gets her heart racing on and off and lasts for a few minutes and subsides by itself. She does not take too much caffeine or energy drinks. She does not carry any diagnosis of depression or anxiety but patient seems to be under a lot of stress from her work. No chest pain no dizziness no history of failure. She is not a diabetic. She does take metformin for polycystic ovaries. No history of heart failure no COPD and she does not take any [id number]-[id number] medications and she does not take any allergy medications either. I probably would get a Holter monitor to evaluate this palpitations and maybe an echocardiogram to rule out any structural abnormalities Review of Systems Constitutional: Negative. Eye: Negative. Ear/Nose/Mouth/Throat: Negative. Respiratory: No shortness of breath, No cough, No wheezing. Cardiovascular: No chest pain, No palpitations, No peripheral edema. Gastrointestinal: No nausea, No vomiting, No heartburn, No abdominal pain. Genitourinary: Negative. Hematology/Lymphatics: Negative. Endocrine: Negative. Immunologic: Negative. Musculoskeletal: Negative. Integumentary: Negative. Psychiatric: Negative. Health Status Allergies: Allergic Reactions (All)No Known Medication Allergies, Allergies (1) Active ReactionNo Known Medication Allergies None Documented Current medications: (Selected) Documented MedicationsDocumentedDilTI AZem Hydrochloride CD 120 mg/24 hours oral capsule, extended release: 120 mg = 1 caps, ORAL, DAILY, 90 caps, 0 Refill(s)Nasacort Allergy 24HR 55 mcg/inh nasal spray: sprays, Intranasal, DAILY, 0 Refill(s)levothyroxine 112 mcg (0.112 mg) oral capsule: 112 mcg = 1 caps, ORAL, DAILY, 0 Refill(s)lisinopril 20 mg oral tablet: 20 mg = 1 tabs, ORAL, DAILY, 90 tabs, 0 Refill(s)metFORMIN 500 mg oral tablet: 500 mg = 1 tabs, ORAL, BID, 180 tabs, 0 Refill(s)spironolactone 50 mg oral tablet: 50 mg = 1 tabs, ORAL, DAILY, 30 tabs, 0 Refill(s) Problem list: Active Problems (2)Hypotension Tachycardia Histories Past Medical History: No qualifying data available Family History: FatherDiabetes.. Procedure history: No active procedure history items have been selected or recorded. Social History Social & Psychosocial QoaxgcFujwzys62/28/2018 Use: Current Frequency: 1-2 times per hvgvtBdlev99/28/2018 Name: caffiene Comment: 1 glass of ice tea daily - 01/17/2018 16:42 - Nayeli Gomez MA SSubstance Abuse01/17/2018 Risk Assessment: Denies Substance ArbkeIjyvldf86/28/2018 Use: Never (less than 100 in l. Physical Examination No qualifying data available. VS/Measurements Documented vital signs: Blood Pressure ( Systolic 124 mmHg, Diastolic 75 mmHg ) General: Alert and oriented, No acute distress. Eye: Normal conjunctiva, Vision unchanged. HENT: Normal hearing. Neck: Supple, Non-tender, No carotid bruit, No jugular venous distention, No lymphadenopathy. Respiratory: Lungs are clear to auscultation, Breath sounds are equal, Symmetrical chest wall expansion. Cardiovascular: Normal rate, No gallop, Good pulses equal in all extremities, Normal peripheral perfusion, No edema. Bruit: None. Gastrointestinal: Soft, Non-tender, Normal bowel sounds. Genitourinary: No costovertebral angle tenderness. Musculoskeletal: No tenderness, No swelling. Integumentary: Warm, Dry. Neurologic: Alert, Normal sensory, Normal motor function, Cranial Nerves II-XII are grossly intact. Review / Management No qualifying data available Impression and Plan 1.Palpitatons2.Hypertensio n3.Polycystic ovaries4.Will get echo to rule out any structural abnormalities and to assess her EF5.Event monitor6.Continue current medications7.Follow up in two weeks. Normal [facility] Vital Signs Date Time Vital Sign Value Performing Clinician Susan alcala 2023 14:16-0400 Body height 167.64 cm COBOL DEVELOPERJessica Zarco COBOL DEVELOPER Work Phone: [facility] 2023 14:15-0400 Body mass index (BMI) [Ratio] 53.6 kg/m2 COBOL DEVELOPERJessica Zarco COBOL DEVELOPER Work Phone: [facility] 2023 14:15-0400 Body weight 150.64 kg COBOL DEVELOPERJessica Zarco COBOL DEVELOPER Work Phone: [facility] 2023 14:15-0400 Diastolic blood pressure 88 mm[Hg] WADE Zarco COBOL DEVELOPER Work Phone: [facility] 2023 14:15-0400 Systolic blood pressure 135 mm[Hg] WADE Zarco COBOL DEVELOPER Work Phone: [facility] 06-19-2023 14:41-0400 Body height 167.64 cm WADE Zarco COBOL DEVELOPER Work Phone: [facility] 06-19-2023 14:41-0400 Body mass index (BMI) [Ratio] 53.4 kg/m2 COBOL DEVELOPER-C Nemesio Zarco COBOL DEVELOPER Work Phone: [facility] 06-19-2023 14:41-0400 Body weight 150.13 kg COBOL DEVELOPER-C Nemesio Zarco COBOL DEVELOPER Work Phone: [facility] 06-19-2023 14:41-0400 Diastolic blood pressure 86 mm[Hg] COBOL DEVELOPER-C Nemesio Zarco COBOL DEVELOPER Work Phone: [facility] 06-19-2023 14:41-0400 Systolic blood pressure 131 mm[Hg] COBOL DEVELOPER-C Nemesio Zarco COBOL DEVELOPER Work Phone: [facility] 06-12-2023 14:05-0400 Body height 167.64 cm COBOL DEVELOPER-C Nemesio Zarco COBOL DEVELOPER Work Phone: [facility] 06-12-2023 14:03-0400 Body mass index (BMI) [Ratio] 53.4 kg/m2 COBOL DEVELOPER-C Nemesio Zarco COBOL DEVELOPER Work Phone: [facility] 06-12-2023 14:03-0400 Body weight 150.13 kg COBOL DEVELOPER-C Nemesio Zarco COBOL DEVELOPER Work Phone: [facility] 06-12-2023 14:03-0400 Diastolic blood pressure 89 mm[Hg] COBOL DEVELOPER-C Nemesio Zarco COBOL DEVELOPER Work Phone: [facility] 06-12-2023 14:03-0400 Systolic blood pressure 137 mm[Hg] COBOL DEVELOPER-C Nemesio Zarco COBOL DEVELOPER Work Phone: [facility] 06-08-2023 16:57-0400 Body mass index (BMI) [Ratio] 37.5 kg/m2 COBOL DEVELOPER-C Nemesio Zarco COBOL DEVELOPER Work Phone: [facility] 06-08-2023 16:57-0400 Body temperature 98.1 [degF] COBOL DEVELOPER-Lexus Zarco COBOL DEVELOPER Work Phone: [facility] 06-08-2023 16:57-0400 Body weight 105.68 kg COBOL DEVELOPER-C Nemesio Zarco COBOL DEVELOPER Work Phone: [facility] 06-08-2023 16:57-0400 Diastolic blood pressure 60 mm[Hg] COBOL DEVELOPER-C Nemesio Zarco COBOL DEVELOPER Work Phone: [facility] 06-08-2023 16:57-0400 Heart rate 97 /min COBOL DEVELOPER-C Nemesio Zarco COBOL DEVELOPER Work Phone: [facility] 06-08-2023 16:57-0400 Respiratory rate 18 /min COBOL DEVELOPER-C Nemesio Zarco COBOL DEVELOPER Work Phone: [facility] 06-08-2023 16:57-0400 SaO2% (BldA) [Mass fraction] 97 % COBOL DEVELOPER-C Nemesio Zarco COBOL DEVELOPER Work Phone: [facility] 06-08-2023 16:57-0400 Systolic blood pressure 122 mm[Hg] COBOL DEVELOPER-C Nemesio Zarco COBOL DEVELOPER Work Phone: [facility] 06-05-2023 10:37-0400 Body mass index (BMI) [Ratio] 37.1 kg/m2 COBOL DEVELOPER-C Nemesio Zarco COBOL DEVELOPER Work Phone: [facility] 06-05-2023 10:37-0400 Body weight 104.32 kg COBOL DEVELOPER-C Nemesio Zarco COBOL DEVELOPER Work Phone: [facility] 06-05-2023 10:37-0400 Diastolic blood pressure 82 mm[Hg] COBOL DEVELOPER-C Nemesio Zarco COBOL DEVELOPER Work Phone: [facility] 06-05-2023 10:37-0400 Systolic blood pressure 132 mm[Hg] COBOL DEVELOPER-C Nemesio Zarco COBOL DEVELOPER Work Phone: [facility] 05-30-2023 08:25-0400 Body mass index (BMI) [Ratio] 53.1 kg/m2 COBOL DEVELOPER-C Nemesio Zarco COBOL DEVELOPER Work Phone: [facility] 05-30-2023 08:25-0400 Body temperature 98.2 [degF] COBOL DEVELOPER-C Nemesio Zarco COBOL DEVELOPER Work Phone: [facility] 05-30-2023 08:25-0400 Body weight 149.23 kg COBOL DEVELOPER-C Nemesio Zarco COBOL DEVELOPER Work Phone: [facility] 05-30-2023 08:25-0400 Diastolic blood pressure 81 mm[Hg] COBOL DEVELOPER-C Nemesio Zarco COBOL DEVELOPER Work Phone: [facility] 05-30-2023 08:25-0400 Heart rate 84 /min COBOL DEVELOPER-C Nemesio Zarco COBOL DEVELOPER Work Phone: [facility] 05-30-2023 08:25-0400 SaO2% (BldA) [Mass fraction] 98 % COBOL DEVELOPER-C Nemesio Zarco COBOL DEVELOPER Work Phone: [facility] 05-30-2023 08:25-0400 Systolic blood pressure 146 mm[Hg] COBOL DEVELOPER-C Nemesio Zarco COBOL DEVELOPER Work Phone: [facility] 05-03-2023 13:26-0400 Body height 167.64 cm COBOL DEVELOPER-C Nemesio Zarco COBOL DEVELOPER Work Phone: [phone] [place] [address] 05-03-2023 13:24-0400 Body mass index (BMI) [Ratio] 53.2 kg/m2 COBOL DEVELOPER-C Nemesio Zarco COBOL DEVELOPER Work Phone: [facility] 05-03-2023 13:24-0400 Body weight 149.68 kg COBOL DEVELOPER-C Nemesio Zarco COBOL DEVELOPER Work Phone: [facility] 05-03-2023 13:24-0400 Diastolic blood pressure 86 mm[Hg] COBOL DEVELOPER-C Nemesio Zarco COBOL DEVELOPER Work Phone: [facility] 05-03-2023 13:24-0400 Systolic blood pressure 136 mm[Hg] COBOL DEVELOPER-C Nemesio Zarco COBOL DEVELOPER Work Phone: [facility] 04-05-2023 13:17-0500 Body mass index (BMI) [Ratio] 53.4 kg/m2 COBOL DEVELOPER-C Nemesio Zarco COBOL DEVELOPER Work Phone: [facility] 04-05-2023 13:17-0500 Body weight 150.3 kg COBOL DEVELOPER-C Nemesio Zarco COBOL DEVELOPER Work Phone: [facility] 04-05-2023 13:17-0500 Diastolic blood pressure 89 mm[Hg] COBOL DEVELOPER-C Nemesio Zarco COBOL DEVELOPER Work Phone: [facility] 04-05-2023 13:17-0500 Systolic blood pressure 139 mm[Hg] COBOL DEVELOPER-C Nemesio Zarco COBOL DEVELOPER Work Phone: [facility] 03-15-2023 15:02-0500 Body mass index (BMI) [Ratio] 53.8 kg/m2 COBOL DEVELOPER-C Nemesio Zarco COBOL DEVELOPER Work Phone: [facility] 03-15-2023 15:02-0500 Body weight 151.49 kg COBOL DEVELOPER-C Nemesio Zarco COBOL DEVELOPER Work Phone: [facility] 03-15-2023 15:02-0500 Diastolic blood pressure 62 mm[Hg] COBOL DEVELOPER-C Nemesio Zarco COBOL DEVELOPER Work Phone: [facility] 03-15-2023 15:02-0500 Heart rate 98 /min COBOL DEVELOPER-C Nemesio Zarco COBOL DEVELOPER Work Phone: [facility] 03-15-2023 15:02-0500 Respiratory rate 16 /min COBOL DEVELOPER-C Nemesio Zarco COBOL DEVELOPER Work Phone: [facility] 03-15-2023 15:02-0500 Systolic blood pressure 130 mm[Hg] COBOL DEVELOPER-C Nemesio Zarco COBOL DEVELOPER Work Phone: [facility] 03-07-2023 11:27-0500 Body mass index (BMI) [Ratio] 55 kg/m2 COBOL DEVELOPER-C Nemesio Zarco COBOL DEVELOPER Work Phone: [facility] 03-07-2023 11:27-0500 Body weight 154.73 kg COBOL DEVELOPER-C Nemesio Zarco COBOL DEVELOPER Work Phone: [facility] 03-07-2023 11:27-0500 Diastolic blood pressure 86 mm[Hg] COBOL DEVELOPER-C Nemesio Zarco COBOL DEVELOPER Work Phone: [facility] 03-07-2023 11:27-0500 Systolic blood pressure 136 mm[Hg] COBOL DEVELOPER-C Nemesio Zarco COBOL DEVELOPER Work Phone: [facility] 02-23-2023 09:45-0500 Body mass index (BMI) [Ratio] 56 kg/m2 COBOL DEVELOPER-C Nemesio Hallson COBOL DEVELOPER Work Phone: [facility] 02-23-2023 09:45-0500 Body weight 157.56 kg COBOL DEVELOPER-C Nemesio Zarco COBOL DEVELOPER Work Phone: [facility] 02-23-2023 09:45-0500 Diastolic blood pressure 86 mm[Hg] COBOL DEVELOPER-C Nemesio Zarco COBOL DEVELOPER Work Phone: [facility] 02-23-2023 09:45-0500 Systolic blood pressure 131 mm[Hg] COBOL DEVELOPER-C Nemesio Zarco COBOL DEVELOPER Work Phone: [facility] 02-23-2023 08:24-0500 Body mass index (BMI) [Ratio] 55.7 kg/m2 COBOL DEVELOPER-C Nemesio Zarco COBOL DEVELOPER Work Phone: [facility] 02-23-2023 08:24-0500 Body temperature 97.5 [degF] COBOL DEVELOPER-C Nemesio Zarco COBOL DEVELOPER Work Phone: [facility] 02-23-2023 08:24-0500 Body weight 156.48 kg COBOL DEVELOPER-C Nemesio Zarco COBOL DEVELOPER Work Phone: [facility] 02-23-2023 08:24-0500 Diastolic blood pressure 90 mm[Hg] COBOL DEVELOPER-C Nemesio Zarco COBOL DEVELOPER Work Phone: [facility] 02-23-2023 08:24-0500 Heart rate 110 /min COBOL DEVELOPER-C Nemesio Hallson COBOL DEVELOPER Work Phone: [facility] 02-23-2023 08:24-0500 SaO2% (BldA) [Mass fraction] 98 % COBOL DEVELOPER-C Nemesio Zarco COBOL DEVELOPER Work Phone: [facility] 02-23-2023 08:24-0500 Systolic blood pressure 146 mm[Hg] COBOL DEVELOPER-C Nemesio Zarco COBOL DEVELOPER Work Phone: [facility] 02-07-2023 14:37-0500 Body mass index (BMI) [Ratio] 56 kg/m2 COBOL DEVELOPER-C Nemesio Zarco COBOL DEVELOPER Work Phone: 5(374)[phone] [address] 02-07-2023 14:37-0500 Body weight 157.39 kg COBOL DEVELOPER-C Nemesio Zarco COBOL DEVELOPER Work Phone: 2(646)[phone] [address] 01-24-2023 13:19-0500 Body height 167.64 cm COBOL DEVELOPER-C Nemesio Zarco COBOL DEVELOPER Work Phone: [phone] [address] 01-24-2023 13:19-0500 Body mass index (BMI) [Ratio] 55.5 kg/m2 COBOL DEVELOPER-C Nemesio Zarco COBOL DEVELOPER Work Phone: [phone] [address] 01-24-2023 13:19-0500 Body weight 156.03 kg COBOL DEVELOPER-C Nemesio Zarco COBOL DEVELOPER Work Phone: [phone] [address] 01-24-2023 13:19-0500 Diastolic blood pressure 86 mm[Hg] COBOL DEVELOPER-C Nemesio Zarco COBOL DEVELOPER Work Phone: [facility] 01-24-2023 13:19-0500 Systolic blood pressure 129 mm[Hg] COBOL DEVELOPER-C Nemesio Zarco COBOL DEVELOPER Work Phone: [facility] 01-17-2023 22:24-0500 Body mass index (BMI) [Ratio] 56.8 kg/m2 COBOL DEVELOPER-C Nemesio Zarco COBOL DEVELOPER Work Phone: [facility] 01-17-2023 22:24-0500 Body temperature 97.9 [degF] COBOL DEVELOPER-Lexus Zarco COBOL DEVELOPER Work Phone: [facility] 01-17-2023 22:24-0500 Body weight 159.66 kg COBOL DEVELOPER-C Nemesio Zarco COBOL DEVELOPER Work Phone: [facility] 01-17-2023 22:24-0500 Diastolic blood pressure 90 mm[Hg] COBOL DEVELOPER-C Nemesio Zarco COBOL DEVELOPER Work Phone: [facility] 01-17-2023 22:24-0500 Heart rate 120 /min COBOL DEVELOPER-C Nemesio Zarco COBOL DEVELOPER Work Phone: [facility] 01-17-2023 22:24-0500 Respiratory rate 18 /min COBOL DEVELOPER-C Nemesio Zarco COBOL DEVELOPER Work Phone: [facility] 01-17-2023 22:24-0500 SaO2% (BldA) [Mass fraction] 98 % COBOL DEVELOPER-C Nemesio Zarco COBOL DEVELOPER Work Phone: [facility] 01-17-2023 22:24-0500 Systolic blood pressure 174 mm[Hg] COBOL DEVELOPER-C Nemesio Zarco COBOL DEVELOPER Work Phone: [facility] 01-04-2023 16:41-0500 Body height 167.64 cm [facility] 01-04-2023 16:41-0500 Body mass index (BMI) [Ratio] 56.8 kg/m2 [facility] 01-04-2023 16:41-0500 Body temperature 98.1 [degF] [facility] 01-04-2023 16:41-0500 Body weight 159.66 kg [facility] 01-04-2023 16:41-0500 Diastolic blood pressure 70 mm[Hg] [facility] 01-04-2023 16:41-0500 Heart rate 111 /min [facility] 01-04-2023 16:41-0500 Respiratory rate 18 /min [facility] 01-04-2023 16:41-0500 SaO2% (BldA) [Mass fraction] 99 % [facility] 01-04-2023 16:41-0500 Systolic blood pressure 117 mm[Hg] [facility] 01-06-2022 16:21-0500 Body height 167.64 cm [facility] Work Phone: 01-06-2022 16:21-0500 Body mass index (BMI) [Ratio] 56.5 kg/m2 [facility] Work Phone: 01-06-2022 16:21-0500 Body temperature 97.7 [degF] [facility] Work Phone: 01-06-2022 16:21-0500 Body weight 158.75 kg [facility] Work Phone: 01-06-2022 16:21-0500 Diastolic blood pressure 60 mm[Hg] [facility] Work Phone: 01-06-2022 16:21-0500 Heart rate 92 /min [facility] Work Phone: 01-06-2022 16:21-0500 Respiratory rate 18 /min [facility] Work Phone: 01-06-2022 16:21-0500 SaO2% (BldA) [Mass fraction] 98 % [facility] Work Phone: 01-06-2022 16:21-0500 Systolic blood pressure 118 mm[Hg] [facility] Work Phone: Encounters Encounter Date Encounter Type Care Provider Facility Start: 12-13-2024 End: 12-13-2024 ambulatory Nemesio Zarco COBOL DEVELOPER Facility[facility] Start: 12-13-2024 End: 12-13-2024 ambulatory Mary Lou Pa Facility:[facility] Start: 01-31-2024 End: 01-31-2024 ambulatory Nemesio Zarco NP Facility:[facility] Start: 07-06-2023 End: 07-06-2023 ambulatory NEMESIO ZARCO [facility] Start: 06-29-2023 Patient encounter procedure ARELY-Lexus Zarco COBOL DEVELOPER Work Phone: [facility] Work Phone: Start: 2023 End: 2023 ambulatory COBOL DEVELOPER-Lexus Zarco COBOL DEVELOPER Work Phone: [facility] Work Phone: Start: 2023 End: 2023 Patient encounter procedure COBOL DEVELOPER-C Nemesio Zarco COBOL DEVELOPER Work Phone: [facility] Work Phone: Start: 2023 End: 2023 Patient encounter procedure COBOL DEVELOPER-C Nemesio Zarco COBOL DEVELOPER Work Phone: [facility] Work Phone: Start: 06-22-2023 End: 06-22-2023 ambulatory COBOL DEVELOPER-C Nemesio Zarco COBOL DEVELOPER Work Phone: [facility] Work Phone: Start: 06-22-2023 End: 06-22-2023 Patient encounter procedure COBOL DEVELOPER-C Nemesio Zarco COBOL DEVELOPER Work Phone: [facility] Work Phone: Start: 06-19-2023 End: 06-19-2023 ambulatory COBOL DEVELOPER-C Nemesio Zarco COBOL DEVELOPER Work Phone: [facility] Work Phone: Start: 06-19-2023 End: 06-19-2023 Patient encounter procedure COBOL DEVELOPER-C Nemesio Zarco COBOL DEVELOPER Work Phone: [facility] Work Phone: Start: 06-19-2023 End: 06-19-2023 Patient encounter procedure COBOL DEVELOPER-C Nemesio Zarco COBOL DEVELOPER Work Phone: [facility] Work Phone: Start: 06-15-2023 End: 06-15-2023 ambulatory COBOL DEVELOPER-C Nemesio Zarco COBOL DEVELOPER Work Phone: [facility] Work Phone: Start: 06-15-2023 End: 06-15-2023 Patient encounter procedure COBOL DEVELOPER-C Nemesio Zarco COBOL DEVELOPER Work Phone: [facility] Work Phone: Start: 06-12-2023 End: 06-12-2023 ambulatory COBOL DEVELOPER-C Nemesio Zarco COBOL DEVELOPER Work Phone: [facility] Work Phone: Start: 06-12-2023 End: 06-12-2023 Patient encounter procedure COBOL DEVELOPER-C Nemesio Zarco COBOL DEVELOPER Work Phone: [facility] Work Phone: Start: 06-12-2023 End: 06-12-2023 Patient encounter procedure COBOL DEVELOPER-C Nemesio Zarco COBOL DEVELOPER Work Phone: [facility] Work Phone: Start: 06-08-2023 End: 06-08-2023 ambulatory NEMESIO ZARCO [facility] Start: 06-05-2023 End: 06-05-2023 Patient encounter procedure COBOL DEVELOPER-C Nemesio Zarco COBOL DEVELOPER Work Phone: [facility] Work Phone: Start: 05-30-2023 End: 05-30-2023 Patient encounter procedure COBOL DEVELOPER-C Nemesio Zarco COBOL DEVELOPER Work Phone: [facility] Work Phone: Start: 05-23-2023 End: 05-23-2023 Patient encounter procedure COBOL DEVELOPER-C Nemesio Zarco COBOL DEVELOPER Work Phone: [facility] Work Phone: Start: 05-11-2023 End: 05-11-2023 ambulatory NEMESIO ZARCO [facility] Start: 05-03-2023 End: 05-03-2023 Patient encounter procedure COBOL DEVELOPER-Lexus Zarco COBOL DEVELOPER Work Phone: [facility] Work Phone: Start: 05-03-2023 Non-patient / Non-visit COBOL DEVELOPER-Lexus Zarco COBOL DEVELOPER Work Phone: [facility] Work Phone: Start: 05-03-2023 End: 05-03-2023 ambulatory COBOL DEVELOPER-Lexus Zarco COBOL DEVELOPER Work Phone: [facility] Work Phone: Start: 05-03-2023 End: 05-03-2023 Patient encounter procedure COBOL DEVELOPER-Lexus Zarco COBOL DEVELOPER Work Phone: [facility] Work Phone: Start: 04-26-2023 End: 04-26-2023 ambulatory NEMESIO ZARCO [facility] Start: 04-10-2023 End: 04-11-2023 ambulatory NEMESIO ZARCO [facility] Start: 04-10-2023 End: 04-10-2023 Subsequent hospital visit by physician Jaylen Gracia MD Work Phone: [facility] Comment on above: Screening, , for malformation by ultrasound; Family history of congenital cardiac septal defect Start: 04-10-2023 End: 04-10-2023 [facility] Start: 04-05-2023 End: 04-05-2023 Patient encounter procedure COBOL DEVELOPER-Lexus Zarco COBOL DEVELOPER Work Phone: [facility] Work Phone: Start: 03-29-2023 End: 03-29-2023 ambulatory GUS HITCHCOCK [facility] Start: 03-24-2023 Registered Recurring COBOL DEVELOPER-Lexus Zarco COBOL DEVELOPER Work Phone: [facility] Work Phone: Start: 03-17-2023 End: 03-17-2023 ambulatory NEMESIO ZARCO [facility] Start: 03-16-2023 ambulatory MARY LOU Randall [facility] Start: 03-15-2023 End: 03-15-2023 Patient encounter procedure COBOL DEVELOPER-Lexus Zarco COBOL DEVELOPER Work Phone: [facility] Work Phone: Start: 03-07-2023 End: 03-07-2023 Patient encounter procedure COBOL DEVELOPER-C Nemesio Zarco COBOL DEVELOPER Work Phone: [facility] Work Phone: Start: 02-23-2023 End: 02-23-2023 Patient encounter procedure COBOL DEVELOPER-C Nemesio Zarco COBOL DEVELOPER Work Phone: [facility] Work Phone: Start: 02-23-2023 End: 02-23-2023 Patient encounter procedure COBOL DEVELOPER-C Nemesio Zarco COBOL DEVELOPER Work Phone: [facility] Work Phone: Start: 02-08-2023 Registered Recurring COBOL DEVELOPER-C Nemesio Zarco COBOL DEVELOPER Work Phone: [facility] Work Phone: Start: 02-07-2023 End: 02-07-2023 Patient encounter procedure COBOL DEVELOPER-C Nemesio Zarco COBOL DEVELOPER Work Phone: [facility] Work Phone: Start: 01-24-2023 End: 01-24-2023 ambulatory COBOL DEVELOPER-C Nemesio Zarco COBOL DEVELOPER Work Phone: [facility] Work Phone: Start: 01-24-2023 End: 01-24-2023 Patient encounter procedure COBOL DEVELOPER-C Nemesio Zarco COBOL DEVELOPER Work Phone: [facility] Start: 01-24-2023 End: 01-24-2023 Patient encounter procedure COBOL DEVELOPER-Lexus Zarco COBOL DEVELOPER Work Phone: [facility] Work Phone: Start: 01-04-2023 End: 01-04-2023 ambulatory [facility] Work Phone: Start: 01-04-2023 End: 01-04-2023 Patient encounter procedure [facility] Specimen Work Phone: Start: 01-06-2022 End: 01-06-2022 ambulatory [facility] Work Phone: Start: 01-06-2022 End: 01-06-2022 Patient encounter procedure [facility] Spec[facility] Start: 12-03-2018 Patient encounter status [facility] Start: 02-06-2018 End: 02-07-2018 Patient encounter procedure SUNSHINE RAMANAVARAPU Facility:[facility] Start: 01-30-2018 End: 01-31-2018 Patient encounter procedure SUNSHINE RAMANAVARAPU Facility:[facility] Start: 01-17-2018 End: 01-18-2018 Patient encounter procedure SUNSHINE RAMANAVARAPU Facility:[facility] Start: 01-02-2018 End: 01-03-2018 Patient encounter procedure SUNSHINE RAMANAVARAPU Facility:[facility] Procedures Date Procedure Procedure Detail Performing Clinician Start: 2023 Ultrasonography for biophysical profile without non-stress testing COBOL DEVELOPERJessica Zarco COBOL DEVELOPER Work Phone: Start: 06-22-2023 Ultrasonography for biophysical profile without non-stress testing WADE Zarco COBOL DEVELOPER Work Phone: Start: 06-19-2023 Ultrasonography for biophysical profile without non-stress testing COBOL DEVELOPERJessica Zarco COBOL DEVELOPER Work Phone: Start: 06-15-2023 Ultrasonography for biophysical profile without non-stress testing WADE Zarco COBOL DEVELOPER Work Phone: Start: 06-12-2023 Ultrasonography for biophysical profile without non-stress testing WADE Zarco [employer]OL DEVELOPER Work Phone: Start: 01-24-2023 Urine culture WADE Zarco NP Work Phone: Plan of Treatment Date Care Activity Detail Author Start: 08-03-2023 End: 08-03-2023 Professional / ancillary services management 08/03/2023 2:00 PM EDT Ancillary Procedure Visit [facility] [address], [address] [place] [address] [facility] [place] [facility] Start: 07-06-2023 End: 07-06-2023 Professional / ancillary services management 07/06/2023 2:00 PM EDT Ancillary Procedure Visit [facility] [place] [address], [address] [place] [address] [facility] [place] Start: 06-29-2023 Biophysical pr ofile panel [facility] Start: 06-29-2023 Ultrasonography for biophysical profile without non-stress testing Biophysical Prof W/O Non Stres [facility] Start: 06-08-2023 End: 06-08-2023 Professional / ancillary services management 06/08/2023 2:00 PM EDT Ancillary Procedure Visit [facility] [place] [address], [address] [place] [address] [facility] [place] Start: 05-11-2023 End: 05-11-2023 Professional / ancillary services management 05/11/2023 2:00 PM EDT Ancillary Procedure Visit [facility] [address], [address] [place], [place] [address] [facility] [place] Start: 04-26-2023 End: 04-26-2023 Patient encounter procedure 04/26/2023 8:00 AM EST Office Visit [facility] [address] [place], [place] [id number] Jaylen Gracia MD [address] [facility] [address] [place] [address] [place] [address] [facility] Start: 01-24-2023 [facility] Start: 01-24-2023 Patient referral [facility] Work Phone: Start: 10-21-2022 COVID-19 (2022-03 4 season) COVID-19 ( season) [facility] Start: 2005 Microscopic observat ion [Identifier] in Cervix by Cyto stain Pap Smear [facility] Start: 06-27-2003 Hepatitis B (1 of 3 - 19+ 3-dose series) Hepatitis B (1 of 3 - 19+ 3-dose series) [facility] Start: 2000 MenB (1 of 2 - MenB 2-Dose Series Bexsero) MenB (1 of 2 - MenB 2-Dose Series Bexsero) [facility] Start: 1997 Varicella (1 of 2 - 13+ 2-dose series) Varicella (1 of 2 - 13+ 2-dose series) [facility] Start: 06-27-1991 Tetanus Diphtheria a nd Pertussis Vaccines (1 - Tdap) Tetanus Diphtheria and Pertussis Vaccines (1 - Tdap) [facility] Start: 1985 MMR (1 of 1 - Standa rd series) MMR (1 of 1 - Standard series) [facility] Start: 1984 Hemoglobin A1c/Hemoglobin.total in Blood HbA1c [facility] Biophysical pr ofile panel US [facility] Glucose [Mass/volume ] in Serum or Plasma --1 hour post 50 g glucose PO [facility] End: 04-10-2023 Panorama Test: Chromosomes 13, 18, 21, X&Y, Triploidy, Optional 22Q 11.2 Deletion Panorama Test: Chromosomes 13, 18, 21, X&Y, Triploidy, Optional 22Q 11.2 Deletion Lab Timed Screening, , for malformation by ultrasound Family history of congenital cardiac septal defect 1 Occurrences starting 04/10/2023 until 04/10/2023 [facility] Work Phone: Comment on above: 1 Occurrences starti ng 04/10/2023 until 04/10/2023 Patient referral [facility] Work Phone: Ultrasound scan for growth [facility] Immunizations Immunization Date Immunization Notes Care Provider Fa cility 12-21-2021 influenza, injectabl e, quadrivalent, preservative free [facility] 12-21-2021 influenza, seasonal, injectable [facility] Work Phone: Payers Date Payer Category Payer Self-pay [id number] 2024 Unknown [id number] 2008 Unknown 1984 Unknown [id number] 2.16.8 [id number] 1984 Unknown [id number] 2.16.8 [id number] 1984 Unknown [id number] 2.16.8 [id number] 1984 Unknown [id number] 2.16.8 [id number] 1984 Unknown [id number] 2.16 [id number] 1984 Unknown [id number] 2. 840.1.842106.3.579.2. 1984 Unknown [id number] 2.0.1.417787.3.579.2 1984 Unknown [id number] 2.16 840.1.292217.3.579.2. 1984 Unknown [id number] 2.16 840.1.363895.3.579.2 1984 Unknown [id number] 2.16 840.1.841581.3.579.2. 1984 Unknown [id number] 2.16 840.1.514171.3.579.2 1984 Unknown [id number] 2.16. [id number] 1984 Unknown [id number] 2.16. [id number] 1984 Unknown [id number] 2.16. [id number] Unknown [facility] [id number] Unknown [id number] 2.16.8 [id number] Unknown [id number] 2.16.8 [id number] Unknown [id number] 2.16.8 [id number] Social History Date Type Detail Facility Tobacco smoking stat [facility] Unknown if ever smoked [facility] Work Phone: Start: 1985 Sex Assigned At Female [facility] Start: 01-24-2023 End: 06-05-2023 Tobacco smoking status [facility] Unknown if ever smoked [facility] Start[facility] 03[facility]13-[facility]23 [facility] Start: 03-13-2023 Tobacco use and exposure Smokeless tobacco non-user [facility] Start: 04-10-2023 Alcoholic beverage intake Ex-drinker (finding) [facility] Start: 04-10-2023 History of Social function [facility] Start: 04-10-2023 Tobacco use panel [facility] Start: 11-04-2022 [facility] Start: 1985 Sex assigned at Not on file A [facility] Medical Equipment Procedure Code Equipment Code Equipment Origin al Text Equipment Identifier Dates Start: 02-23-2023 Blood Sugar Diagnostic (True Metrix Glucose Test Strip) strip Start: 02-23-2023 Pen Needle, Diab etic (Bd Ultra-Fine Lian Pen Needle) 32 gauge x 5/32 needle Start: 03-03-2023 Blood Sugar Diagnostic (True Metrix Glucose Test Strip) strip Start: 02-23-2023 Pen Needle, Diab etic (Bd Ultra-Fine Lian Pen Needle) 32 gauge x 5/32 needle Start: 03-03-2023 Blood Sugar Diagnostic (True Metrix Glucose Test Strip) strip Start: 02-23-2023 Pen Needle, Diab etic (Bd Ultra-Fine Lian Pen Needle) 32 gauge x 5/32 needle Start: 03-03-2023 Blood Sugar Diagnostic (True Metrix Glucose Test Strip) strip Start: 02-23-2023 Pen Needle, Diab etic (Bd Ultra-Fine Lian Pen Needle) 32 gauge x 5/32 needle Start: 03-03-2023 Blood Sugar Diagnostic (True Metrix Glucose Test Strip) strip Start: 02-23-2023 Pen Needle, Diab etic (Bd Ultra-Fine Lian Pen Needle) 32 gauge x 5/32 needle Start: 03-03-2023 Blood Sugar Diagnostic (True Metrix Glucose Test Strip) strip Start: 02-23-2023 Pen Needle, Diab etic (Bd Ultra-Fine Lian Pen Needle) 32 gauge x 5/32 needle Start: 03-03-2023 Clinical Note 01-24-2023 Note Date & Type Note Facility 01-24-2023 [facility] Pap Smear Specimen Adequacy January 24, 2023 11:59pm Comment . Satisfactory for evaluation. Endocervical and/or squamous metaplasticcells (endocervical component) are present. Comment on above: Satisfactory for vincenzo luation. Endocervical and/or squamous metaplasticcells (endocervical component) are present. Clinical Note 01-24-2023 Note Date & Type Note Facility 01-24-2023 [facility] Pap Smear Specimen Adequacy January 25, 2023 12:59am Comment . Satisfactory for evaluation. Endocervical and/or squamous metaplasticcells (endocervical component) are present. Comment on above: Satisfactory for vincenzo luation. Endocervical and/or squamous metaplasticcells (endocervical component) are present. Evaluation note Note Date & Type Note Facility Evaluation note No assessment information availa ble [facility] Work Phone: Evaluation note Note Date & Type Note Facility Evaluation note Diagnosis Onset Date Tachycardia acute Hypertension chronic FH: breast cancer acute FH: congenital heart problem acute Hypertriglyceridemia acute Hypothyroidism acute Morbid obesity with BMI of 50.0-59.9, adult acute acute Supervision of high-risk acute Tachycardia acute Hypertension [facility] Work Phone: Evaluation note Note Date & Type Note Facility Evaluation note Diagnosis Screening, , for malformation by ultrasound Encounter for routine screening for malformation using ultrasonics Family history of congenital cardiac septal defect Family history of other cardiovascular diseases documented in this encounter [facility] Evaluation note Note Date & Type Note Facility Evaluation note Diagnosis Onset Date Tachycardia acute Hypertension chronic FH: breast cancer acute FH: congenital heart problem acute Hypertriglyceridemia acute acute Supervision of high-risk acute Tachycardia acute Hypertension chronic Hypothyroidism chronic Morbid obesity with BMI of 50.0-59.9, adult chronic FH: breast cancer acute FH: congenital heart problem acute Hypertriglyceridemia acute Hypokalemia acute acute Supervision of high-risk acute Tachycardia acute Type 2 diabetes mellitus aff ecting in first trimester, antepartum acute Hypertension chronic Hypothyroidism chronic Morbid obesity with BMI of 50.0-59.9, adult chronic 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 Hypothyroidism chronic Morbid obesity with BMI of 50.0-59.9, adult chronic AMA (advanced maternal age) primigravida 35+ acute FH: breast cancer acute FH: congenital heart problem acute Hypertriglyceridemia acute Hypokalemia acute acute Supervision of high-risk acute Tachycardia acute Type 2 diabetes mellitus aff ecting in first trimester, antepartum acute Hypertension chronic Hypothyroidism chronic Morbid obesity with BMI of 50.0-59.9, adult chronic AMA (advanced maternal age) primigravida 35+ acute FH: breast cancer acute FH: congenital heart problem acute Hypertriglyceridemia acute Hypokalemia acute acute Supervision of high-risk acute Tachycardia acute Type 2 diabetes mellitus aff ecting in first trimester, antepartum acute 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 Hypertension chronic Hypothyroidism chronic Morbid obesity with BMI of 50.0-59.9, adult chronic Tachycardia acute AMA (advanced maternal age) primigravida 35+ acute FH: breast cancer acute FH: congenital heart problem acute Hypertriglyceridemia acute Hypokalemia acute acute 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 acute Supervision of high-risk acute Tachycardia acute Type 2 diabetes mellitus aff ecting in first trimester, antepartum acute 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 Hypertension chronic Hypothyroidism chronic Morbid obesity with BMI of 50.0-59.9, adult chronic AMA (advanced maternal age) primigravida 35+ acute FH: breast cancer acute FH: congenital heart problem acute Hypertriglyceridemia acute Hypokalemia acute acute 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 acute Supervision of high-risk acute Tachycardia acute Type 2 diabetes mellitus aff ecting in first trimester, antepartum acute 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 Hypertension chronic Hypothyroidism chronic Morbid obesity with BMI of 50.0-59.9, adult chronic [facility] Work Phone: Evaluation note Note Date & Type Note Facility Evaluation note Diagnosis Onset Date 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 Hypothyroidism chronic Morbid obesity with BMI of 50.0-59.9, adult chronic AMA (advanced maternal age) primigravida 35+ acute FH: breast cancer acute FH: congenital heart problem acute Hypertriglyceridemia acute Hypokalemia acute acute Supervision of high-risk acute Tachycardia acute Type 2 diabetes mellitus aff ecting in first trimester, antepartum acute Hypertension chronic Hypothyroidism chronic Morbid obesity with BMI of 50.0-59.9, adult chronic AMA (advanced maternal age) primigravida 35+ acute FH: breast cancer acute FH: congenital heart problem acute Hypertriglyceridemia acute Hypokalemia acute acute Supervision of high-risk acute Tachycardia acute Type 2 diabetes mellitus aff ecting in first trimester, antepartum acute 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 Hypertension chronic Hypothyroidism chronic Morbid obesity with BMI of 50.0-59.9, adult chronic Tachycardia acute AMA (advanced maternal age) primigravida 35+ acute FH: breast cancer acute FH: congenital heart problem acute Hypertriglyceridemia acute Hypokalemia acute acute 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 acute Supervision of high-risk acute Tachycardia acute Type 2 diabetes mellitus aff ecting in first trimester, antepartum acute 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 Hypertension chronic Hypothyroidism chronic Morbid obesity with BMI of 50.0-59.9, adult chronic AMA (advanced maternal age) primigravida 35+ acute FH: breast cancer acute FH: congenital heart problem acute Hypertriglyceridemia acute Hypokalemia acute acute 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 acute Supervision of high-risk acute Tachycardia acute Type 2 diabetes mellitus aff ecting in first trimester, antepartum acute 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 Hypertension chronic Hypothyroidism chronic Morbid obesity with BMI of 50.0-59.9, adult chronic AMA (advanced maternal age) primigravida 35+ acute FH: breast cancer acute FH: congenital heart problem acute Hypertriglyceridemia acute Hypokalemia acute acute 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 acute Supervision of high-risk acute Tachycardia acute Type 2 diabetes mellitus aff ecting in first trimester, antepartum acute 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 Hypertension chronic Hypothyroidism chronic Morbid obesity with BMI of 50.0-59.9, adult chronic 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 AMA (advanced maternal age) primigravida 35+ acute FH: breast cancer acute FH: congenital heart problem acute Hypertriglyceridemia acute Hypokalemia acute acute 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 acute Supervision of high-risk acute Tachycardia acute Type 2 diabetes mellitus aff ecting in first trimester, antepartum acute 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 Hypertension chronic Hypothyroidism chronic Morbid obesity with BMI of 50.0-59.9, adult chronic Skin pain acute Skin tags, multiple acquired acute AMA (advanced maternal age) primigravida 35+ acute FH: breast cancer acute FH: congenital heart problem acute Hypertriglyceridemia acute Hypokalemia acute acute 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 acute Supervision of high-risk acute Tachycardia acute Type 2 diabetes mellitus aff ecting in first trimester, antepartum acute 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 Hypertension chronic Hypothyroidism chronic Morbid obesity with BMI of 50.0-59.9, adult chronic [facility] Work Phone: Evaluation note Note Date & Type Note Facility Evaluation note Diagnosis Onset Date 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 Hypothyroidism chronic Morbid obesity with BMI of 50.0-59.9, adult chronic AMA (advanced maternal age) primigravida 35+ acute FH: breast cancer acute FH: congenital heart problem acute Hypertriglyceridemia acute Hypokalemia acute acute Supervision of high-risk acute Tachycardia acute Type 2 diabetes mellitus aff ecting in first trimester, antepartum acute Hypertension chronic Hypothyroidism chronic Morbid obesity with BMI of 50.0-59.9, adult chronic AMA (advanced maternal age) primigravida 35+ acute FH: breast cancer acute FH: congenital heart problem acute Hypertriglyceridemia acute Hypokalemia acute acute Supervision of high-risk acute Tachycardia acute Type 2 diabetes mellitus aff ecting in first trimester, antepartum acute 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 Hypertension chronic Hypothyroidism chronic Morbid obesity with BMI of 50.0-59.9, adult chronic Tachycardia acute AMA (advanced maternal age) primigravida 35+ acute FH: breast cancer acute FH: congenital heart problem acute Hypertriglyceridemia acute Hypokalemia acute acute 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 acute Supervision of high-risk acute Tachycardia acute Type 2 diabetes mellitus aff ecting in first trimester, antepartum acute 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 Hypertension chronic Hypothyroidism chronic Morbid obesity with BMI of 50.0-59.9, adult chronic AMA (advanced maternal age) primigravida 35+ acute FH: breast cancer acute FH: congenital heart problem acute Hypertriglyceridemia acute Hypokalemia acute acute 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 acute Supervision of high-risk acute Tachycardia acute Type 2 diabetes mellitus aff ecting in first trimester, antepartum acute 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 Hypertension chronic Hypothyroidism chronic Morbid obesity with BMI of 50.0-59.9, adult chronic AMA (advanced maternal age) primigravida 35+ acute FH: breast cancer acute FH: congenital heart problem acute Hypertriglyceridemia acute Hypokalemia acute acute 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 acute Supervision of high-risk acute Tachycardia acute Type 2 diabetes mellitus aff ecting in first trimester, antepartum acute 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 Hypertension chronic Hypothyroidism chronic Morbid obesity with BMI of 50.0-59.9, adult chronic 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 AMA (advanced maternal age) primigravida 35+ acute FH: breast cancer acute FH: congenital heart problem acute Hypertriglyceridemia acute Hypokalemia acute acute 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 acute Supervision of high-risk acute Tachycardia acute Type 2 diabetes mellitus aff ecting in first trimester, antepartum acute 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 Hypertension chronic Hypothyroidism chronic Morbid obesity with BMI of 50.0-59.9, adult chronic Skin pain acute Skin tags, multiple acquired acute AMA (advanced maternal age) primigravida 35+ acute FH: breast cancer acute FH: congenital heart problem acute Hypertriglyceridemia acute Hypokalemia acute acute 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 acute Supervision of high-risk acute Tachycardia acute Type 2 diabetes mellitus aff ecting in first trimester, antepartum acute 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 Hypertension chronic Hypothyroidism chronic Morbid obesity with BMI of 50.0-59.9, adult chronic AMA (advanced maternal age) primigravida 35+ acute FH: breast cancer acute FH: congenital heart problem acute Hypertriglyceridemia acute Hypokalemia acute acute 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 acute Supervision of high-risk acute Tachycardia acute Type 2 diabetes mellitus aff ecting in first trimester, antepartum acute 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 Hypertension chronic Hypothyroidism chronic Morbid obesity with BMI of 50.0-59.9, adult chronic [place] [facility] Work Phone: Evaluation note Note Date & Type Note Facility Evaluation note Diagnosis Onset Date AMA (advanced maternal age) primigravida 35+ acute FH: breast cancer acute FH: congenital heart problem acute Hypertriglyceridemia acute Hypokalemia acute acute Supervision of high-risk acute Tachycardia acute Type 2 diabetes mellitus aff ecting in first trimester, antepartum acute 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 Hypertension chronic Hypothyroidism chronic Morbid obesity with BMI of 50.0-59.9, adult chronic Tachycardia acute AMA (advanced maternal age) primigravida 35+ acute FH: breast cancer acute FH: congenital heart problem acute Hypertriglyceridemia acute Hypokalemia acute acute 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 acute Supervision of high-risk acute Tachycardia acute Type 2 diabetes mellitus aff ecting in first trimester, antepartum acute 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 Hypertension chronic Hypothyroidism chronic Morbid obesity with BMI of 50.0-59.9, adult chronic AMA (advanced maternal age) primigravida 35+ acute FH: breast cancer acute FH: congenital heart problem acute Hypertriglyceridemia acute Hypokalemia acute acute 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 acute Supervision of high-risk acute Tachycardia acute Type 2 diabetes mellitus aff ecting in first trimester, antepartum acute 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 Hypertension chronic Hypothyroidism chronic Morbid obesity with BMI of 50.0-59.9, adult chronic AMA (advanced maternal age) primigravida 35+ acute FH: breast cancer acute FH: congenital heart problem acute Hypertriglyceridemia acute Hypokalemia acute acute 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 acute Supervision of high-risk acute Tachycardia acute Type 2 diabetes mellitus aff ecting in first trimester, antepartum acute 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 Hypertension chronic Hypothyroidism chronic Morbid obesity with BMI of 50.0-59.9, adult chronic 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 AMA (advanced maternal age) primigravida 35+ acute FH: breast cancer acute FH: congenital heart problem acute Hypertriglyceridemia acute Hypokalemia acute acute 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 acute Supervision of high-risk acute Tachycardia acute Type 2 diabetes mellitus aff ecting in first trimester, antepartum acute 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 Hypertension chronic Hypothyroidism chronic Morbid obesity with BMI of 50.0-59.9, adult chronic Skin pain acute Skin tags, multiple acquired acute AMA (advanced maternal age) primigravida 35+ acute FH: breast cancer acute FH: congenital heart problem acute Hypertriglyceridemia acute Hypokalemia acute acute 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 acute Supervision of high-risk acute Tachycardia acute Type 2 diabetes mellitus aff ecting in first trimester, antepartum acute 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 Hypertension chronic Hypothyroidism chronic Morbid obesity with BMI of 50.0-59.9, adult chronic AMA (advanced maternal age) primigravida 35+ acute FH: breast cancer acute FH: congenital heart problem acute Hypertriglyceridemia acute Hypokalemia acute acute 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 acute Supervision of high-risk acute Tachycardia acute Type 2 diabetes mellitus aff ecting in first trimester, antepartum acute 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 Hypertension chronic Hypothyroidism chronic Morbid obesity with BMI of 50.0-59.9, adult chronic AMA (advanced maternal age) primigravida 35+ acute FH: breast cancer acute FH: congenital heart problem acute Hypertriglyceridemia acute Hypokalemia acute acute 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 acute Supervision of high-risk acute Tachycardia acute Type 2 diabetes mellitus aff ecting in first trimester, antepartum acute 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 Hypertension chronic Hypothyroidism chronic Morbid obesity with BMI of 50.0-59.9, adult chronic [facility] Work Phone: Summary Purpose Family History No Family History Records Found Relationship Condition Age at Onset Recorded Date/T coleen Not Specified Diabetes mellitus Unknown Malignant neoplasm of breast Unknown Hypertension Unknown Relationship Condition Age at Onset Recorded Date/T coleen Not Specified Diabetes mellitus Unknown Hypertension Unknown grandmother Malignant neoplasm of breast 60 aunt Malignant neoplasm of breast 60 Advance Directives No Advanced Directives Records FoundNo Advanced Directives Records FoundNo Advanced Directives Records Found Chief Complaint and Reason for Visit Chief Complaint Annual wellness exam PE Chief Complaint Annual wellness exam /Labs Chief Complaint Annual wellness exam /Labs Hypertension F/up New OB, first , LMP 11/18/22, HTN Reason for Visit Tachycardia Hypertension FH: breast cancer FH: congenital heart problem Hypertriglyceridemia Hypothyroidism Morbid obesity with BMI of 50.0-59.9, adult Supervision of high-risk Tachycardia Hypertension Chief Complaint Hypertension F/up New OB, first , LMP 11/18/22, HTN 15 WK OB Gestational Diabetes 17 WK OB, review BP *ok if late per KW 19 WK OB TACHYCARDIA / HTN ([facility]) 23 WK OB ARRYTHMIA-OTHER 27 WK OB Amb Documentation Reason for Visit Tachycardia Hypertension FH: breast cancer FH: congenital heart problem Hypertriglyceridemia Supervision of high-risk Tachycardia Hypertension Hypothyroidism Morbid obesity with BMI of 50.0-59.9, adult FH: breast cancer FH: congenital heart problem Hypertriglyceridemia Hypokalemia Supervision of high-risk Tachycardia Type 2 diabetes mellitus affecting in first trimester, antepartum Hypertension Hypothyroidism Morbid obesity with BMI of 50.0-59.9, adult 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 trimester Hypothyroidism Morbid obesity with BMI of 50.0-59.9, adult AMA (advanced maternal age) primigravida 35+ FH: breast cancer FH: congenital heart problem Hypertriglyceridemia Hypokalemia Supervision of high-risk Tachycardia Type 2 diabetes mellitus affecting in first trimester, antepartum Hypertension Hypothyroidism Morbid obesity with BMI of 50.0-59.9, adult AMA (advanced maternal age) primigravida 35+ FH: breast cancer FH: congenital heart problem Hypertriglyceridemia Hypokalemia Supervision of high-risk Tachycardia Type 2 diabetes mellitus affecting in first trimester, antepartum 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 trimester Hypertension Hypothyroidism Morbid obesity with BMI of 50.0-59.9, adult Tachycardia AMA (advanced maternal age) primigravida 35+ FH: breast cancer FH: congenital heart problem Hypertriglyceridemia Hypokalemia 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 Supervision of high-risk Tachycardia Type 2 diabetes mellitus affecting in first trimester, antepartum 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 trimester Hypertension Hypothyroidism Morbid obesity with BMI of 50.0-59.9, adult AMA (advanced maternal age) primigravida 35+ FH: breast cancer FH: congenital heart problem Hypertriglyceridemia Hypokalemia 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 Supervision of high-risk Tachycardia Type 2 diabetes mellitus affecting in first trimester, antepartum 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 trimester Hypertension Hypothyroidism Morbid obesity with BMI of 50.0-59.9, adult Chief Complaint Gestational Diabetes 17 WK OB, review BP *ok if late per KW 19 WK OB TACHYCARDIA / HTN ([facility]) 23 WK OB ARRYTHMIA-OTHER 27 WK OB Amb Documentation 30 WK OB 3 M FU 32 WK OB I&D Skin tag Removal 33 WK OB/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 Reason for Visit Diabetes mellitus af fecting in second trimester Hypothyroidism Morbid obesity with BMI of 50.0-59.9, adult AMA (advanced maternal age) primigravida 35+ FH: breast cancer FH: congenital heart problem Hypertriglyceridemia Hypokalemia Supervision of high-risk Tachycardia Type 2 diabetes mellitus affecting in first trimester, antepartum Hypertension Hypothyroidism Morbid obesity with BMI of 50.0-59.9, adult AMA (advanced maternal age) primigravida 35+ FH: breast cancer FH: congenital heart problem Hypertriglyceridemia Hypokalemia Supervision of high-risk Tachycardia Type 2 diabetes mellitus affecting in first trimester, antepartum 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 trimester Hypertension Hypothyroidism Morbid obesity with BMI of 50.0-59.9, adult Tachycardia AMA (advanced maternal age) primigravida 35+ FH: breast cancer FH: congenital heart problem Hypertriglyceridemia Hypokalemia 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 Supervision of high-risk Tachycardia Type 2 diabetes mellitus affecting in first trimester, antepartum 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 trimester Hypertension Hypothyroidism Morbid obesity with BMI of 50.0-59.9, adult AMA (advanced maternal age) primigravida 35+ FH: breast cancer FH: congenital heart problem Hypertriglyceridemia Hypokalemia 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 Supervision of high-risk Tachycardia Type 2 diabetes mellitus affecting in first trimester, antepartum 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 trimester Hypertension Hypothyroidism Morbid obesity with BMI of 50.0-59.9, adult AMA (advanced maternal age) primigravida 35+ FH: breast cancer FH: congenital heart problem Hypertriglyceridemia Hypokalemia 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 Supervision of high-risk Tachycardia Type 2 diabetes mellitus affecting in first trimester, antepartum 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 trimester Hypertension Hypothyroidism Morbid obesity with BMI of 50.0-59.9, adult 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 trimester AMA (advanced maternal age) primigravida 35+ FH: breast cancer FH: congenital heart problem Hypertriglyceridemia Hypokalemia 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 Supervision of high-risk Tachycardia Type 2 diabetes mellitus affecting in first trimester, antepartum 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 trimester Hypertension Hypothyroidism Morbid obesity with BMI of 50.0-59.9, adult Skin pain Skin tags, multiple acquired AMA (advanced maternal age) primigravida 35+ FH: breast cancer FH: congenital heart problem Hypertriglyceridemia Hypokalemia 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 Supervision of high-risk Tachycardia Type 2 diabetes mellitus affecting in first trimester, antepartum 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 trimester Hypertension Hypothyroidism Morbid obesity with BMI of 50.0-59.9, adult Chief Complaint Gestational Diabetes 17 WK OB, review BP *ok if late per KW 19 WK OB TACHYCARDIA / HTN ([facility]) 23 WK OB ARRYTHMIA-OTHER 27 WK OB Amb Documentation 30 WK OB 3 M FU 32 WK OB I&D Skin tag Removal 33 WK OB/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 34 WK OB CONGENITAL ABSENCE Reason for Visit Diabetes mellitus af fecting in second trimester Hypothyroidism Morbid obesity with BMI of 50.0-59.9, adult AMA (advanced maternal age) primigravida 35+ FH: breast cancer FH: congenital heart problem Hypertriglyceridemia Hypokalemia Supervision of high-risk Tachycardia Type 2 diabetes mellitus affecting in first trimester, antepartum Hypertension Hypothyroidism Morbid obesity with BMI of 50.0-59.9, adult AMA (advanced maternal age) primigravida 35+ FH: breast cancer FH: congenital heart problem Hypertriglyceridemia Hypokalemia Supervision of high-risk Tachycardia Type 2 diabetes mellitus affecting in first trimester, antepartum 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 trimester Hypertension Hypothyroidism Morbid obesity with BMI of 50.0-59.9, adult Tachycardia AMA (advanced maternal age) primigravida 35+ FH: breast cancer FH: congenital heart problem Hypertriglyceridemia Hypokalemia 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 Supervision of high-risk Tachycardia Type 2 diabetes mellitus affecting in first trimester, antepartum 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 trimester Hypertension Hypothyroidism Morbid obesity with BMI of 50.0-59.9, adult AMA (advanced maternal age) primigravida 35+ FH: breast cancer FH: congenital heart problem Hypertriglyceridemia Hypokalemia 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 Supervision of high-risk Tachycardia Type 2 diabetes mellitus affecting in first trimester, antepartum 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 trimester Hypertension Hypothyroidism Morbid obesity with BMI of 50.0-59.9, adult AMA (advanced maternal age) primigravida 35+ FH: breast cancer FH: congenital heart problem Hypertriglyceridemia Hypokalemia 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 Supervision of high-risk Tachycardia Type 2 diabetes mellitus affecting in first trimester, antepartum 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 trimester Hypertension Hypothyroidism Morbid obesity with BMI of 50.0-59.9, adult 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 trimester AMA (advanced maternal age) primigravida 35+ FH: breast cancer FH: congenital heart problem Hypertriglyceridemia Hypokalemia 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 Supervision of high-risk Tachycardia Type 2 diabetes mellitus affecting in first trimester, antepartum 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 trimester Hypertension Hypothyroidism Morbid obesity with BMI of 50.0-59.9, adult Skin pain Skin tags, multiple acquired AMA (advanced maternal age) primigravida 35+ FH: breast cancer FH: congenital heart problem Hypertriglyceridemia Hypokalemia 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 Supervision of high-risk Tachycardia Type 2 diabetes mellitus affecting in first trimester, antepartum 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 trimester Hypertension Hypothyroidism Morbid obesity with BMI of 50.0-59.9, adult AMA (advanced maternal age) primigravida 35+ FH: breast cancer FH: congenital heart problem Hypertriglyceridemia Hypokalemia 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 Supervision of high-risk Tachycardia Type 2 diabetes mellitus affecting in first trimester, antepartum 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 trimester Hypertension Hypothyroidism Morbid obesity with BMI of 50.0-59.9, adult Chief Complaint Gestational Diabetes 17 WK OB, review BP *ok if late per KW 19 WK OB TACHYCARDIA / HTN ([facility]) 23 WK OB ARRYTHMIA-OTHER 27 WK OB Amb Documentation 30 WK OB 3 M FU 32 WK OB I&D Skin tag Removal 33 WK OB/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 34 WK OB CONGENITAL ABSENCE CONGENITAL ABSENCE Reason for Visit Diabetes mellitus af fecting in second trimester Hypothyroidism Morbid obesity with BMI of 50.0-59.9, adult AMA (advanced maternal age) primigravida 35+ FH: breast cancer FH: congenital heart problem Hypertriglyceridemia Hypokalemia Supervision of high-risk Tachycardia Type 2 diabetes mellitus affecting in first trimester, antepartum Hypertension Hypothyroidism Morbid obesity with BMI of 50.0-59.9, adult AMA (advanced maternal age) primigravida 35+ FH: breast cancer FH: congenital heart problem Hypertriglyceridemia Hypokalemia Supervision of high-risk Tachycardia Type 2 diabetes mellitus affecting in first trimester, antepartum 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 trimester Hypertension Hypothyroidism Morbid obesity with BMI of 50.0-59.9, adult Tachycardia AMA (advanced maternal age) primigravida 35+ FH: breast cancer FH: congenital heart problem Hypertriglyceridemia Hypokalemia 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 Supervision of high-risk Tachycardia Type 2 diabetes mellitus affecting in first trimester, antepartum 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 trimester Hypertension Hypothyroidism Morbid obesity with BMI of 50.0-59.9, adult AMA (advanced maternal age) primigravida 35+ FH: breast cancer FH: congenital heart problem Hypertriglyceridemia Hypokalemia 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 Supervision of high-risk Tachycardia Type 2 diabetes mellitus affecting in first trimester, antepartum 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 trimester Hypertension Hypothyroidism Morbid obesity with BMI of 50.0-59.9, adult AMA (advanced maternal age) primigravida 35+ FH: breast cancer FH: congenital heart problem Hypertriglyceridemia Hypokalemia 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 Supervision of high-risk Tachycardia Type 2 diabetes mellitus affecting in first trimester, antepartum 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 trimester Hypertension Hypothyroidism Morbid obesity with BMI of 50.0-59.9, adult 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 trimester AMA (advanced maternal age) primigravida 35+ FH: breast cancer FH: congenital heart problem Hypertriglyceridemia Hypokalemia 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 Supervision of high-risk Tachycardia Type 2 diabetes mellitus affecting in first trimester, antepartum 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 trimester Hypertension Hypothyroidism Morbid obesity with BMI of 50.0-59.9, adult Skin pain Skin tags, multiple acquired AMA (advanced maternal age) primigravida 35+ FH: breast cancer FH: congenital heart problem Hypertriglyceridemia Hypokalemia 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 Supervision of high-risk Tachycardia Type 2 diabetes mellitus affecting in first trimester, antepartum 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 trimester Hypertension Hypothyroidism Morbid obesity with BMI of 50.0-59.9, adult AMA (advanced maternal age) primigravida 35+ FH: breast cancer FH: congenital heart problem Hypertriglyceridemia Hypokalemia 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 Supervision of high-risk Tachycardia Type 2 diabetes mellitus affecting in first trimester, antepartum 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 trimester Hypertension Hypothyroidism Morbid obesity with BMI of 50.0-59.9, adult Chief Complaint 19 WK OB TACHYCARDIA / HTN ([facility]) 23 WK OB ARRYTHMIA-OTHER 27 WK OB Amb Documentation 30 WK OB 3 M FU 32 WK OB I&D Skin tag Removal 33 WK OB/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 34 WK OB CONGENITAL ABSENCE CONGENITAL ABSENCE 35 WK OB CONGENITAL ABSENCE Reason for Visit AMA (advanced matern al age) primigravida 35+ FH: breast cancer FH: congenital heart problem Hypertriglyceridemia Hypokalemia Supervision of high-risk Tachycardia Type 2 diabetes mellitus affecting in first trimester, antepartum 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 trimester Hypertension Hypothyroidism Morbid obesity with BMI of 50.0-59.9, adult Tachycardia AMA (advanced maternal age) primigravida 35+ FH: breast cancer FH: congenital heart problem Hypertriglyceridemia Hypokalemia 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 Supervision of high-risk Tachycardia Type 2 diabetes mellitus affecting in first trimester, antepartum 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 trimester Hypertension Hypothyroidism Morbid obesity with BMI of 50.0-59.9, adult AMA (advanced maternal age) primigravida 35+ FH: breast cancer FH: congenital heart problem Hypertriglyceridemia Hypokalemia 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 Supervision of high-risk Tachycardia Type 2 diabetes mellitus affecting in first trimester, antepartum 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 trimester Hypertension Hypothyroidism Morbid obesity with BMI of 50.0-59.9, adult AMA (advanced maternal age) primigravida 35+ FH: breast cancer FH: congenital heart problem Hypertriglyceridemia Hypokalemia 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 Supervision of high-risk Tachycardia Type 2 diabetes mellitus affecting in first trimester, antepartum 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 trimester Hypertension Hypothyroidism Morbid obesity with BMI of 50.0-59.9, adult 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 trimester AMA (advanced maternal age) primigravida 35+ FH: breast cancer FH: congenital heart problem Hypertriglyceridemia Hypokalemia 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 Supervision of high-risk Tachycardia Type 2 diabetes mellitus affecting in first trimester, antepartum 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 trimester Hypertension Hypothyroidism Morbid obesity with BMI of 50.0-59.9, adult Skin pain Skin tags, multiple acquired AMA (advanced maternal age) primigravida 35+ FH: breast cancer FH: congenital heart problem Hypertriglyceridemia Hypokalemia 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 Supervision of high-risk Tachycardia Type 2 diabetes mellitus affecting in first trimester, antepartum 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 trimester Hypertension Hypothyroidism Morbid obesity with BMI of 50.0-59.9, adult AMA (advanced maternal age) primigravida 35+ FH: breast cancer FH: congenital heart problem Hypertriglyceridemia Hypokalemia 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 Supervision of high-risk Tachycardia Type 2 diabetes mellitus affecting in first trimester, antepartum 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 trimester Hypertension Hypothyroidism Morbid obesity with BMI of 50.0-59.9, adult AMA (advanced maternal age) primigravida 35+ FH: breast cancer FH: congenital heart problem Hypertriglyceridemia Hypokalemia 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 Supervision of high-risk Tachycardia Type 2 diabetes mellitus affecting in first trimester, antepartum 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 trimester Hypertension Hypothyroidism Morbid obesity with BMI of 50.0-59.9, adult Chief Complaint 19 WK OB TACHYCARDIA / HTN ([place]) 23 WK OB ARRYTHMIA-OTHER 27 WK OB Amb Documentation 30 WK OB 3 M FU 32 WK OB I&D Skin tag Removal 33 WK OB/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 34 WK OB CONGENITAL ABSENCE CONGENITAL ABSENCE 35 WK OB CONGENITAL ABSENCE CONGENITAL ABSENCE Reason for Visit AMA (advanced matern al age) primigravida 35+ FH: breast cancer FH: congenital heart problem Hypertriglyceridemia Hypokalemia Supervision of high-risk Tachycardia Type 2 diabetes mellitus affecting in first trimester, antepartum 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 trimester Hypertension Hypothyroidism Morbid obesity with BMI of 50.0-59.9, adult Tachycardia AMA (advanced maternal age) primigravida 35+ FH: breast cancer FH: congenital heart problem Hypertriglyceridemia Hypokalemia 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 Supervision of high-risk Tachycardia Type 2 diabetes mellitus affecting in first trimester, antepartum 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 trimester Hypertension Hypothyroidism Morbid obesity with BMI of 50.0-59.9, adult AMA (advanced maternal age) primigravida 35+ FH: breast cancer FH: congenital heart problem Hypertriglyceridemia Hypokalemia 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 Supervision of high-risk Tachycardia Type 2 diabetes mellitus affecting in first trimester, antepartum 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 trimester Hypertension Hypothyroidism Morbid obesity with BMI of 50.0-59.9, adult AMA (advanced maternal age) primigravida 35+ FH: breast cancer FH: congenital heart problem Hypertriglyceridemia Hypokalemia 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 Supervision of high-risk Tachycardia Type 2 diabetes mellitus affecting in first trimester, antepartum 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 trimester Hypertension Hypothyroidism Morbid obesity with BMI of 50.0-59.9, adult 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 trimester AMA (advanced maternal age) primigravida 35+ FH: breast cancer FH: congenital heart problem Hypertriglyceridemia Hypokalemia 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 Supervision of high-risk Tachycardia Type 2 diabetes mellitus affecting in first trimester, antepartum 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 trimester Hypertension Hypothyroidism Morbid obesity with BMI of 50.0-59.9, adult Skin pain Skin tags, multiple acquired AMA (advanced maternal age) primigravida 35+ FH: breast cancer FH: congenital heart problem Hypertriglyceridemia Hypokalemia 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 Supervision of high-risk Tachycardia Type 2 diabetes mellitus affecting in first trimester, antepartum 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 trimester Hypertension Hypothyroidism Morbid obesity with BMI of 50.0-59.9, adult AMA (advanced maternal age) primigravida 35+ FH: breast cancer FH: congenital heart problem Hypertriglyceridemia Hypokalemia 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 Supervision of high-risk Tachycardia Type 2 diabetes mellitus affecting in first trimester, antepartum 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 trimester Hypertension Hypothyroidism Morbid obesity with BMI of 50.0-59.9, adult AMA (advanced maternal age) primigravida 35+ FH: breast cancer FH: congenital heart problem Hypertriglyceridemia Hypokalemia 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 Supervision of high-risk Tachycardia Type 2 diabetes mellitus affecting in first trimester, antepartum 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 trimester Hypertension Hypothyroidism Morbid obesity with BMI of 50.0-59.9, adult Additional Source Comments INFORMATION SOURCE (unrecogn ized section and content) DATE CREATED AUTHOR 02/13/2018 [facility] DATE CREATED AUTHOR AUTHOR'S ORGANIZ ATION 07/09/2023 [facility] DATE CREATED AUTHOR AUTHOR'S ORGANIZ ATION 12/22/2024 [facility] Goals (unrecognized section and content) Goals may be documented in a n alternate sectionGoals may be documented in an alternate sectionGoals may be documented in an alternate sectionGoals may be documented in an alternate sectionGoals may be documented in an alternate sectionGoals may be documented in an alternate sectionGoals may be documented in an alternate sectionGoals may be documented in an alternate sectionGoals may be documented in an alternate section Care Teams (unrecognized sec tion and content) Team Status: Active Member Role Status Dates No Primary Care Physician Family Provider Active Nemesio Zarco COBOL DEVELOPER, COBOL DEVELOPER-C Primary Care Provider Active Team Status: Inactive Member Role Status Dates No Primary Care Physician Primary Care Provider, Refer ring Provider Active Nemesio Zarco COBOL DEVELOPER, COBOL DEVELOPER-C Attending Provider Active Team Status: Inactive Member Role Status Dates Nemesio Zarco COBOL DEVELOPER, COBOL DEVELOPER-C Primary Care Provider, Attend ing Provider Active Team Status: Inactive Member Role Status Dates Nemesio Zarco NP, COBOL DEVELOPER-C Primary Care Provider, Referr ing Provider Active Dr. Mary Lou Pa DO Attending Provider Activ e Team Status: Inactive Member Role Status Dates Nemesio Zarco COBOL DEVELOPER, COBOL DEVELOPER-C Primary Care Pr ovider, Attending Provider, Referring Provider Active Team Status: Inactive Member Role Status Dates Nemesio Zarco COBOL DEVELOPER, COBOL DEVELOPER-C Primary Care Provider Active Dr. Mary Lou Pa DO Attending Provider, Refe rring Provider Active Director Cardiology Relationship Specialty Start Date End Date Nemesio Zarco APRN-[place] [address] [place] [address] PCP - General Family Medicine 03/13/23 Mary Lou Kamara DO [address] [address] Referring Physician Obstetrics Gynecology 03/24/23 Team Status: Inactive Member Role Status Dates Nemesio Zarco COBOL DEVELOPER, COBOL DEVELOPER-C Primary Care Provider, Referr ing Provider Active Ariana Soares CNM Attending Provider Active Team Status: Inactive Member Role Status Dates Nemesio Haroldo COBOL DEVELOPER, COBOL DEVELOPER-C Primary Care Provider, Referr ing Provider Active Dr. Dimas Reyez MD Attending Provider Active Team Status: Inactive Member Role Status Dates Nemesio Zarco COBOL DEVELOPER, COBOL DEVELOPER-C Primary Care Provider, Referr ing Provider Active Dr. Quincy Wang MD Attending Provider Active Team Status: Active Member Role Status Dates Nemesio Zarco COBOL DEVELOPER, COBOL DEVELOPER-C Primary Care Provider Active Dr. Quincy Wang MD Attending Provider Active Team Status: Active Member Role Status Dates Nemesio Zarco COBOL DEVELOPER, COBOL DEVELOPER-C Primary Care Provider Active Ariana Gomez COBOL DEVELOPER, COBOL DEVELOPER-C Attending Provider Active Team Status: Active Member Role Status Dates Nemesio Zarco COBOL DEVELOPER, COBOL DEVELOPER-C Primary Care Provider Active Patient Link Program Attending Provider Active Team Status: Inactive Member Role Status Dates Nemesio Zarco COBOL DEVELOPER, COBOL DEVELOPER-C Primary Care Provider Active Dr. Quincy Wang MD Attending Provider, Referring Pro vider Active Dr. Mary Lou Pa DO Other Provider Active Team Status: Active Member Role Status Dates Nemesio Zarco COBOL DEVELOPER, COBOL DEVELOPER-C Primary Care Provider Active Patient Link Program Attending Provider, Referring Pro vider Active Team Status: Inactive Member Role Status Dates Nemesio Zarco COBOL DEVELOPER, COBOL DEVELOPER-C Primary Care Provider, Referr ing Provider Active Dr. She Maldonado MD Attending Provider Active Team Status: Inactive Member Role Status Dates Nemesio Zarco COBOL DEVELOPER, COBOL DEVELOPER-C Primary Care Provider Active Dr. She Maldonado MD Attending Provider, Referr ing Provider Active Team Status: Active Member Role Status Dates Nemesio Zarco COBOL DEVELOPER, COBOL DEVELOPER-C Primary Care Provider Active Dr. She Maldonado MD Attending Provider, Referr ing Provider Active Team Status: Active Member Role Status Dates Nemesio Zarco COBOL DEVELOPER, COBOL DEVELOPER-C Primary Care Provider Active Dr. She Maldonado MD Attending Provider, Referr ing Provider Active Dr. Mary Lou Pa DO Other Provider Active Team Status: Inactive Member Role Status Dates Nemesio Zarco COBOL DEVELOPER, COBOL DEVELOPER-C Primary Care Provider Active Dr. She Maldonado MD Attending Provider, Referr ing Provider Active Dr. Mary Lou Pa , DO Other Provider Active FOR RECORDS PERTAINING TO PATIENTS WHO ARE [...] BE BASED ON THE PRIMARY CLINICAL RECORDS. [employer] [facility]. provides no warranty or guarantee of the accuracy or completeness of information in this document.
[2025-01-31 23:37] LABS: Hematocrit 39.0 % (37-47); Hemoglobin 13.4 g/dL (12.0-15.0); Immature Granulocytes Count 0.030 X10^3/uL (0.0-0.0); Mean Corp Hgb Conc 34.4 g/dL (32-36); Mean Corpuscular Volume 86.3 fL (81-99); Mean Platelet Vol. 9.8 fl (6.2-12.0); NRBC Flagged by Analyzer 0 % (0-5); Platelet Count 410 K/mm3 (150-450); RBC Distribution Width CV 14.9 % (11.6-14.6); RBC Distribution Width SD 47.7 fl (35.1-43.9); Red Blood Count 4.52 M/mm3 (4.2-5.4); White Blood Count 8.7 K/mm3 (4.4-11.0)
[2025-02-01 00:18] LABS: Cholesterol 181 mg/dL (<=200); Low Density Lipoprotein Calc. 85 mg/dL; Triglycerides 312 mg/dL; Very Low Density Lipoprotein 62 mg/dL (5-40); cholesterol:hdl ratio screen 4.06
[2025-02-01 00:53] LABS: AST(SGOT) 22 U/L (<=31); Alanine Aminotransfer ALT/SGPT 37 U/L (<=34); Albumin, Serum 4.3 g/dL (3.5-5.0); Alkaline Phosphatase 99 U/L (35-104); Anion Gap 12 (5-15); BUN 15 mg/dL (4-19); BUN/Creat Ratio 20.2 RATIO (10-20); Calcium,Total 9.6 mg/dL (7.6-11.0); Carbon Dioxide 24.9 mmol/L (21.0-32.0); Chloride 99 mmol/L (98-108); Globulin 3.7 g/dL (2.2-4.2); Glucose 95 mg/dL (70-99); Potassium 3.7 mmol/L (3.3-5.1)
== END | disposition home or self-care (01) ==
PROVIDERS: PCP Nurse Practitioner; Visit Provider Nurse Practitioner
DX: I10 Essential (primary) hypertension (principal); E03.9 Hypothyroidism, unspecified; E78.1 Pure hyperglyceridemia; R73.9 Hyperglycemia, unspecified
CPT/HCPCS: 80053; 80061; 84443; 85025